=== PATIENT | female | born 1990 | race Caucasian/White ===

== ENCOUNTER → 2017-10-12 13:37 | Outpatient (CLI) | payer MEDICAID, SELFPAY ==
--- NOTE | 2017-10-12 13:37 | DT_ITS ---
This patient was seen during an EMR downtime October 11, 2017 - October 18, 2017. This patient may have a combination of paper and electronic documentation or all paper documentation. All documentation is viewable within the e-chart portion of [employer] for each patient visit.
== END ==
PROVIDERS: Family Provider Family Medicine; PCP Family Medicine; Visit Provider Obstetrics & Gynecology
DX: Z34.90 Encounter for supervision of normal pregnancy, unspecified, unspecified trimester (principal)
CPT/HCPCS: 81001; 87086; 87088

== ENCOUNTER → 2017-10-12 15:00 | Outpatient (CLI) | payer MEDICAID, SELFPAY ==
--- NOTE | 2017-10-12 15:00 | DT_ITS ---
This patient was seen during an EMR downtime October 11, 2017 - October 18, 2017. This patient may have a combination of paper and electronic documentation or all paper documentation. All documentation is viewable within the e-chart portion of [employer] for each patient visit.
[2017-10-17 10:06] LABS: Chlamydia Trachomatis by PCR Negative (Negative); Neisserai gonorrhoeae by PCR Negative (Negative); Probe Check PASS; Sample Adequacy Control PASS; Specimen Processing Control PASS
[2017-10-27 09:25] LABS: HPV APTIMA, High Risk Negative (Negative)
[2017-10-27 09:26] LABS: HPV Reflexed? YES, CHARGE PATIENT
== END ==
PROVIDERS: Visit Provider Obstetrics & Gynecology
DX: Z12.4 Encounter for screening for malignant neoplasm of cervix (principal)
CPT/HCPCS: 87491; 87591; 87624; 88175; G0145

== ENCOUNTER → 2017-10-25 14:33 | Outpatient (CLI) | payer MEDICAID, SELFPAY ==
[2017-10-25 16:21] LABS: Basophil# 0.01 X10^3/uL; Basophil% 0.1 % (0-1); Hematocrit 35.5 % (37-47); Hemoglobin 11.5 g/dl (12.0-15.0); Lymphocyte % 25.4 % (19-41); Mean Corp Hgb Conc 32.4 g/gl (32-36); Mean Corpuscular Hgb 27.6 pg (27.0-32.0); Mean Corpuscular Volume 85.3 fL (81-99); Mean Platelet Vol. 9.6 fl (6.2-12.0); Monocyte# 0.39 X10^3/uL; Monocyte% 3.8 % (0-10); Neutrophil # 7.02 X10^3/uL (2.7-7.7); Neutrophil % 68.5 % (47-70); Platelet Count 273 K/mm3 (150-450); RBC Distribution Width CV 14.3 % (11.6-14.6); RBC Distribution Width SD 43.7 fl (35.1-43.9); Red Blood Count 4.16 M/mm3 (4.2-5.4); White Blood Count 10.2 K/mm3 (4.4-11.0)
[2017-10-25 16:23] LABS: POSITIVE COUNT NO; POSITIVE DIFFERENTIAL NO; POSITIVE MORPHOLOGY NO
[2017-10-25 16:44] LABS: Glucose Challenge Gest 1H 50g 105 mg/dL (70-140)
[2017-10-25 17:09] LABS: Rubella IgG 15.9 IU/mL
[2017-10-27 09:47] LABS: HIV - WCH Non-Reactive (Nonreactive)
[2017-10-27 12:14] LABS: HEPATITIS B SURFACE AG Negative (Negative); Hep B Surface Antibodies Reactive (.)
[2017-10-29 03:47] LABS: Rapid Plasmin Reagin (RPR) NONREACTIVE (NONREACTIVE)
== END ==
PROVIDERS: Family Provider Family Medicine; PCP Family Medicine; Visit Provider Obstetrics & Gynecology
DX: Z34.90 Encounter for supervision of normal pregnancy, unspecified, unspecified trimester (principal)
CPT/HCPCS: 36415; 82950; 85025; 86592; 86703; 86706; 86762; 86850; 86900; 87340

== ENCOUNTER → 2017-10-29 10:36 | Outpatient (CLI) | payer MEDICAID, SELFPAY ==
--- NOTE | 2017-10-29 10:39 | US_ITS ---
STUDY: FIRST TRIMESTER OBSTETRICAL ULTRASOUND REASON FOR EXAM: Female, 27 years old. Threatened . LMP: August 12, 2017. TECHNIQUE: Transvaginal PRIOR ULTRASOUND: None. FINDINGS: There is visualization of a single gestational sac in a normal intrauterine position. The mean sac diameter (MSD) measures 2.51 cm, indicating an estimated gestational age (EGA) of 7 weeks, 5 days. The gestational sac shape is within normal limits. There is a 1.7 cm x 0.5 cm x 1.0 cm subchorionic fluid collection suggestive of a small subchorionic bleed. There is a visualized yolk sac. The yolk sac measures 6.1 mm. The placenta is non-visualized. There is visualization of a live embryo. The crown-rump length (CRL) measures 1.49 cm, indicating an estimated gestational age (EGA) of 7 weeks, 6 days. There is demonstrated cardiac activity with a heart rate of 149 bpm. The estimated gestation age (EGA) by LMP is 11 weeks, 1 days. The estimated date of delivery (GARY) by LMP is May 19, 2018. The estimated gestation age (EGA) by US is 7 weeks, 6 days. The estimated date of delivery (GARY) by US is June 11, 2018. The uterus measures 9.6 cm x 5.4 cm x 5.6 cm. There is no demonstrated uterine fibroid. The cervix is closed. The right ovary was not visualized. The left ovary was not visualized. There is no fluid in the cul de sac. US/Init OB < 14Wks US IMPRESSION: Single live uterine gestation with a mean gestational age of 7 weeks and 6 days. Findings suggestive of a small subchorionic bleed. Electronically Signed: Erick Rand MD at 14:10 EDT Tel [phone], Service support ,
== END ==
PROVIDERS: Family Provider Family Medicine; PCP Family Medicine; Visit Provider Obstetrics & Gynecology
DX: O20.0 Threatened abortion (principal); Z3A.00 Weeks of gestation of pregnancy not specified
CPT/HCPCS: 76801

== ENCOUNTER 2017-11-23 17:54 | Emergency (ER) | payer MEDICAID, SELFPAY ==
[2017-11-23 17:56] VITALS: BP 146/117; PULSE 95; RESP 18; TEMP 37.1; O2SAT 100; BMI 58.1
--- NOTE | 2017-11-23 18:22 | US_ITS ---
STUDY: FIRST TRIMESTER OBSTETRICAL ULTRASOUND REASON FOR EXAM: Female, 27 years old. Sharp lower pelvic pain and bleeding. LMP: September 04, 2017. TECHNIQUE: Transvaginal PRIOR ULTRASOUND: None. FINDINGS: There is visualization of a single gestational sac in a normal intrauterine position. The mean sac diameter (MSD) measures 4.94 cm, indicating an estimated gestational age (EGA) of 10 weeks, 6 days. There is no demonstrated yolk sac. There is visualization of the placenta. The placenta is anterior in location and grade 0 in appearance. There is visualization of a live embryo. The crown-rump length (CRL) measures 4.54 cm, indicating an estimated gestational age (EGA) of 11 weeks, 3 days. There is demonstrated cardiac activity with a heart rate of 164 bpm. The estimated gestation age (EGA) by LMP is 11 weeks, 3 days. The estimated date of delivery (GARY) by LMP is June 11, 2018. The estimated gestation age (EGA) by US is 11 weeks, 1 days. The estimated date of delivery (GARY) by US is June 13, 2018. The uterus measures 11 x 7.2 x 7 cm. There is no demonstrated uterine fibroid. The cervix is there is an area of increased echogenicity along the inferior aspect of the gestational sac. Etiology is uncertain. This may represent a subchorionic hematoma. The right ovary is not visualized. There is no visualized right adnexal mass or complex lesion. The left ovary measures 3.6 x 2.3 x 2.0. There is no left ovarian cyst. There is no visualized left adnexal mass or complex lesion. There is no fluid in the cul de sac. US/Transvaginal w/Preg US IMPRESSION: 1. Live single intrauterine 11 weeks, 1 day. GARY is June 13, 2018. 2. heart rate of 16 4 bpm. 3. Echogenic area between the gestational sac and cervix. Question subchorionic hemorrhage. 4. Normal left ovary. The right ovary is not seen. Electronically Signed: Julian Becerra DO at 19:30 EDT Tel [phone], Service support ,
--- NOTE | 2017-11-23 21:03 | ED.VISSUMM ---
- ER Visit Summary Date of Service: 11/23/17 Chief Complaint: Vaginal bleeding and History of Present Illness: The patient is a 27 F states that she had pelvic cramping today. Had several episodes of vaginal bleeding. Some minor clots other just spotting. Denies discharge or dysuria. She is currently at around 11 weeks. with 2 prior miscarriages. Last menstrual period was July 2017. She is currently under the care of Dr. Guardado of [facility]. Physical Examination: Well-appearing young female. Vital signs are stable afebrile. H EENT exam unremarkable. Neck nontender. Lungs clear to auscultation bilaterally. Heart regular rate and rhythm no murmur. Abdomen soft nontender normal bowel sounds no peritoneal signs. Moving all 4 extremities. Neurologically she is awake alert with no focal motor deficits. Test Results: Pelvic T ATV ultrasound was performed. Showed a 11 weeks 1 day. heart rate 164. Questionable subchorionic bleed. Quantitative hCG was 33,097. Blood type was O+. Emergency Department Course and Treatment: Repeat exam patient doing well at 2014 and 5. She will be discharged to home. She was offered but deferred a pelvic exam at this time. Treatment Plan: Follow-up with her [facility]. Disposition: Discharge Impression: Acute vaginal bleeding at 11 weeks Threatened miscarriage with 2 prior miscarriages This note was generated with [employer] dictation software. It may contain incorrect words, spelling, and punctuation that were not noted in review of the chart prior to signing ED Disposition - Plan for ED Patient: Chief Complaint: Vag Bld, Preg Referrals: Didier Albert DO [Primary Care Provider] -
--- NOTE | 2017-11-23 21:07 | DCINST.ED_ITS ---
ED Disposition - Plan for ED Patient: Disposition: Home or Assisted Living Chief Complaint: Vag Bld, Preg Instructions: ED Miscarriage Poss Referrals: Marion Naranjo MD [STAFF PHYSICIAN] - As soon as possible Additional Instructions: Call follow-up with your [facility] [employer]. Exam your bleeding or that is potentially a concern for a miscarriage. At this time you were still 11 weeks. Your blood type is O+.
[2017-11-23 21:21] VITALS: BP 134/94; PULSE 78; RESP 16; O2SAT 98
== END 2017-11-23 21:22 | disposition home or self-care (01) ==
PROVIDERS: Emergency Provider Emergency Medicine; Family Provider Family Medicine; PCP Family Medicine
DX: O20.0 Threatened abortion (principal); O99.89 Other specified diseases and conditions complicating pregnancy, childbirth and the puerperium; R11.2 Nausea with vomiting, unspecified; Z90.49 Acquired absence of other specified parts of digestive tract; Z3A.11 11 weeks gestation of pregnancy
CPT/HCPCS: 76817; 84702; 86900; 99282

== ENCOUNTER → 2018-01-17 16:40 | Outpatient (CLI) | payer MEDICAID, SELFPAY ==
--- NOTE | 2018-01-17 16:48 | US_ITS ---
STUDY: SECOND AND THIRD TRIMESTER OBSTETRICAL ULTRASOUND - LIMITED REASON FOR EXAM: Female, 27 years old. Routine survey. LMP: November 23, 2017 PRIOR ULTRASOUND: None. TECHNIQUE: Transabdominal ultrasound evaluation was performed. The study is limited due to the patient's body habitus. FINDINGS: There is a single intrauterine fetus. The fetus is in a cephalic presentation. There is demonstrated cardiac activity with a heart rate of 150 bpm. There are Grade 1 placental changes. BIOMETRY: Not visualized due to patient's body habitus. US/OB Limited (No Biometrics) IMPRESSION: Live intrauterine gestation. Marked degree of the limited view due to the patient's body habitus. Electronically Signed: Erick Rand MD at 13:38 EDT Tel [phone], Service support ,
== END ==
PROVIDERS: Family Provider Family Medicine; PCP Family Medicine; Visit Provider Obstetrics & Gynecology
DX: Z34.82 Encounter for supervision of other normal pregnancy, second trimester (principal)
CPT/HCPCS: 76805; 76815

== ENCOUNTER 2018-01-24 14:21 | Emergency (ER) | payer MEDICAID, SELFPAY ==
[2018-01-24 14:21] VITALS: BP 160/86; PULSE 96; RESP 18; TEMP 36.3; O2SAT 98; BMI 59.7
--- NOTE | 2018-01-24 14:32 | EKG12_ITS ---
Test Reason : SOB Blood Pressure : / mmHG Vent. Rate : 079 BPM Atrial Rate : 079 BPM P-R Int : 150 ms QRS Dur : 094 ms QT Int : 376 ms P-R-T Axes : 038 010 021 degrees QTc Int : 431 ms Normal sinus rhythm Normal ECG Confirmed by DANE RESENDIZ, AJIT ([id number]), editorial assistant MORENO OWUSU ([id number]) on 01/27/2018 1:08:54 PM Referred By: Marion Naranjo Confirmed By:AJIT VELA MD
[2018-01-24 14:39] VITALS: BP 134/114; PULSE 72; RESP 23; O2SAT 97; O2SAT 98
--- NOTE | 2018-01-24 15:15 | RAD_ITS ---
STUDY: X-RAY CHEST REASON FOR EXAM: Female, 27 years old. Dyspnea and shortness of breath. Syncopal episodes. The patient is 20 weeks . The patient was shielded appropriately. TECHNIQUE: PA and lateral views of the chest. COMPARISON: None. FINDINGS: EKG electrodes are seen. The lungs are clear and expanded. There is no demonstrated pleural abnormality. Normal size heart. Normal mediastinum and fallon. Normal visualized pulmonary arteries. Normal visualized aortic arch and descending thoracic aorta. Normal visualized thoracic spine. Normal visualized ribs, clavicles, and shoulders. There is no demonstrated abnormality of the visualized soft tissue structures of the upper abdomen. RAD/Chest PA and Lateral IMPRESSION: Normal x-ray examination of the chest. Electronically Signed: Erick Rand MD at 15:33 EDT Tel [phone], Service support ,
[2018-01-24 15:23] LABS: Absolute Lymphocyte Count 2.27 X10^3/ul (0.83-4.51); Absolute Neutrophil Count 7.8 X10^3/uL (2.0-7.7); Basophil# 0.02 X10^3/uL; Basophil% 0.2 % (0-1); Eosinophil# 0.15 X10^3/uL; Eosinophils% 1.4 % (0-5); Hematocrit 30.8 % (37-47); Hemoglobin 10.3 g/dl (12.0-15.0); Lymphocyte # 2.27 X10^3/ul (4.0); Lymphocyte % 20.9 % (19-41); Mean Corp Hgb Conc 33.4 g/gl (32-36); Mean Corpuscular Hgb 28.9 pg (27.0-32.0); Mean Corpuscular Volume 86.5 fL (81-99); Mean Platelet Vol. 9.5 fl (6.2-12.0); Monocyte# 0.62 X10^3/uL; Monocyte% 5.7 % (0-10); Neutrophil # 7.75 X10^3/uL (2.7-7.7); Neutrophil % 71.2 % (47-70); Platelet Count 247 K/mm3 (150-450); RBC Distribution Width CV 15.8 % (11.6-14.6); RBC Distribution Width SD 48.2 fl (35.1-43.9); Red Blood Count 3.56 M/mm3 (4.2-5.4); White Blood Count 10.9 K/mm3 (4.4-11.0)
[2018-01-24 15:26] LABS: POSITIVE COUNT NO; POSITIVE DIFFERENTIAL NO; POSITIVE MORPHOLOGY NO
[2018-01-24 15:28] LABS: Partial Thromboplast Time 28.8 Seconds (24.1-36.2)
[2018-01-24 15:36] LABS: ALB/GLOB Ratio 0.6 RATIO (0.9-2.4); AST(SGOT) 12 U/L (15-37); Alanine Aminotransfer ALT/SGPT 26 U/L (13-56); Albumin, Serum 2.7 g/dL (3.2-5.0); Alkaline Phosphatase 73 U/L (45-117); Anion Gap 9 (5-15); BUN 7 mg/dL (7-18); BUN/Creat Ratio 13.2 RATIO (10-20); Calcium,Total 8.6 mg/dL (8.5-10.1); Chloride 107 mmol/L (98-107); Creatinine, Serum 0.53 mg/dL (0.55-1.02); EST Glomerular Filtration Rate 147 mL/min (>60); Est Glom Filt Rate - Afr Amer 178 mL/min (>60); Estimated Creatinine Clearance 137.68 ml/min; Globulin 4.3 g/dL (2.2-4.2); Glucose 70 mg/dL (74-106); LDH 135 U/L (84-246); Potassium 3.7 mmol/L (3.5-5.1); Sodium Level 138 mmol/L (136-145); Uric Acid 4.2 mg/dL (2.6-6.0)
[2018-01-24 15:39] LABS: D-Dimer Quantitative (DVT/PE) < 0.27 FEU/ug/m (0.27-0.49)
[2018-01-24 15:40] VITALS: BP 111/61; PULSE 76; RESP 20; O2SAT 97
[2018-01-24] MEDS: Ondansetron 4 MG/2 ML Vial IV (15:48)
[2018-01-24 16:08] LABS: Mucous, Urine 0 SEEN /hpf (<or=2+); Red Blood Cells-Urine 0 SEEN /hpf (0-5); White Blood Cells 0 SEEN /hpf (0-5)
[2018-01-24 16:15] LABS: Color, Urine Yellow (Yellow); Glucose, Dipstick Normal (Normal); Ketone-Dipstick Negative (Negative); Leukocyte Esterase-Dipstick 25 /ul (Negative); Nitrite-Dipstick Negative (Negative); Occult Blood-Urine Negative /ul (Negative); Protein-Dipstick 15 mg/dl (Negative); Specific Gravity, Urine 1.015 (1.002-1.030); Urine Bilirubin Dipstick Negative (Negative); Urine Clarity Sl. Cloudy (Clear); Urine Urobilinogen 1 mg/dl (Normal); Urine pH 6.5 (5.0 - 8.0)
[2018-01-24 16:31] LABS: Bacteria 3+ /hpf (None Seen); Squamous Epithelial Cells - UA 5-10 SEEN /hpf (5-10)
--- NOTE | 2018-01-24 16:39 | ED.VISSUMM ---
- ER Visit Summary Date of Service: 01/24/18 Chief Complaint: Chest pressure and shortness of breath History of Present Illness: The patient is a 27 F who is a Ab2 female who presents with chest pressure and shortness of breath that started abruptly. She states she cannot walk more than 25 feet without becoming dyspneic. She denies back pain. She denies leg pain, swelling discoloration. She denies fever, chills night sweats. She denies URI symptoms. She does complain of nausea without vomiting or diarrhea. She does complain complain of frequency without urgency, hematuria or dysuria. She denies any skin lesions. Physical Examination: Initial blood pressure 160/86 with a heart rate of 96. Pulse ox was 98% on room air. She appears slightly anxious. Does not appear in discomfort. Head is atraumatic normocephalic. Pupils are equal round reactive. Extraocular muscles are intact. TMs are pearly white with landmarks noted. Nares patent with no drainage. Posterior pharynx without erythema or exudate. Uvula is midline. There is no dysphonia or dysphasia. Trachea is midline. There is no stridor with auscultation of the neck. Heart is regular without murmur, gallop or rub. S1 and S2 are normal. Lungs are clear to auscultation with good movement of air bilaterally. Abdomen is soft nontender. Patient is alert and oriented ?3. Motor is 5 over 5. Sensory is intact. DTRs are symmetric with no clonus or Babinski sign. Cranial 2 through 12 are intact. Cerebellar testing is normal. There is no pedal edema. There is no asymmetry, swelling, discoloration, leg vein distention, palpable cords or tenderness along the distribution of the deep venous system. Test Results: EKG was obtained and reveals a sinus rhythm rate of 79 with normal [place] interval, QRS duration and QT interval. [place] is normal. Chest x-ray was obtained and reveals normal cardiac silhouette, mediastinum, lung parenchyma and osseous structures. There is no effusion. CBC is remarkable for an H&H 10.3 and 38.8. CMP is remarkable for an albumin 2.7. Coags are normal. Uric acid is normal. UA is a contaminated specimen. D-dimer is less than 0.27. Emergency Department Course and Treatment: With history of abrupt onset of chest discomfort dyspnea and 20 weeks gestation differential includes pulmonary embolus, pneumothorax, preeclampsia. Doubt cardiac and doubt pneumonia. Case was discussed with her civil clerk Dr. Marion Naranjo. Most recent blood pressure was normal. Treatment Plan: After discussion with her civil clerk patient to be discharged to home with follow-up in the next week Disposition: Discharged to home Impression: 1. Chest pain with dyspnea of unknown etiology 2. Transient hypertension 3. Anemia secondary to , second trimester This note was generated with [employer] dictation software. It may contain incorrect words, spelling, and punctuation that were not noted in review of the chart prior to signing ED Disposition - Plan for ED Patient: Disposition: Home or Assisted Living Chief Complaint: Shortness of Breath Instructions: ED Chest Pain NonCardiac Referrals: Didier Albert DO [Primary Care Provider] - Marion Naranjo MD [STAFF PHYSICIAN] - Keep Amanda appointment
--- NOTE | 2018-01-24 16:44 | ED.DCSUM_ITS ---
- ER Visit Summary Date of Service: 01/24/18 Chief Complaint: Chest pressure and shortness of breath History of Present Illness: The patient is a 27 F who is a Ab2 female who presents with chest pressure and shortness of breath that started abruptly. She states she cannot walk more than 25 feet without becoming dyspneic. She denies back pain. She denies leg pain, swelling discoloration. She denies fever, chills night sweats. She denies URI symptoms. She does complain of nausea without vomiting or diarrhea. She does complain complain of frequency without urgency, hematuria or dysuria. She denies any skin lesions. Physical Examination: Initial blood pressure 160/86 with a heart rate of 96. Pulse ox was 98% on room air. She appears slightly anxious. Does not appear in discomfort. Head is atraumatic normocephalic. Pupils are equal round reactive. Extraocular muscles are intact. TMs are pearly white with landmarks noted. Nares patent with no drainage. Posterior pharynx without erythema or exudate. Uvula is midline. There is no dysphonia or dysphasia. Trachea is midline. There is no stridor with auscultation of the neck. Heart is regular without murmur, gallop or rub. S1 and S2 are normal. Lungs are clear to auscultation with good movement of air bilaterally. Abdomen is soft nontender. Patient is alert and oriented ?3. Motor is 5 over 5. Sensory is intact. DTRs are symmetric with no clonus or Babinski sign. Cranial 2 through 12 are intact. Cerebellar testing is normal. There is no pedal edema. There is no asymmetry, swelling, discoloration, leg vein distention, palpable cords or tenderness along the distribution of the deep venous system. Test Results: EKG was obtained and reveals a sinus rhythm rate of 79 with normal MI interval, QRS duration and QT interval. [place] is normal. Chest x-ray was obtained and reveals normal cardiac silhouette, mediastinum, lung parenchyma and osseous structures. There is no effusion. CBC is remarkable for an H&H 10.3 and 38.8. CMP is remarkable for an albumin 2.7. Coags are normal. Uric acid is normal. UA is a contaminated specimen. D-dimer is less than 0.27. Emergency Department Course and Treatment: With history of abrupt onset of chest discomfort dyspnea and 20 weeks gestation differential includes pulmonary embolus, pneumothorax, preeclampsia. Doubt cardiac and doubt pneumonia. Case was discussed with her orthotic and prosthetic technician Dr. Marion Naranjo. Most recent blood pressure was normal. Treatment Plan: After discussion with her orthotic and prosthetic technician patient to be discharged to home with follow-up in the next week Disposition: Discharged to home Impression: 1. Chest pain with dyspnea of unknown etiology 2. Transient hypertension 3. Anemia secondary to , second trimester This note was generated with [employer] dictation software. It may contain incorrect words, spelling, and punctuation that were not noted in review of the chart prior to signing ED Disposition - Plan for ED Patient: Disposition: Home or Assisted Living Chief Complaint: Shortness of Breath Instructions: ED Chest Pain NonCardiac Referrals: Didier Albert DO [Primary Care Provider] - Marion Naranjo MD [STAFF PHYSICIAN] - Keep Amanda appointment
[2018-01-24 17:02] VITALS: BP 146/73; PULSE 72; RESP 18; O2SAT 95
== END 2018-01-24 17:04 | disposition home or self-care (01) ==
PROVIDERS: Emergency Provider Emergency Medicine; Family Provider Family Medicine; PCP Family Medicine
DX: O99.89 Other specified diseases and conditions complicating pregnancy, childbirth and the puerperium (principal); R07.89 Other chest pain; R06.00 Dyspnea, unspecified; O13.2 Gestational [pregnancy-induced] hypertension without significant proteinuria, second trimester; O99.012 Anemia complicating pregnancy, second trimester; D64.9 Anemia, unspecified; Z3A.20 20 weeks gestation of pregnancy
CPT/HCPCS: 71046; 80053; 81001; 83615; 84484; 84550; 85025; 85379; 85610; 85730; 93005; 96374; 99284; A4216; J2405

== ENCOUNTER 2018-03-21 09:31 | Outpatient (RCR) | payer MEDICAID, SELFPAY | END 2018-03-21 23:59 | LOC: NS 09:31 | PROVIDERS: Family Provider Family Medicine; PCP Family Medicine; Visit Provider Obstetrics & Gynecology | DX: O26.02 Excessive weight gain in pregnancy, second trimester (principal); Z71.3 Dietary counseling and surveillance | CPT/HCPCS: 36415; 82950; 85025; 97802 ==

== ENCOUNTER → 2018-03-21 16:04 | Outpatient (CLI) | payer MEDICAID, SELFPAY ==
[2018-03-21 17:13] LABS: Absolute Lymphocyte Count 2.09 X10^3/ul (0.83-4.51); Absolute Neutrophil Count 7.9 X10^3/uL (2.0-7.7); Basophil# 0.02 X10^3/uL; Basophil% 0.2 % (0-1); Eosinophil# 0.17 X10^3/uL; Eosinophils% 1.5 % (0-5); Hematocrit 30.6 % (37-47); Lymphocyte # 2.09 X10^3/ul (4.0); Lymphocyte % 19.1 % (19-41); Mean Corp Hgb Conc 32.7 g/gl (32-36); Mean Corpuscular Hgb 29.1 pg (27.0-32.0); Mean Platelet Vol. 9.6 fl (6.2-12.0); Monocyte# 0.67 X10^3/uL; Monocyte% 6.1 % (0-10); Neutrophil # 7.94 X10^3/uL (2.7-7.7); Neutrophil % 72.4 % (47-70); Platelet Count 239 K/mm3 (150-450); RBC Distribution Width CV 15.8 % (11.6-14.6); RBC Distribution Width SD 49.3 fl (35.1-43.9); Red Blood Count 3.44 M/mm3 (4.2-5.4)
[2018-03-21 17:27] LABS: Glucose Challenge Gest 1H 50g 93 mg/dL (70-140)
[2018-03-21 17:29] LABS: POSITIVE COUNT NO; POSITIVE DIFFERENTIAL NO; POSITIVE MORPHOLOGY NO
== END ==
PROVIDERS: Nurse Practitioner Women's Health; Family Provider Family Medicine; PCP Family Medicine; Referring Provider Obstetrics & Gynecology; Visit Provider Obstetrics & Gynecology
DX: Z34.90 Encounter for supervision of normal pregnancy, unspecified, unspecified trimester (principal); Z71.3 Dietary counseling and surveillance
CPT/HCPCS: 36415; 82950; 85025; 97802

== ENCOUNTER 2018-03-27 19:05 | Outpatient (CLI) | payer MEDICAID, SELFPAY ==
[2018-03-27 19:32] VITALS: BMI 62.4
--- NOTE | 2018-03-28 21:01 | OB.TRI.NOTE ---
- Problem List (1) Decreased movement Status: Acute History of Present Illness Date of Service: 03/27/18 Was patient seen by the physician?: No Reason For Visit: DFM History of Present Illness: decreased movement Allergies codeine Allergy (Unknown, Verified 03/27/18 19:34) Unknown acetaminophen [From Vicodin] Allergy (Verified 03/27/18 19:34) Unknown hydrocodone [From Vicodin] Allergy (Verified 03/27/18 19:34) Unknown latex Allergy (Verified 03/27/18 19:34) Rash Penicillins Allergy (Verified 03/27/18 19:34) Unknown - Pertinent Past Medical History Medical History: Past Medical History (Last Reviewed 03/21/18 @ 15:22 by Tayler Piña) cholecystctomy tubes in ears Surgical History: Past Surgical History (Last Reviewed 03/21/18 @ 15:15 by Tayler Piña) toncillectomy NST - FHR Rate Baby A Baseline: 120 Variability:: Moderate Accelerations:: 10 x 10 Decelerations:: None NST Reactive:: Yes FHR Category:: Category I Uterine Activity:: no regular Impression/Plan decreased movement- reactive and getstational age appropriate dc home
== END 2018-03-27 20:50 | disposition home or self-care (01) ==
LOC: WPOUT 19:09 → WP 19:10
PROVIDERS: Family Provider Family Medicine; PCP Family Medicine; Visit Provider Obstetrics & Gynecology
DX: O36.8190 Decreased fetal movements, unspecified trimester, not applicable or unspecified (principal); Z3A.00 Weeks of gestation of pregnancy not specified
CPT/HCPCS: 59025; 59050; 99218; G0378

== ENCOUNTER 2018-04-04 13:40 | Outpatient (CLI) | payer MEDICAID, SELFPAY ==
[2018-04-04 14:03] VITALS: BMI 62.7
--- NOTE | 2018-04-06 08:27 | OB.TRI.NOTE ---
History of Present Illness Date of Service: 04/04/18 Was patient seen by the physician?: No Reason For Visit: DECREASED MOVEMENT Date of Service: 04/04/18 Final GARY: 06/11/18 Final GARY Source: US <20 weeks Gestational age: 30 Weeks and 2 Days History of Present Illness: 27 yo female presents for eval 2/2 dec movement. (High BMI). Allergies codeine Allergy (Unknown, Verified 03/27/18 19:34) Unknown acetaminophen [From Vicodin] Allergy (Verified 03/27/18 19:34) Unknown hydrocodone [From Vicodin] Allergy (Verified 03/27/18 19:34) Unknown latex Allergy (Verified 03/27/18 19:34) Rash Penicillins Allergy (Verified 03/27/18 19:34) Unknown - Pertinent Past Medical History Medical History: Past Medical History (Last Reviewed 03/21/18 @ 15:22 by Tayler Piña) cholecystctomy tubes in ears Surgical History: Past Surgical History (Last Reviewed 03/21/18 @ 15:15 by Tayler Piña) toncillectomy NST - FHR Rate Baby A Baseline: 130-140s avg with accels 150s variables 120 Variability:: Moderate Accelerations:: 15 x 15, 10 x 10 Decelerations:: Variable NST Reactive:: Appropriate for gestational age FHR Category:: Category I Uterine Activity:: Intermittent tracing, high BMI. No UCs noted. Impression/Plan 30 2/7 wk EGA Maternal c/o Dec movement NST reassuring for 30 wks Home. Keep next appt. kick count instructions to be given.
== END 2018-04-04 16:01 | disposition home or self-care (01) ==
LOC: LAB 13:43 → WP 13:44
PROVIDERS: Family Provider Family Medicine; PCP Family Medicine; Referring Provider Obstetrics & Gynecology; Visit Provider Obstetrics & Gynecology
DX: O36.8130 Decreased fetal movements, third trimester, not applicable or unspecified (principal); O76 Abnormality in fetal heart rate and rhythm complicating labor and delivery; Z3A.30 30 weeks gestation of pregnancy
CPT/HCPCS: 59025; 59050; 99218; G0378

== ENCOUNTER → 2018-05-16 12:49 | Outpatient (CLI) | payer MEDICAID, SELFPAY ==
[2018-05-16 10:19] VITALS: BMI 62.7
== END ==
PROVIDERS: Family Provider Family Medicine; PCP Family Medicine; Referring Provider Obstetrics & Gynecology; Visit Provider Obstetrics & Gynecology
DX: Z34.90 Encounter for supervision of normal pregnancy, unspecified, unspecified trimester (principal)
CPT/HCPCS: 87081

== ENCOUNTER 2018-05-27 20:35 | Outpatient (CLI) | payer MEDICAID, SELFPAY ==
[2018-05-23 11:13] VITALS: BMI 62.7
[2018-05-27 22:14] VITALS: BMI 65.0
--- NOTE | 2018-05-31 19:31 | OB.TRI.NOTE ---
- Problem List (1) Decreased movement Status: Acute (2) Anemia during Status: Acute Comment: To start iron (3) Status: Acute Qualifiers: Comment: genetic, ntd and carrier screening declined. Growth US-normal. Growth US every 4 weeks with weekly BPP. Weekly NST; normal BPP 04/28/18 (4) Supervision of normal Status: Acute Qualifiers: Comment: PRR GARY 06/11/18 boy- Junaid Kristopher (5) Obesity affecting Status: Acute Qualifiers: Comment: 1st trimester glucola normal and plan weekly bpps with MFM, growth q4 weeks after 32 weeks, MFM recommends delivery at 39-40 weeks (6) ASCUS favor benign Status: Acute Comment: 2018 ascus hpv neg History of Present Illness Date of Service: 05/31/18 Was patient seen by the physician?: No Reason For Visit: DECREASED MOVEMENT Final GARY Source: US <20 weeks History of Present Illness: decreased movement Allergies codeine Allergy (Unknown, Verified 05/30/18 11:29) Unknown acetaminophen [From Vicodin] Allergy (Verified 05/30/18 11:29) Unknown hydrocodone [From Vicodin] Allergy (Verified 05/30/18 11:29) Unknown latex Allergy (Verified 05/30/18 11:29) Rash Penicillins Allergy (Verified 05/30/18 11:29) Unknown - Pertinent Past Medical History Surgical History: Past Surgical History (Last Reviewed 05/30/18 @ 11:29 by Tayler Piña) History of placement of ear tubes History of tonsillectomy Hx of cholecystectomy Review of Systems Constitutional: Denies: Fever, Malaise Eyes: Denies: Blurred vision, Vision Change HEENT: Denies: Head Aches, Visual Changes Cardiovascular: Denies: Chest Pain, Palpitations Respiratory: Denies: Cough, Shortness of Breath, Wheezing Gastrointestinal: Denies: Abdominal Pain, Diarrhea, Nausea, Vomiting Genitourinary: Denies: Dysuria, Hematuria Musculoskeletal: Denies: Joint Pain, Muscle pain Skin: Denies: Lesions, Rash Neurological: Denies: Blurred vision, Focal weakness, Headaches Psychiatric: Denies: Anxiety, Depression Endocrine: Denies: Heat/ Cold Intolerance Hematologic/ Lymphatic: Denies: Easy Bruising, Easy Bleeding NST - FHR Rate Baby A Baseline: 130 Variability:: Moderate Accelerations:: 15 x 15 Decelerations:: None NST Reactive:: Yes FHR Category:: Category I Uterine Activity:: no regular Impression/Plan decreased movement - reactive no decels
--- OUTSIDE RECORDS SUMMARY | 2018-08-01 08:36 | XMS RPT_ITS ---
:1990 Author Organization OHIP Support Name Relationship Address Phone KRISTOPHER REYES Unavailable [id number] + [place] [address] HOME INSTEAD Unavailable [address] + [address] [place] [address] KRISTOPHER REYES Unavailable [address] + [place] [address] HOME INSTEAD Unavailable [address] + [address] [place] [address] KRISTOPHER REYES Unavailable [address] + [place] [address] HOME INSTEAD Unavailable [address] + [address] [place] [address] KRISTOPHER REYES Unavailable [address] + [place] [address] HOME INSTEAD Unavailable [address] + [address] [place] [address] KRISTOPHER REYES Unavailable [address] + [place] [address] KRISTOPHER REYES Unavailable [address] + [place] [address] HOME INSTEAD Unavailable [address] + [address] [place] [address] KRISTOPHER REYES Unavailable [address] + [place] [address] KRISTOPHER REYES Unavailable [address] + [place] [address] HOME INSTEAD Unavailable [address] + [address] [place] [address] KRISTOPHER REYES Unavailable [address] + [place] [address] HOME INSTEAD Unavailable [address] + [address] [place] [address] REYES, KRISTOPHER Unavailable [address] + [place] [address] REYES, KRISTOPHER Unavailable [address] + [place] [address] HOME INSTE[employer] Unavailable [address] + [address] [place] [address] REYES, KRISTOPHER Unavailable [address] + [place] [address] ERIC KRISTOPHER Unavailable [address] + [place] [address] ERIC KRISTOPHER Unavailable [address] + [place] [address] ERIC KRISTOPHER Unavailable [address] + [place] [address] HOME INSTEAD Unavailable [address] + [address] [place] [address] ERIC KRISTOPHER Unavailable [address] + [place] [address] HOME INSTE[employer] Unavailable [address] + [address] [place] [address] ERIC, KRISTOPHER Unavailable [address] + [place] [address] HOME INSTEAD Unavailable [address] + [address] [place] [address] ERIC KRISTOPHER Unavailable [address] + [place] [address] HOME INSTE[employer] Unavailable [address] + [address] [place] [address] ERIC KRISTOPHER Unavailable [address] + [place] [address] HOME INSTEAD Unavailable [address] + [address] [place] [address] ERIC KRISTOPHER Unavailable [address] + [place] [address] HOME INSTEAD Unavailable [address] + [address] [place] [address] KRISTOPHER REYES Unavailable [address] + [place] [address] HOME INSTEAD Unavailable [address] + [address] [place] [address] KRISTOPHER REYES Unavailable [address] + [place] [address] HOME INSTEAD Unavailable [address] + [address] [place] [address] KRISTOPHER REYES Unavailable [address] + [place] [address] HOME INSTEAD Unavailable [address] + [address] [place] [address] KRISTOPHER REYES Unavailable [address] + [place] [address] KRISTOPHER REYES Unavailable [address] + [place] [address] HOME INSTEAD Unavailable [address] + [address] [place] [address] KRISTOPHER REYES Unavailable [address] + [place] [address] HOME INSTEAD Unavailable [address] + [address] [place] [address] KRISTOPHER REYES Unavailable [address] + [place] [address] KRISTOPHER REYES Unavailable [address] + [place] [address] KRISTOPHER REYES Unavailable [address] + [place] [address] HOME INSTEAD Unavailable [address] + [address] [place] [address] KRISTOPHER REYES Unavailable [address] + [place] [address] UE Unavailable Unavailable Unavailable KRISTOPHER REYES Unavailable [address] + [place] [address] DANII, ANGELA Unavailable [address] + [place] [address] KRISTOPHER REYES Unavailable [address] + [place] [address] UE Unavailable Unavailable Unavailable DANIIROMEROCY Unavailable [address] + [place] [address] KRISTOPHER REYES Unavailable [address] + [place] [address] UE Unavailable Unavailable Unavailable DANIIROMEROCY Unavailable [address] + [place] [address] KRISTOPHER REYES Unavailable [address] + [place] [address] UE Unavailable Unavailable Unavailable DANIIROMEROCY Unavailable [address] + [place] [address] KRISTOPHER REYES Unavailable [address] + [place] [address] UE Unavailable Unavailable Unavailable DANIIROMEROCY Unavailable [address] + [place] [address] KRISTOPHER REYES Unavailable [address] + [place] [address] UE Unavailable Unavailable Unavailable DANIIROMEROCY Unavailable [address] + [place] [address] KRISTOPHER REYES Unavailable [address] + [place] [address] UE Unavailable Unavailable Unavailable DANIIROMEROCY Unavailable [address] + [place] [address] KRISTOPHER REYES Unavailable [address] + [place] [address] UE Unavailable Unavailable Unavailable UNKNOWN Unavailable Unavailable + [place] [address] DANIIROMEROCY Unavailable [address] + [place] [address] KRISTOPHER REYES Unavailable [address] + [place] [address] UE Unavailable Unavailable Unavailable Care Team Providers Name Role Phone Renee Mahoney Attending Unavailable Didier Albert Referring Unavailable Marion Guardado Attending Unavailable Bety, Didier Referring Unavailable [place], Renee Attending Unavailable [place], Didier Referring Unavailable Marcanthony, Marion Attending Unavailable Bety, Didier Referring Unavailable Marcanthony, Marion Attending Unavailable Marcanthony, Marion Referring Unavailable Bety, Didier Primary Care Unavailable Marcanthony, Marion Attending Unavailable [place], Didier Referring Unavailable Marcanthony, Marion Attending Unavailable Marcanthony, Marion Referring Unavailable Bety, Didier Primary Care Unavailable Marcanthony, Marion Attending Unavailable Bety, Didier Referring Unavailable Marcanthony, Marion Attending Unavailable [place], Didier Primary Care Unavailable Marcanthony, Marion Referring Unavailable Marcanthony, Marion Attending Unavailable Marcanthony, Marion Referring Unavailable Bety, Didier Primary Care Unavailable Marcanthony, Marion Consulting Unavailable Marcanthony, Marion Attending Unavailable Marcanthony, Marion Referring Unavailable [place], Didier Primary Care Unavailable Marcanthony, Marion Attending Unavailable Marcanthony, Marion Attending Unavailable Marcanthony, Marion Attending Unavailable Marcanthony, Marion Referring Unavailable [place], Didier Primary Care Unavailable Marcanthony, Marion Attending Unavailable Bety, Didier Primary Care Unavailable Ricky Pedro Attending Unavailable [place], Didier Primary Care Unavailable Marcanthony, Marion Attending Unavailable [place], Didier Referring Unavailable [place], Didier Primary Care Unavailable Marcanthony, Marion Attending Unavailable Bety, Didier Referring Unavailable Bety, Didier Primary Care Unavailable Marcanthony, Marion Attending Unavailable Marcanthony, Marion Referring Unavailable [place], Didier Primary Care Unavailable Bety, Didier Primary Care Unavailable De La Cruz, Syed Attending Unavailable Marcanthony, Marion Attending Unavailable Bety, Didier Referring Unavailable Marcanthony, Marion Attending Unavailable [place], Didier Primary Care Unavailable DenzelRenee Attending Unavailable Bety, Didier Referring Unavailable Marcanthony, Marion Attending Unavailable Marcanthony, Marion Referring Unavailable [place], Didier Primary Care Unavailable Marcanthony, Marion Attending Unavailable [place], Didier Primary Care Unavailable Marcanthony, Marion Attending Unavailable Bety, Didier Primary Care Unavailable Marcanthony, Marion Consulting Unavailable Itzel Bateman Attending Unavailable Itzel Bateman Referring Unavailable [place], Didier Primary Care Unavailable Marcanthony, Marion Attending Unavailable [place], Didier Referring Unavailable Marcanthony, Marion Attending Unavailable Bety, Didier Primary Care Unavailable FELISHA KOLB Attending Unavailable MARCANTHONY, MARION E Referring Unavailable NO PRIMARY CARE, Primary Care Unavailable FELISHA KOLB Attending Unavailable MARCANTHONY, MARION E Referring Unavailable NO PRIMARY CARE, Primary Care Unavailable VIKTORIA OLSON Attending Unavailable MARCANTHONY, MARION E Referring Unavailable NO PRIMARY CARE, Primary Care Unavailable NIDHI COTTRELL Attending Unavailable MARCANTHONY, MARION E Referring Unavailable NO PRIMARY CARE, Primary Care Unavailable VIKTORIA OLSON Attending Unavailable MARCANTHONY, MARION E Referring Unavailable NO PRIMARY CARE, Primary Care Unavailable NIDHI COTTRELL Attending Unavailable MARCANTHONY, MARION E Referring Unavailable NO PRIMARY CARE, Primary Care Unavailable MARLY JACOBS Attending Unavailable MARCANTHONY, MARION E Referring Unavailable NO PRIMARY CARE, Primary Care Unavailable DARCI ESPINOZA Attending Unavailable MARCANTHONY, MARION E Referring Unavailable NO PRIMARY CARE, Primary Care Unavailable NIDHI COTTRELL Attending Unavailable MARCANTHONY, MARION E Referring Unavailable NO PRIMARY CARE, Primary Care Unavailable MARLY JACOBS Attending Unavailable MARCANTHONY, MARION E Referring Unavailable NO PRIMARY CARE, Primary Care Unavailable DARCI ESPINOZA Attending Unavailable MARCANTHONY, MARION E Referring Unavailable NO PRIMARY CARE, Primary Care Unavailable PROBLEMS PROBLEMS DATE TYPE CONDITION / CODE ATTENDING STATUS SOURCE 05/31/2018 Unknown R80.9 - Marcanthony, Active [place] Proteinuria, [facility] unspecified / Hospital R80.9(ICD-10) Repository 05/23/2018 Unknown Z34.83 - Encounter Marcanthony, Active [place] for supervision of [facility] other normal Hospital , third Repository trimester / Z34.83(ICD-10) 05/23/2018 Unknown O99.213 - Obesity Marcanthony, Active [place] complicating [facility] , third Hospital trimester / Repository O99.213(ICD-10) 05/23/2018 Unknown O99.019 - Anemia Marcanthony, Active [place] complicating [facility] , Hospital unspecified Repository trimester / O99.019(ICD-10) 05/23/2018 Unknown Z3A.37 - 37 weeks Marcanthony, Active [place] gestation of [facility] / Hospital Z3A.37(ICD-10) Repository 05/16/2018 Unknown Z34.90 - Encounter Marcanthony, Active [place] for supervision of [facility] normal , Hospital unspecified, Repository unspecified trimester / Z34.90(ICD-10) 05/16/2018 Unknown Z3A.36 - 36 weeks Jose A, Active [place] gestation of [facility] / Hospital Z3A.36(ICD-10) Repository 05/05/2018 Unknown Z3A.34 - 34 weeks Renee Mahoney Active [place] gestation of [facility] / Hospital Z3A.34(ICD-10) Repository 04/07/2018 Unknown Z3A.30 - 30 weeks Jose A, Active [place] gestation of [facility] / Hospital Z3A.30(ICD-10) Repository 04/09/2018 Unknown O26.02 - Excessive Jose A, Active [place] weight gain in [facility] , second Hospital trimester / Repository O26.02(ICD-10) 02/21/2018 Unknown O99.210 - Obesity Jose A, Active [place] complicating [facility] , Hospital unspecified Repository trimester / O99.210(ICD-10) 12/06/2017 Unknown N93.9 - Abnormal Willis Ricky Active [place] uterine and [facility] vaginal bleeding, Hospital unspecified / Repository N93.9(ICD-10) 11/09/2017 Unknown Z12.4 - Encounter David Guardado for screening for [facility] malignant neoplasm Hospital of cervix / Repository Z12.4(ICD-10) 06/27/2017 Admitting Unknown / NA Active [facility] Medical diagnosis UNK(Unknown) [facility] Repository PROCEDURES PROCEDURES No Procedure Records FoundRESULTS RESULTS PROTEIN+CREATININE Collected: Status: F Source: [place] RATIO,URINE 05/30/2018 5:51 PM [facility] REPOSITORY TYPE CODE TESTS RESULT OUT OF RANGE REFERENCE UNITS LAB L501.1200 NO RANGE EST. mg/dL Normal UR CREAT 277.00 LAB L501.1930 <11.9 mg/dL High 67.7 PROTEIN,UR.R AN. LAB L501.1940 0-200 mg/g CRE High PROT:CRE 244 RATIO Performed By: #### L501.0900 #### [facility] [address] [place], [address] GATE GUARD OFFICE VISIT Observed: 05/30/2018 Status: F Source: [place] REPORT 1:19 PM [facility] REPOSITORY [facility] [address] [place], [place] [address] OFFICE VISIT Date of Service: 05/30/18 MR#: [id number] Acct: [id number] Name: VIKTORIA REYES Rep #: [id number] : 1990 Provider: Marion Guardado MD Age/Sex: 27/F Location: [facility] [place] Status: Signed Intake Vital Signs05/30/18 Body Mass Index (BMI) 65.0 05/30/18 Height 5 ft 4 in 05/30/18 Weight: 375 lb 05/30/18 Body Mass Index (BMI) 64.3 05/30/18 Blood Pressure 134/74 H Intake Visit Reasons: 38 WEEK OB Chief Complaint: est ob Drug Counselor Required: No Is patient in pain?: No Allergies codeine Allergy (Unknown, Verified 05/30/18 11:29) Unknown acetaminophen [From Vicodin] Allergy (Verified 05/30/18 11:29) Unknown hydrocodone [From Vicodin] Allergy (Verified 05/30/18 11:29) Unknown latex Allergy (Verified 05/30/18 11:29) Rash Penicillins Allergy (Verified 05/30/18 11:29) Unknown Medications Vits [Prenatabs FA] 1 tab PO DAILY 11/23/17 [History Confirmed 05/30/18] Ferrous Sulfate 325 mg PO DAILY 04/04/18 [History Confirmed 05/30/18] Last Menstral Period: 09/28/17 Zika: Zika virus screening: Negative : No PFSH PFSH Surgical History History of placement of ear tubes (Acute) History of tonsillectomy (Acute) Hx of cholecystectomy (Acute) Social History Smoking Status: Never smoker alcohol intake: never substance use type: does not use caffeine: Yes seatbelt use: always do you feel safe at home: Yes additional social history: Kristopher Pregancy History 1 Elective abortions Hx Para Spontaneous abortions HPI 38 WEEK OB: Details: VIKTORIA REYES is a 27 year old who presents for routine OB visit. OB Visit GARY Calculator Estimated Delivery Date 06/11/18 Based on Ultrasound Date 10/29/17 Current WG 38w 2d Number 1 Expected Delivery Route/Plan Specific Issue/Plans flu vaccine: declines tdap vaccine: considering rhogam: NA LARC form signed: declines labor support person: Kristopher pain management: epidural cut cord/dad catch: cord only : yes PP control planned: [] special requests: [] Initial Weight: 345 lb Date Weight BP Urine PrFHR FuHt Pres MoCTX DilationFetal StVisit NoProviderComments E ot v te [place] G Effac lucose ed Visit Notes Visit Date: 05/30/18 discussed with patient MFM recommendation for delivery at 39-40 weeks. weekly bpp. Marion Guardado MD on 05/30/18 Visit Date: 05/23/18 no vb lof good fm no regular ctx. measuring 84%ile. Marion Guardado MD on 05/23/18 Visit Date: 05/16/18 has bpp on . no vb lof good fm no regular ctx. growth us on Marion Guardado MD on 05/16/18 Visit Date: 05/05/18 no VB, LOF. Good FM. Had MFM BPP today. DO Sevilla on 05/05/18 Visit Date: 04/21/18 no VB, lof. Doing well DO Sevilla on 04/21/18 Visit Date: 04/07/18 no vb lof good fm nro eguarl ctx Marion Guardado MD on 04/07/18 Visit Date: 03/21/18 no VB, LOF. Has had issues with light headedness. Had discussed with EDIL last time. DO Sevilla on 03/21/18 Visit Date: 02/21/18 no vb cramping good fm Marion Guardado MD on 02/21/18 Visit Date: 01/17/18 no vb crmaping Marion Guardado MD on 01/19/18 no vb no regular cramping- has ultrasound next. Marion Guardado MD on 01/17/18 ACOG First Trimester First Trimester: Discussed Diagnostics Diagnostics Labs Hct 30.6 % (37-47) L 03/21/18 Hgb 10.0 g/dl (12.0-15.0) L 03/21/18 Glucose 1 Hr 50 gm 93 mg/dL (70-140) 03/21/18 Group B Strep DNA Cancelled 05/16/18 Details: HIV: Urine Culture: Sequential Screen: NIPT Screen: Assessment AND Plan Problems 1. Anemia during O99.019 To start iron 2. 38 weeks gestation of Z3A.38 genetic, ntd and carrier screening declined. Growth US-normal. Growth US every 4 weeks with weekly BPP. Weekly NST; normal BPP 04/28/18 3. Encounter for supervision of other normal in third trimester Z34.83 PRR GARY 06/11/18 boy- Junaid Kristopher 4. Obesity affecting in third trimester O99.213 1st trimester glucola normal and plan weekly bpps with MFM, growth q4 weeks after 32 weeks, MFM recommends delivery at 39-40 weeks 5. ASCUS favor benign 2018 ascus hpv neg Plan movement and labor precautions reviewed. ACOG trimester education reviewed and updated. see problem list details for updated plan management information and see below for orders placed at this visit. [place] appropriate handout given. Orders Orders: Coding Level of Care Code OB Routine Diagnoses Anemia during O99.019 38 weeks gestation of Z3A.38 Weeks of gestation: 38 weeks Encounter for supervision of other normal in third trimester Z34.83 Normal : other normal Trimester: third trimester Obesity affecting in third trimester O99.213 Trimester: third trimester ASCUS favor benign 05/30/18 1319 <Electronically signed by Marion Guardado MD> Date Marion Guardado MD Cosigner Signature: Date (if applicable) CC: GATE GUARD OFFICE VISIT Observed: 05/23/2018 Status: F Source: [place] REPORT 11:13 AM [facility] REPOSITORY [facility] [address] [place] [address] OFFICE VISIT Date of Service: 05/23/18 MR#: [id number] Acct: [id number] Name: VIKTORIA REYES Rep #: [id number] : 1990 Provider: Marion Guardado MD Age/Sex: 27/F Location: [facility] [place] Status: Signed Intake Vital Signs05/23/18 Height 5 ft 4 in 05/23/18 Weight: 373 lb 05/23/18 Body Mass Index (BMI) 64.0 05/23/18 Blood Pressure 124/82 H 04/21/18 Body Mass Index (BMI) 62.7 Intake Visit Reasons: 37 WEEK OB Chief Complaint: est ob Drug Counselor Required: No Is patient in pain?: No Allergies codeine Allergy (Unknown, Verified 05/16/18 10:19) Unknown acetaminophen [From Vicodin] Allergy (Verified 05/16/18 10:19) Unknown hydrocodone [From Vicodin] Allergy (Verified 05/16/18 10:19) Unknown latex Allergy (Verified 05/16/18 10:19) Rash Penicillins Allergy (Verified 05/16/18 10:19) Unknown Medications Vits [Prenatabs FA] 1 tab PO DAILY 11/23/17 [History Confirmed 05/23/18] Ferrous Sulfate 325 mg PO DAILY 04/04/18 [History Confirmed 05/23/18] Last Menstral Period: 09/28/17 Zika: Zika virus screening: Negative : No PFSH PFSH Surgical History History of placement of ear tubes (Acute) History of tonsillectomy (Acute) Hx of cholecystectomy (Acute) Social History Smoking Status: Never smoker alcohol intake: never substance use type: does not use caffeine: Yes seatbelt use: always do you feel safe at home: Yes additional social history: Kristopher Pregancy History 1 Elective abortions Hx Para Spontaneous abortions HPI 37 WEEK OB: Details: VIKTORIA REYES is a 27 year old who presents for routine OB visit. OB Visit GARY Calculator Estimated Delivery Date 06/11/18 Based on Ultrasound Date 10/29/17 Current WG 37w 2d Number 1 Expected Delivery Route/Plan Specific Issue/Plans flu vaccine: declines tdap vaccine: considering rhogam: NA LARC form signed: declines labor support person: Kristopher pain management: epidural cut cord/dad catch: cord only : yes PP control planned: [] special requests: [] Initial Weight: 345 lb Date Weight BP Urine PrFHR FuHt Pres MoCTX DilationFetal StVisit NoProviderComments E ot v te [place] G Effac lucose ed Visit Notes Visit Date: 05/23/18 no vb lof good fm no regular ctx. measuring 84%ile. Marion Guardado MD on 05/23/18 Visit Date: 05/16/18 has bpp on . no vb lof good fm no regular ctx. growth us on Marion Guardado MD on 05/16/18 Visit Date: 05/05/18 no VB, LOF. Good FM. Had MFM BPP today. DO Sevilla on 05/05/18 Visit Date: 04/21/18 no VB, lof. Doing well DO Sevilla on 04/21/18 Visit Date: 04/07/18 no vb lof good fm nro eguarl ctx Marion Guardado MD on 04/07/18 Visit Date: 03/21/18 no VB, LOF. Has had issues with light headedness. Had discussed with EDIL last time. DO Sevilla on 03/21/18 Visit Date: 02/21/18 no vb cramping good fm Marion Guardado MD on 02/21/18 Visit Date: 01/17/18 no vb crmaping Marion Guardado MD on 01/19/18 no vb no regular cramping- has ultrasound next. Marion Guardado MD on 01/17/18 ACOG First Trimester First Trimester: Discussed Diagnostics Diagnostics Labs Hct 30.6 % (37-47) L 03/21/18 Hgb 10.0 g/dl (12.0-15.0) L 03/21/18 Glucose 1 Hr 50 gm 93 mg/dL (70-140) 03/21/18 Group B Strep DNA Cancelled 05/16/18 Details: HIV: Urine Culture: Sequential Screen: NIPT Screen: Results [id number] Office Urine Glucose Negative Last Edit by Tayler Piña on 05/23/18 10:47 Office Urine Protein Trace Last Edit by Tayler Piña on 05/23/18 10:47 Assessment AND Plan Problems 1. Anemia during O99.019 To start iron 2. 37 weeks gestation of Z3A.37 genetic, ntd and carrier screening declined. Growth US-normal. Growth US every 4 weeks with weekly BPP. Weekly NST; normal BPP 04/28/18 3. Encounter for supervision of other normal in third trimester Z34.83 PRR GARY 06/11/18 boy- Junaid Kristopher 4. Obesity affecting in third trimester O99.213 1st trimester glucola normal and plan weekly bpps with MFM, growth q4 weeks after 32 weeks 5. ASCUS favor benign 2018 ascus hpv neg Plan movement and labor precautions reviewed. ACOG trimester education reviewed and updated. see problem list details for updated plan management information and see below for orders placed at this visit. [place] appropriate handout given. Orders Orders: Coding Level of Care Code OB Routine Diagnoses Anemia during O99.019 37 weeks gestation of Z3A.37 Weeks of gestation: 37 weeks Encounter for supervision of other normal in third trimester Z34.83 Normal : other normal Trimester: third trimester Obesity affecting in third trimester O99.213 Trimester: third trimester ASCUS favor benign 05/23/18 1113 <Electronically signed by Marion Guardado MD> Date Marion Guardado MD Cosigner Signature: Date (if applicable) CC: Observed: 05/16/2018 Status: F Source: [place] LOMBARDI, GROUP B 1:08 PM [facility]REPT[facility]CCUS REPOSITORY LIZBETH Culture Group B Beta Streptococcus is not isolated. Performed By: #### M100.1800 #### [facility] [address] [place], [address] GATE GUARD OFFICE VISIT Observed: 05/16/2018 Status: F Source: [place] REPORT 10:45 AM [facility] REPOSITORY [facility] [address] [place] [address] OFFICE VISIT Date of Service: 05/16/18 MR#: [id number] Acct: [id number] Name: VIKTORIA REYES Rep #: [id number] : 1990 Provider: Marion Guardado MD Age/Sex: 27/F Location: [facility] [place] Status: Signed Intake Vital Signs05/16/18 Body Mass Index (BMI) 62.7 05/16/18 Height 5 ft 4 in 05/16/18 Weight: 370 lb 05/16/18 Body Mass Index (BMI) 63.5 05/16/18 Blood Pressure 118/80 Intake Visit Reasons: 36 WEEKS Chief Complaint: est ob Drug Counselor Required: No Is patient in pain?: No Allergies codeine Allergy (Unknown, Verified 05/16/18 10:19) Unknown acetaminophen [From Vicodin] Allergy (Verified 05/16/18 10:19) Unknown hydrocodone [From Vicodin] Allergy (Verified 05/16/18 10:19) Unknown latex Allergy (Verified 05/16/18 10:19) Rash Penicillins Allergy (Verified 05/16/18 10:19) Unknown Medications Vits [Prenatabs FA] 1 tab PO DAILY 11/23/17 [History Confirmed 05/05/18] Ferrous Sulfate 325 mg PO DAILY 04/04/18 [History Confirmed 05/05/18] Last Menstral Period: 09/28/17 Zika: Zika virus screening: Negative : No PFSH PFSH Surgical History History of placement of ear tubes (Acute) History of tonsillectomy (Acute) Hx of cholecystectomy (Acute) Social History Smoking Status: Never smoker alcohol intake: never substance use type: does not use caffeine: Yes seatbelt use: always do you feel safe at home: Yes additional social history: Kristopher Pregancy History 1 Elective abortions Hx Para Spontaneous abortions HPI 36 WEEKS: Details: VIKTORIA REYES is a 27 year old who presents for routine OB visit. unable to give urine specimen for 2 dip OB Visit GARY Calculator Estimated Delivery Date 06/11/18 Based on Ultrasound Date 10/29/17 Current WG 36w 2d Number 1 Expected Delivery Route/Plan Specific Issue/Plans flu vaccine: declines tdap vaccine: considering rhogam: NA LARC form signed: declines labor support person: Kristopher pain management: epidural cut cord/dad catch: cord only : yes PP control planned: [] special requests: [] Initial Weight: 345 lb Date Weight BP Urine PrFHR FuHt Pres MoCTX DilationFetal StVisit NoProviderComments E ot v te GA G Effac lucose ed Visit Notes Visit Date: 05/16/18 has bpp on . no vb lof good fm no regular ctx. growth us on Marion Guardado MD on 05/16/18 Visit Date: 05/05/18 no VB, LOF. Good FM. Had MFM BPP today. GABE SevillaC on 05/05/18 Visit Date: 04/21/18 no VB, lof. Doing well DO Sevilla on 04/21/18 Visit Date: 04/07/18 no vb lof good fm nro eguarl ctx Marion Guardado MD on 04/07/18 Visit Date: 03/21/18 no VB, LOF. Has had issues with light headedness. Had discussed with EDIL last time. DO Sevilla on 03/21/18 Visit Date: 02/21/18 no vb cramping good fm Marion Guardado MD on 02/21/18 Visit Date: 01/17/18 no vb crmaping Marion Guardado MD on 01/19/18 no vb no regular cramping- has ultrasound next. Marion Guardado MD on 01/17/18 ACOG First Trimester First Trimester: Discussed Diagnostics Diagnostics Labs Hct 30.6 % (37-47) L 03/21/18 Hgb 10.0 g/dl (12.0-15.0) L 03/21/18 Obstetrics Ultrasound 01/17/18 Glucose 1 Hr 50 gm 93 mg/dL (70-140) 03/21/18 Details: HIV: Urine Culture: Sequential Screen: NIPT Screen: Assessment AND Plan Problems 1. Anemia during O99.019 To start iron 2. Obesity affecting in third trimester O99.213 1st trimester glucola normal and plan weekly bpps with MFM, growth q4 weeks after 32 weeks 3. 36 weeks gestation of Z3A.36 genetic, ntd and carrier screening declined. Growth US-normal. Growth US every 4 weeks with weekly BPP. 4. ASCUS favor benign 2018 ascus hpv neg 5. Encounter for supervision of other normal in third trimester Z34.83 PRR GARY 06/11/18 boy- Junaid Kristopher Plan movement and labor precautions reviewed. ACOG trimester education reviewed and updated. see problem list details for updated plan management information and see below for orders placed at this visit. GA appropriate handout given. Orders Orders: Coding Level of Care Code OB Routine Diagnoses Anemia during O99.019 Obesity affecting in third trimester O99.213 Trimester: third trimester 36 weeks gestation of Z3A.36 Weeks of gestation: 36 weeks ASCUS favor benign Encounter for supervision of other normal in third trimester Z34.83 Normal : other normal Trimester: third trimester 05/16/18 1045 <Electronically signed by Marion Guardado MD> Date Marion Guardado MD [facility] Signature: Date (if applicable) CC: GATE GUARD OFFICE VISIT Observed: 05/05/2018 Status: F Source: KAY REPORT 11:45 AM [facility] REPOSITORY [facility] [address] [place] [address] OFFICE VISIT Date of Service: 05/05/18 MR#: [id number] Acct: [id number] Name: VIKTORIA REYES Rep #: [id number] : 1990 Provider: JAVAN Mahoney Age/Sex: 27/F Location: [facility] [place] Status: Signed Intake Vital Signs05/05/18 Body Mass Index (BMI) 62.7 05/05/18 Weight: 371 lb 05/05/18 Blood Pressure 126/84 H Intake Visit Reasons: 34 WEEKS Chief Complaint: Est OB Accompanied by: Self Is patient in pain?: No Allergies codeine Allergy (Unknown, Verified 05/05/18 11:30) Unknown acetaminophen [From Vicodin] Allergy (Verified 05/05/18 11:30) Unknown hydrocodone [From Vicodin] Allergy (Verified 05/05/18 11:30) Unknown latex Allergy (Verified 05/05/18 11:30) Rash Penicillins Allergy (Verified 05/05/18 11:30) Unknown Medications Vits [Prenatabs FA] 1 tab PO DAILY 11/23/17 [History Confirmed 05/05/18] Ferrous Sulfate 325 mg PO DAILY 04/04/18 [History Confirmed 05/05/18] Ranitidine [Zantac] 150 mg PO DAILY 04/04/18 [History Confirmed 05/05/18] Last Menstral Period: 09/28/17 Zika: Zika virus screening: Negative : No PFSH PFSH Surgical History History of placement of ear tubes (Acute) History of tonsillectomy (Acute) Hx of cholecystectomy (Acute) Social History Smoking Status: Never smoker alcohol intake: never substance use type: does not use caffeine: Yes seatbelt use: always do you feel safe at home: Yes additional social history: Kristopher Pregancy History 1 Elective abortions Hx Para Spontaneous abortions HPI 34 WEEKS: Details: VIKTORIA REYES is a 27 year old who presents for routine OB visit. OB Visit GARY Calculator Estimated Delivery Date 06/11/18 Based on Ultrasound Date 10/29/17 Current WG 34w 5d Number 1 Expected Delivery Route/Plan Specific Issue/Plans flu vaccine: declines tdap vaccine: considering rhogam: NA LARC form signed: declines labor support person: Kristopher pain management: epidural cut cord/dad catch: cord only : yes PP control planned: [] special requests: [] Initial Weight: 345 lb Date Weight BP Urine PrFHR FuHt Pres MoCTX DilationFetal StVisit NoProviderComments E ot v te GA G Effac lucose ed Visit Notes Visit Date: 05/05/18 no VB, LOF. Good FM. Had MFM BPP today. GABE SevillaC on 05/05/18 Visit Date: 04/21/18 no VB, lof. Doing well DO Sevilla on 04/21/18 Visit Date: 04/07/18 no vb lof good fm nro eguarl ctx Marion Guardado MD on 04/07/18 Visit Date: 03/21/18 no VB, LOF. Has had issues with light headedness. Had discussed with EDIL last time. DO Sevilla on 03/21/18 Visit Date: 02/21/18 no vb cramping good fm Marion Guardado MD on 02/21/18 Visit Date: 01/17/18 no vb crmaping Marion Guardado MD on 01/19/18 no vb no regular cramping- has ultrasound next. Marion Guardado MD on 01/17/18 ACOG First Trimester First Trimester: Discussed Diagnostics Diagnostics Labs Hct 30.6 % (37-47) L 03/21/18 Hgb 10.0 g/dl (12.0-15.0) L 03/21/18 Obstetrics Ultrasound 01/17/18 Glucose 1 Hr 50 gm 93 mg/dL (70-140) 03/21/18 Details: HIV: Urine Culture: Sequential Screen: NIPT Screen: ROS Const Reports system reviewed and no additional complaints, except as docu GI Denies nausea, Denies vomiting, Denies abdominal pain Exam Const General: cooperative Nutritional Appearance: well nourished GI Palpation: soft, nontender, other (gravid) Assessment AND Plan Problems 1. Encounter for supervision of other normal in third trimester Z34.83 PRR GARY 06/11/18 boy- Junaid Kristopher 2. 34 weeks gestation of Z3A.34 genetic, ntd and carrier screening declined. Growth US-normal. Growth US every 4 weeks with weekly BPP. 3. Obesity affecting in third trimester O99.213 1st trimester glucola normal and plan weekly bpps with MFM, growth q4 weeks after 32 weeks 4. Anemia during O99.019 To start iron 5. ASCUS favor benign 2017 ascus hpv neg Plan Orders placed: none Weekly BPP with MFM and has 4 week growth US scheduled Reviewed of labor precautions, movement/kick counts ACOG trimester education reviewed and updated See problem list details for updated plan of care Gestational age appropriate handout given RTO: 2 weeks Orders Orders: Coding Level of Care Code Off vis,est,level 3 Diagnoses Encounter for supervision of other normal in third trimester Z34.83 Normal : other normal Trimester: third trimester 34 weeks gestation of Z3A.34 Weeks of gestation: 34 weeks Obesity affecting in third trimester O99.213 Trimester: third trimester Anemia during O99.019 ASCUS favor benign 05/05/18 1145 <Electronically signed by Renee LEI> Date Renee LEI Cosigner Signature: Date (if applicable) CC: GATE GUARD OFFICE VISIT Observed: 04/21/2018 Status: F Source: [place] REPORT 9:20 AM [facility] REPOSITORY [facility] [address] [place] [address] OFFICE VISIT Date of Service: 04/21/18 MR#: [id number] Acct: [id number] Name: VIKTORIA REYES Rep #: [id number] : 1990 Provider: JAVAN Mahoney Age/Sex: 27/F Location: [facility] [place] Status: Signed Intake Vital Signs04/21/18 Height 5 ft 4 in 04/21/18 Weight: 369 lb 04/21/18 Body Mass Index (BMI) 63.3 04/21/18 Blood Pressure 120/78 Intake Visit Reasons: 32 WEEKS Chief Complaint: est ob Drug Counselor Required: No Is patient in pain?: No Allergies codeine Allergy (Unknown, Verified 04/21/18 08:43) Unknown acetaminophen [From Vicodin] Allergy (Verified 04/21/18 08:43) Unknown hydrocodone [From Vicodin] Allergy (Verified 04/21/18 08:43) Unknown latex Allergy (Verified 04/21/18 08:43) Rash Penicillins Allergy (Verified 04/21/18 08:43) Unknown Medications Vits [Prenatabs FA] 1 tab PO DAILY 11/23/17 [History Confirmed 04/21/18] Ferrous Sulfate 325 mg PO DAILY 04/04/18 [History Confirmed 04/21/18] Ranitidine [Zantac] 150 mg PO DAILY 04/04/18 [History Confirmed 04/21/18] Last Menstral Period: 01/03/18 Zika: Zika virus screening: Negative : No PFSH PFSH Surgical History History of placement of ear tubes (Acute) History of tonsillectomy (Acute) Hx of cholecystectomy (Acute) Social History Smoking Status: Never smoker alcohol intake: never substance use type: does not use caffeine: Yes seatbelt use: always do you feel safe at home: Yes additional social history: Kristopher Pregancy History 1 Elective abortions Hx Para Spontaneous abortions HPI 32 WEEKS: Details: VIKTORIA REYES is a 27 year old who presents for routine OB visit. unable to give 2 dip urine specimen OB Visit GARY Calculator Estimated Delivery Date 06/11/18 Based on Ultrasound Date 10/29/17 Current WG 32w 5d Number 1 Expected Delivery Route/Plan Specific Issue/Plans flu vaccine: declines tdap vaccine: considering rhogam: NA LARC form signed: declines labor support person: Kristopher pain management: epidural cut cord/dad catch: cord only : yes PP control planned: [] special requests: [] Initial Weight: 345 lb Date Weight BP Urine PFHR FuHt Pres MCTX DilatioFetal SVisit NProvideComment rot ov n t ote r s EGA Ef Gluco faced se 01/17/1350 lb 134/72 150 no vb n 8 4 oz (+ o regul 195 lb 4 ar cram w 2d oz) ping- h as ultr asound next. no vb crmapin g Visit Notes Visit Date: 04/21/18 no VB, lof. Doing well GABE SevillaC on 04/21/18 Visit Date: 04/07/18 no vb lof good fm nro eguarl ctx Marion Guardado MD on 04/07/18 Visit Date: 03/21/18 no VB, LOF. Has had issues with light headedness. Had discussed with EDIL last time. DO Sevilla on 03/21/18 Visit Date: 02/21/18 no vb cramping good fm Marion Guardado MD on 02/21/18 Visit Date: 01/17/18 no vb crmaping Marion Guardado MD on 01/19/18 no vb no regular cramping- has ultrasound next. Marion Guardado MD on 01/17/18 Diagnostics Diagnostics Labs Hct 30.6 % (37-47) L 03/21/18 Hgb 10.0 g/dl (12.0-15.0) L 03/21/18 Obstetrics Ultrasound 01/17/18 Glucose 1 Hr 50 gm 93 mg/dL (70-140) 03/21/18 Details: HIV: Urine Culture: Sequential Screen: NIPT Screen: ROS Const Reports system reviewed and no additional complaints, except as docu GI Denies nausea, Denies vomiting, Denies abdominal pain Exam Const General: cooperative Nutritional Appearance: well nourished GI Palpation: soft, nontender, other (gravid) Assessment AND Plan Problems 1. Encounter for supervision of other normal in third trimester Z34.83 PRR GARY 2 boy- Junaid Kristopher 2. 32 weeks gestation of Z3A.32 genetic, ntd and carrier screening declined. Growth US-normal. Growth US every 4 weeks with weekly BPP. 3. Obesity affecting in third trimester O99.213 1st trimester glucola normal and plan weekly bpps with MFM, growth q4 weeks after 32 weeks 4. Anemia during O99.019 To start iron 5. ASCUS favor benign 2018 ascus hpv neg Plan Orders placed: none. 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 Reviewed of labor precautions, movement/kick counts ACOG trimester education reviewed and updated See problem list details for updated plan of care Gestational age appropriate handout given RTO: 2 weeks Orders Orders: Coding Level of Care Code Off vis,est,level 3 Diagnoses Encounter for supervision of other normal in third trimester Z34.83 Normal : other normal Trimester: third trimester 32 weeks gestation of Z3A.32 Weeks of gestation: 32 weeks Obesity affecting in third trimester O99.213 Trimester: third trimester Anemia during O99.019 ASCUS favor benign 04/21/18 0920 <Electronically signed by Renee LEI> Date Renee BERNALC Cosigner Signature: Date (if applicable) CC: GATE GUARD OFFICE VISIT Observed: 04/07/2018 Status: F Source: KAY REPORT 5:05 PM [facility] [address] [place] [address] OFFICE VISIT Date of Service: 04/07/18 MR#: [id number] Acct: [id number] Name: VIKTORIA REYES Rep #: [id number] : 1990 Provider: Marion Guardado MD Age/Sex: 27/F Location: [facility] [place] Status: Signed Intake Vital Signs04/07/18 Body Mass Index (BMI) 62.7 04/07/18 Height 5 ft 4 in Intake Visit Reasons: 30 WEEKS Chief Complaint: est ob Drug Counselor Required: No Is patient in pain?: No Allergies codeine Allergy (Unknown, Verified 04/07/18 16:31) Unknown acetaminophen [From Vicodin] Allergy (Verified 04/07/18 16:31) Unknown hydrocodone [From Vicodin] Allergy (Verified 04/07/18 16:31) Unknown latex Allergy (Verified 04/07/18 16:31) Rash Penicillins Allergy (Verified 04/07/18 16:31) Unknown Medications Vits [Prenatabs FA] 1 tab PO DAILY 11/23/17 [History Confirmed 04/04/18] Ferrous Sulfate 325 mg PO DAILY 04/04/18 [History Confirmed 04/04/18] Ranitidine [Zantac] 150 mg PO DAILY 04/04/18 [History Confirmed 04/04/18] Last Menstral Period: 09/28/17 Zika: Zika virus screening: Negative : No PFSH PFSH Surgical History History of placement of ear tubes (Acute) History of tonsillectomy (Acute) Hx of cholecystectomy (Acute) Social History Smoking Status: Never smoker alcohol intake: never substance use type: does not use caffeine: Yes seatbelt use: always do you feel safe at home: Yes additional social history: Kristopher Pregancy History 1 Elective abortions Hx Para Spontaneous abortions HPI 30 WEEKS: Details: VIKTORIA RYEES is a 27 year old who presents for routine OB visit. OB Visit GARY Calculator Estimated Delivery Date 06/11/18 Based on Ultrasound Date 10/29/17 Current WG 30w 5d Number 1 Expected Delivery Route/Plan Specific Issue/Plans flu vaccine: declines tdap vaccine: considering rhogam: NA LARC form signed: declines labor support person: Kristopher pain management: epidural cut cord/dad catch: cord only : yes PP control planned: [] special requests: [] Initial Weight: 345 lb Date Weight BP Urine PrFHR FuHt Pres MoCTX DilationFetal StVisit NoProviderComments E ot v te GA G Effac lucose ed Visit Notes Visit Date: 04/07/18 no vb lof good fm nro eguarl ctx Marion Guardado MD on 04/07/18 Visit Date: 03/21/18 no VB, LOF. Has had issues with light headedness. Had discussed with EDIL last time. Renee Mahoney NP-Yuval on 03/21/18 Visit Date: 02/21/18 no vb cramping good fm Marion Guardado MD on 02/21/18 Visit Date: 01/17/18 no vb crmaping Marion Guardado MD on 01/19/18 no vb no regular cramping- has ultrasound next. Marion Guardado MD on 01/17/18 ACOG First Trimester First Trimester: Discussed Diagnostics Diagnostics Labs Blood Type O POSITIVE 11/23/17 Hct 30.6 % (37-47) L 03/21/18 Hgb 10.0 g/dl (12.0-15.0) L 03/21/18 Obstetrics Ultrasound 01/17/18 Glucose 1 Hr 50 gm 93 mg/dL (70-140) 03/21/18 Details: HIV: Urine Culture: Sequential Screen: NIPT Screen: Results [id number] Office Urine Glucose Negative Last Edit by Tayler Piña on 04/07/18 16:41 Office Urine Protein Negative Last Edit by Tayler Piña on 04/07/18 16:41 Assessment AND Plan Problems 1. Anemia during O99.019 To start iron 2. 30 weeks gestation of Z3A.30 genetic, ntd and carrier screening declined. Growth US-normal. Growth US every 4 weeks with weekly BPP. 3. Encounter for supervision of other normal in third trimester Z34.83 PRR GARY 06/11/18 yennifer- Junaid Kristopher 4. Obesity affecting in third trimester O99.213 1st trimester glucola normal and plan weekly bpps with MFM, growth q4 weeks after 32 weeks 5. ASCUS favor benign 2018 ascus hpv neg Plan movement and labor precautions reviewed. ACOG trimester education reviewed and updated. see problem list details for updated plan management information and see below for orders placed at this visit. GA appropriate handout given. Orders Orders: Coding Level of Care Code OB Routine Diagnoses Anemia during O99.019 30 weeks gestation of Z3A.30 Weeks of gestation: 30 weeks Encounter for supervision of other normal in third trimester Z34.83 Normal : other normal Trimester: third trimester Obesity affecting in third trimester O99.213 Trimester: third trimester ASCUS favor benign 04/07/18 1705 <Electronically signed by Marion Guardado MD> Date Marion Plasenciaignmeghan Signature: Date (if applicable) CC: GATE GUARD OFFICE VISIT Observed: 03/21/2018 Status: F Source: KAY REPORT 4:33 PM [facility] REPOSITORY [facility] [address] [place] [address] OFFICE VISIT Date of Service: 03/21/18 MR#: [id number] Acct: [id number] Name: VIKTORIA REYES Rep #: [id number] : 1990 Provider: JAVAN Mahoney Age/Sex: 27/F Location: [facility] [place] Status: Signed Intake Vital Signs03/21/18 Height 5 ft 4 in 03/21/18 Weight: 361 lb 8 oz 03/21/18 Body Mass Index (BMI) 62.0 03/21/18 Blood Pressure 130/64 H Intake Visit Reasons: est ob 28 weeks GLUCOLA Chief Complaint: est ob Drug Counselor Required: No Is patient in pain?: No Allergies codeine Allergy (Unknown, Verified 03/21/18 15:15) Unknown acetaminophen [From Vicodin] Allergy (Verified 03/21/18 15:15) Unknown hydrocodone [From Vicodin] Allergy (Verified 03/21/18 15:15) Unknown latex Allergy (Verified 03/21/18 15:15) Rash Penicillins Allergy (Verified 03/21/18 15:15) Unknown Medications Vits [Prenatabs FA] 1 tab PO DAILY 11/23/17 [History Confirmed 03/21/18] ranitidine 150 mg tablet 150 mg PO QHS #60 tab 02/21/18 [Rx Confirmed 03/21/18] Last Menstral Period: 09/28/17 Zika: Zika virus screening: Negative : No PFSH PFSH Medical History cholecystctomy (Acute) tubes in ears (Acute) Surgical History toncillectomy (Acute) Social History Smoking Status: Never smoker alcohol intake: never substance use type: does not use caffeine: Yes seatbelt use: always do you feel safe at home: Yes additional social history: Kristopher Pregancy History 1 Elective abortions Hx Para Spontaneous abortions HPI est ob 28 weeks GLUCOLA: Details: VIKTORIA REYES is a 27 year old who presents for routine OB visit. OB Visit GARY Calculator Estimated Delivery Date 06/11/18 Based on Ultrasound Date 10/29/17 Current WG 28w 2d Number 1 Expected Delivery Route/Plan Specific Issue/Plans flu vaccine: declines tdap vaccine: considering rhogam: NA LARC form signed: declines labor support person: Kristopher pain management: epidural cut cord/dad catch: cord only : yes PP control planned: [] special requests: [] Initial Weight: 345 lb Date Weight BP Urine PrFHR FuHt Pres MoCTX DilationFetal StVisit NoProviderComments E ot v te GA G Effac lucose ed Visit Notes Visit Date: 03/21/18 no VB, LOF. Has had issues with light headedness. Had discussed with EDIL last time. Renee Mahoney NP-Yuval on 03/21/18 Visit Date: 02/21/18 no vb cramping good fm Marion Guardado MD on 02/21/18 Visit Date: 01/17/18 no vb crmaping Marion Guardado MD on 01/19/18 no vb no regular cramping- has ultrasound next. Marion Guardado MD on 01/17/18 ACOG First Trimester First Trimester: Discussed Diagnostics Diagnostics Labs Blood Type O POSITIVE 11/23/17 Antibody Screen NEGATIVE 10/25/17 Hct Pending 03/21/18 Hgb Pending 03/21/18 Obstetrics Ultrasound 01/17/18 Rubella IgG Antibody 15.9 IU/mL 10/25/17 RPR NONREACTIVE (NONREACTIVE) 10/25/17 Hep Bs Antigen Negative (Negative) 10/25/17 Chlam trachomat DNA PCR Negative (Negative) 10/12/17 N.gonorrhoeae DNA (PCR) Negative (Negative) 10/12/17 Glucose 1 Hr 50 gm Pending 03/21/18 Details: HIV: Urine Culture: Sequential Screen: NIPT Screen: OnTheList Reports system reviewed and no additional complaints, except as docu GI Denies nausea, Denies vomiting, Denies abdominal pain Exam Const General: cooperative Nutritional Appearance: well nourished GI Palpation: soft, nontender, other (gravid) Results [id number] Office Urine Glucose Negative Last Edit by Tayler Piña on 03/21/18 15:30 Office Urine Protein Negative Last Edit by Tayler Piña on 03/21/18 15:30 Assessment AND Plan Problems 1. Encounter for supervision of other normal in second trimester Z34.82 PRR GARY 06/11/18? Kristopher 2. 28 weeks gestation of Z3A.28 considering quad screen- checking insurance. carrier screening declined. Growth US-normal but sub-optimal visualization. Repeat 4 weeks. 3. Obesity affecting in second trimester O99.212 1st trimester glucola and plan weekly nsts growth q4 weeks after 32 weeks 4. ASCUS favor benign 2018 ascus hpv neg 5. Dizziness of unknown cause R42 Plan Orders placed: 28 wk labs Declines flu. Considering tdap next visit Is schedule with nutritional services, drop in glucose may be cause of dizziness. Reviewed diet intake, small frequent meals, low sugar, high protein. Avoid carb loading Avoid standing/sitting long periods of time. Reviewed of labor precautions, movement/kick counts ACOG trimester education reviewed and updated See problem list details for updated plan of care Gestational age appropriate handout given RTO: 2 weeks Orders Orders: Coding Level of Care Code Off vis,est,level 3 Diagnoses Encounter for supervision of other normal in second trimester Z34.82 Normal : other normal Trimester: second trimester 28 weeks gestation of Z3A.28 Weeks of gestation: 28 weeks Obesity affecting in second trimester O99.212 Trimester: second trimester ASCUS favor benign Dizziness of unknown cause R42 03/21/18 1633 <Electronically signed by Renee LEI> Date Renee BERNALC Cosigner Signature: Date (if applicable) CC: GLUCOSE CHALLENGE GEST Collected: 03/21/2018 Status: F Source: KAY 1H 50G 4:20 PM [facility] REPOSITORY TYPE CODE TESTS RESULT OUT OF RANGE REFERENCE UNITS LAB L501.0250 70-140 mg/dL Normal GLU GEST 93 50g 1H Performed By: #### L501.0250 #### [facility] [address] [place], [place], [address] CBC W/DIFF, AUTOMATED Collected: 03/21/2018 Status: F Source: KAY 4:20 PM [facility] REPOSITORY TYPE CODE TESTS RESULT OUT OF RANGE REFERENCE UNITS LAB L100.1000 4.4-11.0 K/mm3 Normal WBC 11.0 LAB L100.1200 4.2-5.4 M/mm3 Low RBC 3.44 LAB L100.1300 12.0-15.0 g/dl Low HGB 10.0 LAB L100.1400 37-47 % Low HCT 30.6 LAB L100.1500 81-99 fL Normal MCV 89.0 LAB L100.1600 27.0-32.0 pg Normal MCH 29.1 LAB L100.1700 32-36 g/gl Normal MCHC 32.7 LAB L100.1810 11.6-14.6 % High RDW CV 15.8 LAB L100.1820 35.1-43.9 fl High RDW SD 49.3 LAB L100.1900 150-450 K/mm3 Normal PLT 239 LAB L100.2000 6.2-12.0 fl Normal MPV 9.6 LAB L100.2100 47-70 % High NEUT% 72.4 LAB L100.2200 19-41 % Normal LY% 19.1 LAB L100.2300 0-10 % Normal MONO% 6.1 LAB L100.2400 0-5 % Normal EO% 1.5 LAB L100.2500 0-1 % Normal BASO% 0.2 LAB L100.2550 0.0-0.9 % Normal IM GRAN % 0.700 Result Comment: IG% - Immature Granulocytes (promyelocytes, myelocytes and metamyelocytes) > 1% indicates that a LEFT SHIFT is Present. LAB L100.2620 2.0-7.7 X10 3/uL High Absolute Neut 7.9 LAB L100.2720 0.83-4.51 X10 3/ul Normal Absolute Lymph 2.09 Performed By: #### L100.0100 #### [facility] [address] [place], [address] GATE GUARD OFFICE VISIT Observed: 02/21/2018 Status: F Source: KAY REPORT 5:04 PM [facility] REPOSITORY [facility] [address] [place] [address] OFFICE VISIT Date of Service: 02/21/18 MR#: [id number] Acct: [id number] Name: VIKTORIA REYES Rep #: [id number] : 1990 Provider: Marion Guardado MD Age/Sex: 27/F Location: [facility] [place] Status: Signed Intake Vital Signs02/21/18 Height 5 ft 4 in 02/21/18 Weight: 359 lb 8 oz 02/21/18 Body Mass Index (BMI) 61.7 02/21/18 Blood Pressure 124/74 H H Intake Visit Reasons: est ob 24 weeks Drug Counselor Required: No Is patient in pain?: No Allergies codeine Allergy (Unknown, Verified 02/21/18 16:53) Unknown acetaminophen [From Vicodin] Allergy (Verified 02/21/18 16:53) Unknown hydrocodone [From Vicodin] Allergy (Verified 02/21/18 16:53) Unknown latex Allergy (Verified 02/21/18 16:53) Rash Penicillins Allergy (Verified 02/21/18 16:53) Unknown Medications Vits [Prenatabs FA] 1 tab PO DAILY 11/23/17 [History Confirmed 02/21/18] ranitidine 150 mg tablet 150 mg PO QHS #60 tab 02/21/18 [Rx Confirmed 02/21/18] Last Menstral Period: 09/28/17 Zika: Zika virus screening: Positive : No PFSH PFSH Medical History cholecystctomy (Acute) tubes in ears (Acute) Surgical History toncillectomy (Acute) Social History Smoking Status: Never smoker alcohol intake: never substance use type: does not use HPI est ob 24 weeks: Details: VIKTORIA REYES is a 27 year old who presents for routine OB visit. OB Visit GARY Calculator Estimated Delivery Date 06/11/18 Based on Ultrasound Date 10/29/17 Current WG 24w 2d Number 1 Expected Delivery Route/Plan Initial Weight: 345 lb Date Weight BP Urine PrFHR FuHt Pres MoCTX DilationFetal StVisit NoProviderComments E ot v te GA G Effac lucose ed Visit Notes Visit Date: 02/21/18 no vb cramping good fm Marion Guardado MD on 02/21/18 Visit Date: 01/17/18 no vb crmaping Marion Guardado MD on 01/19/18 no vb no regular cramping- has ultrasound next. Marion Guardado MD on 01/17/18 ACOG First Trimester First Trimester: Discussed Diagnostics Diagnostics Labs Blood Type O POSITIVE 11/23/17 Antibody Screen NEGATIVE 10/25/17 Hct 30.8 % (37-47) L 01/24/18 Hgb 10.3 g/dl (12.0-15.0) L 01/24/18 Obstetrics Ultrasound 01/17/18 Rubella IgG Antibody 15.9 IU/mL 10/25/17 RPR NONREACTIVE (NONREACTIVE) 10/25/17 Hep Bs Antigen Negative (Negative) 10/25/17 Chlam trachomat DNA PCR Negative (Negative) 10/12/17 N.gonorrhoeae DNA (PCR) Negative (Negative) 10/12/17 Glucose 1 Hr 50 gm 105 mg/dL (70-140) 10/25/17 Details: HIV: Urine Culture: Sequential Screen: NIPT Screen: Results [id number] Office Urine Glucose Negative Last Edit by Sandra Guillen on 02/21/18 16:56 Office Urine Protein Negative Last Edit by Sandra Guillen on 02/21/18 16:56 Assessment AND Plan Orders Orders: Medications New: Coding Level of Care Code OB Routine 02/21/18 5750 <Electronically signed by Marion Guardado MD> Date Marion Guardado MD [facility] Signature: Date (if applicable) CC: 12 LEAD ELECTROCARDIOGRAM Observed: 01/27/2018 Status: F Source: [place] 1:09 PM [facility] Cardiovascular Services [address] [place] [address] 12 Lead EKG 01/24/18 1440 MR#: [id number] Acct: [id number] Name: VIKTORIA REYES Rep #: [id number] : 1990 From: Ubaldo Ly MD Attending Dr: Status: DEP ER Ordering Dr: Syed De La Cruz MD Date: 01/24/18 Location: ED Sex: F C Admitted: Test Reason : SOB Blood Pressure : / mmHG Vent. Rate : 079 BPM Atrial Rate : 079 BPM P-R Int : 150 ms QRS Dur : 094 ms QT Int : 376 ms P-R-T Axes : 038 010 021 degrees QTc Int : 431 ms Normal sinus rhythm Normal ECG Confirmed by DANE RESENDIZ, UBALDO ([id number]), subeditor MORENO OWUSU ([id number]) on 01/27/2018 1:08:54 PM Referred By: Marion Guardado Confirmed By:UBALDO LY MD 01/27/18 1308 Date Ubaldo Ly MD CC: Didier Albert DO; Syed De La Cruz MD Signed EMERGENCY DEPARTMENT Observed: 01/24/2018 Status: F Source: [place] SUMMARY 4:45 PM [facility] Medical Records Department [address] [place] [address] Emergency Department Summary 01/24/18 1639 MR#: [id number] Acct: [id number] Name: VIKTORIA REYES Rep #: [id number] : 1990 From: Syed De La Cruz MD PCP: Didier Albert DO Status: REG ER - ER Visit Summary Date of Service: 01/24/18 Chief Complaint: Chest pressure and shortness of breath History of Present Illness: The patient is a 27 F who is a Ab2 female who presents with chest pressure and shortness of breath that started abruptly. She states she cannot walk more than 25 feet without becoming dyspneic. She denies back pain. She denies leg pain, swelling discoloration. She denies fever, chills night sweats. She denies URI symptoms. She does complain of nausea without vomiting or diarrhea. She does complain complain of frequency without urgency, hematuria or dysuria. She denies any skin lesions. Physical Examination: Initial blood pressure 160/86 with a heart rate of 96. Pulse ox was 98% on room air. She appears slightly anxious. Does not appear in discomfort. Head is atraumatic normocephalic. Pupils are equal round reactive. Extraocular muscles are intact. TMs are pearly white with landmarks noted. Nares patent with no drainage. Posterior pharynx without erythema or exudate. Uvula is midline. There is no dysphonia or dysphasia. Trachea is midline. There is no stridor with auscultation of the neck. Heart is regular without murmur, gallop or rub. S1 and S2 are normal. Lungs are clear to auscultation with good movement of air bilaterally. Abdomen is soft nontender. Patient is alert and oriented 3. Motor is 5 over 5. Sensory is intact. DTRs are symmetric with no clonus or Babinski sign. Cranial 2 through 12 are intact. Cerebellar testing is normal. There is no pedal edema. There is no asymmetry, swelling, discoloration, leg vein distention, palpable cords or tenderness along the distribution of the deep venous system. Test Results: EKG was obtained and reveals a sinus rhythm rate of 79 with normal FL interval, QRS duration and QT interval. [place] is normal. Chest x-ray was obtained and reveals normal cardiac silhouette, mediastinum, lung parenchyma and osseous structures. There is no effusion. CBC is remarkable for an H AND H 10.3 and 38.8. CMP is remarkable for an albumin 2.7. Coags are normal. Uric acid is normal. UA is a contaminated specimen. D-dimer is less than 0.27. Emergency Department Course and Treatment: With history of abrupt onset of chest discomfort dyspnea and 20 weeks gestation differential includes pulmonary embolus, pneumothorax, preeclampsia. Doubt cardiac and doubt pneumonia. Case was discussed with her configurator Dr. Marion Guardado. Most recent blood pressure was normal. Treatment Plan: After discussion with her configurator patient to be discharged to home with follow-up in the next week Disposition: Discharged to home Impression: 1. Chest pain with dyspnea of unknown etiology 2. Transient hypertension 3. Anemia secondary to , second trimester This note was generated with Tesoraation software. It may contain incorrect words, spelling, and punctuation that were not noted in review of the chart prior to signing ED Disposition - Plan for ED Patient: Disposition: Home or Assisted Living Chief Complaint: Shortness of Breath Instructions: ED Chest Pain NonCardiac Referrals: Didier Albert DO [Primary Care Provider] - Marion Guardado MD [STAFF PHYSICIAN] - Keep Amanda appointment What to do if you have Problems For any increased pain, shortness of breath, bleeding, nausea or vomiting, chest pain, or any unexpected problems, contact your Primary Care Provider. Call [facility] ([phone]) or report to the closest Emergency Room. Call 911 if necessary. 01/24/18 5275 <Electronically signed by Syed De La Cruz MD> Date Syed De La Cruz MD Cosigner Signature (If Indicated): Date CC: Didier Albert DO URINALYSIS, COMPLETE Collected: 01/24/2018 Status: F Source: [place] 4:00 PM [facility] REPOSITORY Order Comment: Order Date: 01/24/18 How was Urine Obtained? CLEAN CATCH TYPE CODE TESTS RESULT OUT OF RANGE REFERENCE UNITS LAB L400.3000 Yellow COLOR Normal Yellow LAB L400.3050 Clear Normal CLARITY Sl. Cloudy LAB L400.3200 Normal mg/dl Normal GLUCOSE, UR Normal LAB L400.3300 Negative mg/dL Normal BILIRUBIN URINE Negative LAB L400.3400 Negative mg/dl Normal KETONE UR Negative LAB L400.3465 1.002-1.030 Normal SP.GR. DIPSTX 1.015 LAB L400.3550 5.0 - 8.0 pH UR Normal 6.5 LAB L400.3600 Negative mg/dl High PROT 15 DIPSTX LAB L400.3700 Normal mg/dl High 1 UROBILI LAB L400.3750 Negative Normal NITRITE UR Negative LAB L400.3780 Negative /ul Normal OCCULT BLOOD-UR Negative LAB L400.3800 Negative /ul High LEUK 25 ESTERASE LAB L400.4050 0-5 /hpf WBC 0 Normal SEEN LAB L400.4100 0-5 /hpf 0 Normal RBC-UA SEEN LAB L400.4150 5-10 /hpf SQUAM Normal EPI 5-10 SEEN LAB L400.4300 None Seen /hpf 3+ Normal BACTERIA LAB L400.4350 <or=2+ /hpf 0 Normal MUCUS, URINE SEEN Performed By: #### L400.0001 #### [facility] [address] [place], [address] CBC W/DIFF, AUTOMATED Collected: 01/24/2018 Status: F Source: [place] 3:10 PM [facility] REPOSITORY TYPE CODE TESTS RESULT OUT OF RANGE REFERENCE UNITS LAB L100.1000 4.4-11.0 K/mm3 Normal WBC 10.9 LAB L100.1200 4.2-5.4 M/mm3 Low RBC 3.56 LAB L100.1300 12.0-15.0 g/dl Low HGB 10.3 LAB L100.1400 37-47 % Low HCT 30.8 LAB L100.1500 81-99 fL Normal MCV 86.5 LAB L100.1600 27.0-32.0 pg Normal MCH 28.9 LAB L100.1700 32-36 g/gl Normal MCHC 33.4 LAB L100.1810 11.6-14.6 % High RDW CV 15.8 LAB L100.1820 35.1-43.9 fl High RDW SD 48.2 LAB L100.1900 150-450 K/mm3 Normal PLT 247 LAB L100.2000 6.2-12.0 fl Normal MPV 9.5 LAB L100.2100 47-70 % High NEUT% 71.2 LAB L100.2200 19-41 % Normal LY% 20.9 LAB L100.2300 0-10 % Normal MONO% 5.7 LAB L100.2400 0-5 % Normal EO% 1.4 LAB L100.2500 0-1 % Normal BASO% 0.2 LAB L100.2550 0.0-0.9 % Normal IM GRAN % 0.600 Result Comment: IG% - Immature Granulocytes (promyelocytes, myelocytes and metamyelocytes) > 1% indicates that a LEFT SHIFT is Present. LAB L100.2620 2.0-7.7 X10 3/uL High Absolute Neut 7.8 LAB L100.2720 0.83-4.51 X10 3/ul Normal Absolute Lymph 2.27 Performed By: #### L100.0100 #### [facility] [address] [place], [address] COMPREHENSIVE METABOLIC Collected: 01/24/2018 Status: F Source: [facility] 3:10 PM [facility] REPOSITORY TYPE CODE TESTS RESULT OUT OF RANGE REFERENCE UNITS LAB L501.0100 74-106 mg/dL Low GLU 70 Result Comment: Please note revised GLUCOSE reference range effective 2017. LAB L501.1000 7-18 mg/dL Normal BUN 7 LAB L501.1100 0.55-1.02 mg/dL Low CREAT,SERUM 0.53 Result Comment: The validity of the calculated GFR AND GFRAA in patients over 70 years has not been determined. Clinical correlation is essential. LAB L501.1110 >60 mL/min Normal EST GFR 147 Result Comment: Non- GFR Calc LAB L501.1115 >60 mL/min Normal EST GFR - AA 178 Result Comment: GFR Calc LAB L501.1255 ml/min Normal Estimated CRCL 137.68 LAB L501.1300 10-20 RATIO BUN/CRE Normal 13.2 LAB L501.1500 6.4-8. g/dL 2 T PROT Normal 7.0 LAB L501.1800 3.2-5. g/dL Low 0 ALB 2.7 LAB L501.1950 2.2-4. g/dL High 2 GLOB 4.3 LAB L501.2000 0.9-2. RATIO Low 4 A/G 0.6 LAB L501.2200 8.5-10 mg/dL .1 CA Normal 8.6 LAB L501.4100 15-37 U/L Low AST 12 LAB L501.4305 45-117 U/L ALK P Normal 73 LAB L501.4405 13-56 U/L ALT Normal 26 LAB L501.4600 0.20-1 mg/dL .00 T BILI Normal 0.20 LAB L501.5300 136-14 mmol/L 5 NA Normal 138 LAB L501.5600 3.5-5. mmol/L 1 K Normal 3.7 LAB L501.5900 98-107 mmol/L CL Normal 107 LAB L501.6100 21.0-3 mmol/L 2.0 CO2 Normal 22.0 LAB L501.6200 5-15 GAP Normal 9 Performed By: #### L500.4050, L501.1400, L501.4010, L504.2610 #### [facility] [address] [place], [place], [address] URIC ACID Collected: 01/24/2018 Status: F Source: [place] 3:10 PM [facility] REPOSITORY TYPE CODE TESTS RESULT OUT OF RANGE REFERENCE UNITS LAB L501.1400 2.6-6.0 mg/dL Normal URIC 4.2 Result Comment: The drugs N-Acetylcysteine and Metamizole may falsely depress this assay. Performed By: #### L500.4050, L501.1400, L501.4010, L504.2610 #### [facility] [address] [place], [address] TROPONIN-I Collected: 01/24/2018 Status: F Source: [place] 3:10 PM [facility] REPOSITORY TYPE CODE TESTS RESULT OUT OF RANGE REFERENCE UNITS LAB L501.4010 <0.045 ng/mL Normal < 0.015 TROPONIN-I Result Comment: TROPONIN-I EXPECTED VALUES <0.045 Negative 0.045 - 0.590 Consistent with Cardiac Damage > OR = 0.600 Critical Value Not every elevated troponin is indicative of SC. These values should be used with clinical judgement in examining the patient's clinical picture for diagnosis. To establish a diagnosis of SC versus myocardial injury, there must be a demonstrated rise and/or fall in the troponin values, in addition to ischemic symptoms, EKG changes, new regional wall motion abnormality, and/or angiographical evidence. PLEASE NOTE: REFERENCE RANGES EDITED 17 Performed By: #### L500.4050, L501.1400, L501.4010, L504.2610 #### [facility] [address] [place], [address] LDH Collected: 01/24/2018 Status: F Source: [place] 3:10 PM [facility] REPOSITORY TYPE CODE TESTS RESULT OUT OF RANGE REFERENCE UNITS LAB L504.2610 84-246 U/L Normal LDH 135 Performed By: #### L500.4050, L501.1400, L501.4010, L504.2610 #### [facility] [address] [place], [address] PROTHROMBIN TIME W/INR Collected: 01/24/2018 Status: F Source: [place] 3:10 PM [facility] REPOSITORY TYPE CODE TESTS RESULT OUT OF RANGE REFERENCE UNITS LAB L300.4150 11.7-14.9 SECONDS Normal PROTIME 13.0 LAB L300.4200 Normal INR 1.0 Performed By: #### L300.3900, L300.4310, L300.8000 #### [facility] [address] [place], [address] PARTIAL THROMBOPLAST Collected: 01/24/2018 Status: F Source: [place] TIME 3:10 PM [facility] REPOSITORY TYPE CODE TESTS RESULT OUT OF RANGE REFERENCE UNITS LAB L300.4310 24.1-36.2 Seconds Normal PTT 28.8 Performed By: #### L300.3900, L300.4310, L300.8000 #### [facility] [address] [place], [address] D-DIMER QUANTITATIVE Collected: 01/24/2018 Status: F Source: [place] (DVT/PE) 3:10 PM [facility] REPOSITORY TYPE CODE TESTS RESULT OUT OF RANGE REFERENCE UNITS LAB L300.8000 0.27-0.49 FEU/ug/m Low D-DIMER < 0.27 QUANT Result Comment: NORMAL D-Dimer level (<0.50) indicates no DVT or PE. Performed By: #### L300.3900, L300.4310, L300.8000 #### [facility] [address] [place], [address] CHEST PA AND LATERAL Observed: 01/24/2018 Status: F Source: [place] 2:34 PM [facility] REPOSITORY [facility] Imaging Services [address] [place] [address] Chest PA and Lateral MR#: [id number] Acct: [id number] Name: VIKTORIA REYES Rep #: [id number] : 1990 F 27 From: Erick Rand MD PCP: Didier Albert DO Status: REG ER Study: Chest PA and Lateral Date of Exam: 01/24/18 Exam# [id number] Ordering Dr: Syed De La Cruz MD STUDY: X-RAY CHEST REASON FOR EXAM: Female, 27 years old. Dyspnea and shortness of breath. Syncopal episodes. The patient is 20 weeks . The patient was shielded appropriately. TECHNIQUE: PA and lateral views of the chest. COMPARISON: None. FINDINGS: EKG electrodes are seen. The lungs are clear and expanded. There is no demonstrated pleural abnormality. Normal size heart. Normal mediastinum and fallon. Normal visualized pulmonary arteries. Normal visualized aortic arch and descending thoracic aorta. Normal visualized thoracic spine. Normal visualized ribs, clavicles, and shoulders. There is no demonstrated abnormality of the visualized soft tissue structures of the upper abdomen. RAD/Chest PA and Lateral IMPRESSION: Normal x-ray examination of the chest. Electronically Signed: Erick Rand MD at 15:33 EDT Tel [phone], Service support , CC: Didier Albert DO; Syed De La Cruz MD Police Captain Senior: Signed [facility] OFFICE VISIT Observed: 01/19/2018 Status: F Source: [place] REPORT 10:04 PM [facility] REPOSITORY [facility] [address] [place] [address] OFFICE VISIT Date of Service: 01/17/18 MR#: [id number] Acct: [id number] Name: VIKTORIA REYES Rep #: [id number] : 1990 Provider: Marion Guardado MD Age/Sex: 27/F Location: [facility] Status: Signed Intake Vital Signs01/17/18 Height 5 ft 4 in 01/17/18 Weight: 350 lb 4 oz 01/17/18 Body Mass Index (BMI) 60.1 01/17/18 Blood Pressure 134/72 Intake Visit Reasons: est ob 19 weeks be here at 4p Scan at 4:30 Drug Counselor Required: No Is patient in pain?: No Allergies codeine Allergy (Unknown, Verified 01/17/18 16:15) Unknown acetaminophen [From Vicodin] Allergy (Verified 01/17/18 16:15) Unknown hydrocodone [From Vicodin] Allergy (Verified 01/17/18 16:15) Unknown Penicillins Allergy (Verified 01/17/18 16:15) Unknown Medications Vits [Prenatabs FA] 1 tab PO DAILY 11/23/17 [History Confirmed 01/17/18] Last Menstral Period: 05/10/17 Zika: Zika virus screening: Negative : No PFSH PFSH Medical History cholecystctomy (Acute) tubes in ears (Acute) Surgical History toncillectomy (Acute) Social History Smoking Status: Former smoker alcohol intake: never substance use type: does not use HPI est ob 19 weeks be here at 4p Scan at 4:30: Details: VIKTORIA REYES is a 27 year old who presents for routine OB visit. OB Visit GARY Calculator Estimated Delivery Date 06/11/18 Based on Ultrasound Date 10/29/17 Current WG 19w 4d Number 1 Expected Delivery Route/Plan Initial Weight: 345 lb Date Weight BP Urine PrFHR FuHt Pres MoCTX DilationFetal StVisit NoProviderComments E ot v te [place] G Effac lucose ed Visit Notes Visit Date: 01/17/18 no vb crmaping Marion Guardado MD on 01/19/18 no vb no regular cramping- has ultrasound next. Marion Guardado MD on 01/17/18 ACOG First Trimester First Trimester: Discussed Diagnostics Diagnostics Labs Blood Type O POSITIVE 11/23/17 Antibody Screen NEGATIVE 10/25/17 Hct 35.5 % (37-47) L 10/25/17 Hgb 11.5 g/dl (12.0-15.0) L 10/25/17 Obstetrics Ultrasound 01/17/18 Rubella IgG Antibody 15.9 IU/mL 10/25/17 RPR NONREACTIVE (NONREACTIVE) 10/25/17 Hep Bs Antigen Negative (Negative) 10/25/17 Chlam trachomat DNA PCR Negative (Negative) 10/12/17 N.gonorrhoeae DNA (PCR) Negative (Negative) 10/12/17 Glucose 1 Hr 50 gm 105 mg/dL (70-140) 10/25/17 Details: HIV: Urine Culture: Sequential Screen: NIPT Screen: Assessment AND Plan Problems 1. Encounter for supervision of other normal in second trimester Z34.82 PRR GARY 06/11/18? Kristopher 2. Obesity affecting in second trimester O99.212 1st trimester glucola and plan weekly nsts growth q4 weeks after 32 weeks 3. ASCUS favor benign 2018 ascus hpv neg 4. 19 weeks gestation of Z3A.19 considering quad screen- checking insurance. carrier screening declined. Plan ACOG trimester education reviewed and updated. see problem list details for updated plan management information and see below for orders placed at this visit. GA appropriate handout given. Coding Level of Care Code OB Routine Diagnoses Encounter for supervision of other normal in second trimester Z34.82 Normal : other normal Trimester: second trimester Obesity affecting in second trimester O99.212 Trimester: second trimester ASCUS favor benign 19 weeks gestation of Z3A.19 Weeks of gestation: 19 weeks 01/19/18 2204 <Electronically signed by Marion Guardado MD> Date [facility] Signature: Date (if applicable) CC: OB LIMITED (NO Observed: 01/17/2018 Status: F Source: [place] BIOMETRICS) 4:48 PM [facility] REPOSITORY [facility] Imaging Services [address] [place] [address] OB Limited (No Biometrics) MR#: [id number] Acct: [id number] Name: VIKTORIA REYES Rep #: [id number] : 1990 F 27 From: Erick Rand MD PCP: Didier Albert DO Status: REG CLI Study: OB Limited (No Biometrics) Date of Exam: 01/17/18 Exam# [id number] Ordering Dr: Marion Guardado MD STUDY: SECOND AND THIRD TRIMESTER OBSTETRICAL ULTRASOUND - LIMITED REASON FOR EXAM: Female, 27 years old. Routine survey. LMP: November 23, 2017 PRIOR ULTRASOUND: None. TECHNIQUE: Transabdominal ultrasound evaluation was performed. The study is limited due to the patient's body habitus. FINDINGS: There is a single intrauterine fetus. The fetus is in a cephalic presentation. There is demonstrated cardiac activity with a heart rate of 150 bpm. There are Grade 1 placental changes. BIOMETRY: Not visualized due to patient's body habitus. US/OB Limited (No Biometrics) IMPRESSION: Live intrauterine gestation. Marked degree of the limited view due to the patient's body habitus. Electronically Signed: Erick Rand MD at 13:38 EDT Tel [phone], Service support , CC: Didier Albert DO; Marion Guardado MD Police Captain Senior: Signed [facility] OFFICE VISIT Observed: 12/15/2017 Status: F Source: [place] REPORT 2:20 AM [facility] [address] [place] [address] OFFICE VISIT Date of Service: 12/13/17 MR#: [id number] Acct: [id number] Name: VIKTORIA REYES Rep #: [id number] : 1990 Provider: Marion Guardado MD Age/Sex: 27/F Location: [facility] Status: Signed Intake Vital Signs12/13/17 Height 5 ft 4 in 12/13/17 Weight: 346 lb 2 oz 12/13/17 Body Mass Index (BMI) 59.4 12/13/17 Blood Pressure 124/74 Intake Visit Reasons: ER follow up Drug Counselor Required: No Is patient in pain?: Yes (cramping, but is no longer bleeding) Pain scale (1-10): 4 Allergies codeine Allergy (Unknown, Verified 12/13/17 12:28) Unknown acetaminophen [From Vicodin] Allergy (Verified 12/13/17 12:28) Unknown hydrocodone [From Vicodin] Allergy (Verified 12/13/17 12:28) Unknown Penicillins Allergy (Verified 12/13/17 12:28) Unknown Medications Vits [Prenatabs FA] 1 tab PO DAILY 11/23/17 [History Confirmed 12/13/17] Post menopausal: No Patient : Yes : No [facility] Medical History cholecystctomy (Acute) tubes in ears (Acute) Surgical History toncillectomy (Acute) Social History Smoking Status: Former smoker alcohol intake: never substance use type: does not use HPI ER follow up: Details: VIKTORIA REYES is a 27 year old who presents for cramping. fhts 140s no vb Assessment AND Plan Problems 1. Encounter for supervision of other normal in second trimester Z34.82 GARY 06/11/17 2. Obesity affecting in second trimester O99.212 1st trimester glucola and plan weekly nsts growth q4 weeks after 32 weeks Plan ACOG trimester education reviewed and updated. see problem list details for updated plan management information and see below for orders placed at this visit. GA appropriate handout given. Coding Level of Care Code No Charge Diagnoses Encounter for supervision of other normal in second trimester Z34.82 Normal : other normal Trimester: second trimester Obesity affecting in second trimester O99.212 Trimester: second trimester 12/15/17 0220 <Electronically signed by Marion Guardado MD> Date Marion Guardado MD Cosigner Signature: Date (if applicable) CC: EMERGENCY DEPARTMENT Observed: 11/23/2017 Status: F Source: [place] SUMMARY 11:57 PM [facility] REPOSITORY [facility] Medical Records Department [address] [facility] [place] [address] Emergency Department Summary 11/23/17 2103 MR#: [id number] Acct: [id number] Name: VIKTORIA REYES Rep #: [id number] : 1990 27 From: Ricky Pedro MD PCP: Didier Albert DO Status: DEP ER - ER Visit Summary Date of Service: 11/23/17 Chief Complaint: Vaginal bleeding and History of Present Illness: The patient is a 27 F states that she had pelvic cramping today. Had several episodes of vaginal bleeding. Some minor clots other just spotting. Denies discharge or dysuria. She is currently at around 11 weeks. with 2 prior miscarriages. Last menstrual period was July 2017. She is currently under the care of Dr. Guardado of [facility]. Physical Examination: Well-appearing young female. Vital signs are stable afebrile. H EENT exam unremarkable. Neck nontender. Lungs clear to auscultation bilaterally. Heart regular rate and rhythm no murmur. Abdomen soft nontender normal bowel sounds no peritoneal signs. Moving all 4 extremities. Neurologically she is awake alert with no focal motor deficits. Test Results: Pelvic T ATV ultrasound was performed. Showed a 11 weeks 1 day. heart rate 164. Questionable subchorionic bleed. Quantitative hCG was 33,097. Blood type was O+. Emergency Department Course and Treatment: Repeat exam patient doing well at 2014 and 2104. She will be discharged to home. She was offered but deferred a pelvic exam at this time. Treatment Plan: Follow-up with her [facility]. Disposition: Discharge Impression: Acute vaginal bleeding at 11 weeks Threatened miscarriage with 2 prior miscarriages This note was generated with Tesoraation software. It may contain incorrect words, spelling, and punctuation that were not noted in review of the chart prior to signing ED Disposition - Plan for ED Patient: Chief Complaint: Vag Bld, Preg Referrals: Didier Albert, [Primary Care Provider] - What to do if you have Problems For any increased pain, shortness of breath, bleeding, nausea or vomiting, chest pain, or any unexpected problems, contact your Primary Care Provider. Call [facility] ([phone]) or report to the closest Emergency Room. Call 911 if necessary. 11/23/17 3467 <Electronically signed by Ricky Pedro MD> Date Ricky Pedro MD Cosigner Signature (If Indicated): Date CC: Didier Albert DO DISCHARGE INSTRUCTION Observed: 11/23/2017 Status: F Source: [place] 11:57 PM [facility] Medical Records Department [address] [place] [address] Discharge Instruction 11/23/172104 MR#: [id number] Acct: [id number] Name: VIKTORIA REYES Rep #: [id number] : 1990 27 From: Ricky Pedro MD PCP: Didier Albert DO Status: DEP ER ED Disposition - Plan for ED Patient: Disposition: Home or Assisted Living Chief Complaint: Vag Bld, Preg Instructions: ED Miscarriage Poss Referrals: Marion Guardado MD [STAFF PHYSICIAN] - As soon as possible Additional Instructions: Call follow-up with your GATE GUARD. Exam your bleeding or that is potentially a concern for a miscarriage. At this time you were still 11 weeks. Your blood type is O+. What to do if you have Problems For any increased pain, shortness of breath, bleeding, nausea or vomiting, chest pain, or any unexpected problems, contact your Primary Care Provider. Call [facility] ([phone]) or report to the closest Emergency Room. Call 911 if necessary. 11/23/17 4052 <Electronically signed by Ricky Pedro MD> Date Ricky Pedro MD Cosigner Signature (If Indicated): Date CC: Didier Albert DO HCG TITER QUANT., Collected: 11/23/2017 Status: F Source: [place] SERUM 6:25 PM [facility] REPOSITORY TYPE CODE TESTS RESULT OUT OF RANGE REFERENCE UNITS LAB L700.8000 <9 non-preg mIU/mL High HCG 54967 QUANT. Performed By: #### L700.8000 #### [facility] [address] [place], [place], [address] ABO RH BLOOD TYPE, Collected: 11/23/2017 Status: F Source: KAY PATIENT 6:25 PM [facility] REPOSITORY TYPE CODE TESTS RESULT OUT OF RANGE REFERENCE UNITS LAB B10.0800 O Normal BLOOD POSITIVE TYPE GEL Performed By: #### B10.0010 #### [facility] [address] [place], [place], [id number] TRANSVAGINAL W/PREG US Observed: 11/23/2017 Status: F Source: [place] 6:23 PM [facility] [place] [address] Transvaginal w/Preg US MR#: [id number] Acct: [id number] Name: VIKTORIA REYES Rep #: [id number] : 1990 F 27 From: Julian Becerra DO PCP: Didier Albert DO Status: REG ER Study: Transvaginal w/Preg US Date of Exam: 11/23/17 Exam# [id number] Ordering Dr: Ricky Pedro MD STUDY: FIRST TRIMESTER OBSTETRICAL ULTRASOUND REASON FOR EXAM: Female, 27 years old. Sharp lower pelvic pain and bleeding. LMP: September 04, 2017. TECHNIQUE: Transvaginal PRIOR ULTRASOUND: None. FINDINGS: There is visualization of a single gestational sac in a normal intrauterine position. The mean sac diameter (MSD) measures 4.94 cm, indicating an estimated gestational age (EGA) of 10 weeks, 6 days. There is no demonstrated yolk sac. There is visualization of the placenta. The placenta is anterior in location and grade 0 in appearance. There is visualization of a live embryo. The crown-rump length (CRL) measures 4.54 cm, indicating an estimated gestational age (EGA) of 11 weeks, 3 days. There is demonstrated cardiac activity with a heart rate of 164 bpm. The estimated gestation age (EGA) by LMP is 11 weeks, 3 days. The estimated date of delivery (GARY) by LMP is June 11, 2018. The estimated gestation age (EGA) by US is 11 weeks, 1 days. The estimated date of delivery (GARY) by US is June 13, 2018. The uterus measures 11 x 7.2 x 7 cm. There is no demonstrated uterine fibroid. The cervix is there is an area of increased echogenicity along the inferior aspect of the gestational sac. Etiology is uncertain. This may represent a subchorionic hematoma. The right ovary is not visualized. There is no visualized right adnexal mass or complex lesion. The left ovary measures 3.6 x 2.3 x 2.0. There is no left ovarian cyst. There is no visualized left adnexal mass or complex lesion. There is no fluid in the cul de sac. US/Transvaginal w/Preg US IMPRESSION: 1. Live single intrauterine 11 weeks, 1 day. GARY is June 13, 2018. 2. heart rate of 16 4 bpm. 3. Echogenic area between the gestational sac and cervix. Question subchorionic hemorrhage. 4. Normal left ovary. The right ovary is not seen. Electronically Signed: Julian Becerra DO at 19:30 EDT Tel [phone], Service support , CC: Didier Albert DO; Ricky Pedro MD Police Captain Senior: Signed INIT OB < 14WKS US Observed: 10/29/2017 Status: F Source: [place] 10:40 AM [facility] Imaging Services [address] [place] [address] Init OB < 14Wks US MR#: [id number] Acct: [id number] Name: VIKTORIA REYES Rep #: [id number] : 1990 F 27 From: Erick Rand MD PCP: Didier Albert DO Status: REG CLI Study: Init OB < 14Wks US Date of Exam: 10/29/17 Exam# [id number] Ordering Dr: Marion Guardado MD STUDY: FIRST TRIMESTER OBSTETRICAL ULTRASOUND REASON FOR EXAM: Female, 27 years old. Threatened . LMP: August 12, 2017. TECHNIQUE: Transvaginal PRIOR ULTRASOUND: None. FINDINGS: There is visualization of a single gestational sac in a normal intrauterine position. The mean sac diameter (MSD) measures 2.51 cm, indicating an estimated gestational age (EGA) of 7 weeks, 5 days. The gestational sac shape is within normal limits. There is a 1.7 cm x 0.5 cm x 1.0 cm subchorionic fluid collection suggestive of a small subchorionic bleed. There is a visualized yolk sac. The yolk sac measures 6.1 mm. The placenta is non-visualized. There is visualization of a live embryo. The crown-rump length (CRL) measures 1.49 cm, indicating an estimated gestational age (EGA) of 7 weeks, 6 days. There is demonstrated cardiac activity with a heart rate of 149 bpm. The estimated gestation age (EGA) by LMP is 11 weeks, 1 days. The estimated date of delivery (GARY) by LMP is May 19, 2018. The estimated gestation age (EGA) by US is 7 weeks, 6 days. The estimated date of delivery (GARY) by US is June 11, 2018. The uterus measures 9.6 cm x 5.4 cm x 5.6 cm. There is no demonstrated uterine fibroid. The cervix is closed. The right ovary was not visualized. The left ovary was not visualized. There is no fluid in the cul de sac. US/Init OB < 14Wks US IMPRESSION: Single live uterine gestation with a mean gestational age of 7 weeks and 6 days. Findings suggestive of a small subchorionic bleed. Electronically Signed: Erick Rand MD at 14:10 EDT Tel [phone], Service support , CC: Didier Albert DO; Marion Guardado MD Police Captain Senior: Signed DOWNTIME REPORT Observed: 10/28/2017 Status: F Source: [place] 2:13 PM [facility] Medical Records Department [address] [place] [address] Downtime Report MR#: [id number] Acct: [id number] Name: VIKTORIA REYES Rep #: [id number] : 1990 27 From: Wilberto Owusu PCP: Didier Albert DO Status: REG CLI This patient was seen during an EMR downtime October 11, 2017 - October 18, 2017. This patient may have a combination of paper and electronic documentation or all paper documentation. All documentation is viewable within the e-chart portion of [employer] for each patient visit. DOWNTIME REPORT Observed: 10/28/2017 Status: F Source: [place] 2:11 PM [facility] Medical Records Department [address] [place] [address] Downtime Report MR#: [id number] Acct: [id number] Name: VIKTORIA REYES Rep #: [id number] : 1990 27 From: Wilberto Owusu PCP: Status: REG CLI This patient was seen during an EMR downtime October 11, 2017 - October 18, 2017. This patient may have a combination of paper and electronic documentation or all paper documentation. All documentation is viewable within the e-chart portion of [employer] for each patient visit. GLUCOSE CHALLENGE GEST Collected: 10/25/2017 Status: F Source: [place] 1H 50G 3:55 PM [facility] REPOSITORY TYPE CODE TESTS RESULT OUT OF RANGE REFERENCE UNITS LAB L501.0250 70-140 mg/dL Normal GLU GEST 105 50g 1H Performed By: #### L501.0250 #### [facility] [address] [facility] [place], [address] CBC W/DIFF, AUTOMATED Collected: 10/25/2017 Status: F Source: [place] 2:42 PM [facility] REPOSITORY TYPE CODE TESTS RESULT OUT OF RANGE REFERENCE UNITS LAB L100.1000 4.4-11.0 K/mm3 Normal WBC 10.2 LAB L100.1200 4.2-5.4 M/mm3 Low RBC 4.16 LAB L100.1300 12.0-15.0 g/dl Low HGB 11.5 LAB L100.1400 37-47 % Low HCT 35.5 LAB L100.1500 81-99 fL Normal MCV 85.3 LAB L100.1600 27.0-32.0 pg Normal MCH 27.6 LAB L100.1700 32-36 g/gl Normal MCHC 32.4 LAB L100.1810 11.6-14.6 % Normal RDW CV 14.3 LAB L100.1820 35.1-43.9 fl Normal RDW SD 43.7 LAB L100.1900 150-450 K/mm3 Normal PLT 273 LAB L100.2000 6.2-12.0 fl Normal MPV 9.6 LAB L100.2100 47-70 % Normal NEUT% 68.5 LAB L100.2200 19-41 % Normal LY% 25.4 LAB L100.2300 0-10 % Normal MONO% 3.8 LAB L100.2400 0-5 % Normal EO% 2.0 LAB L100.2500 0-1 % Normal BASO% 0.1 LAB L100.2550 0.0-0.9 % Normal IM GRAN % 0.200 Result Comment: IG% - Immature Granulocytes (promyelocytes, myelocytes and metamyelocytes) > 1% indicates that a LEFT SHIFT is Present. LAB L100.2620 2.0-7.7 X10 3/uL Normal Absolute Neut 7.0 LAB L100.2720 0.83-4.51 X10 3/ul Normal Absolute Lymph 2.60 Performed By: #### L100.0100 #### [facility] [address] [facility] [facility] [id number] RUBELLA IGG Collected: 10/25/2017 Status: F Source: [place] 2:42 PM [facility] REPOSIT[facility] TYPE CODE TESTS RESULT OUT OF RANGE REFERENCE UNITS LAB L509.4000 IU/mL Normal Rubella IgG 15.9 Result Comment: Antibody results Interpretation of Immune Status < 5 IU/ml Presumed Non-immune 5 - < 10 IU/ml Equivocal > or = 10 IU/ml Presumed Immune Performed By: #### L509.4000, L3890.6005 #### [facility] [address] [place], [place], [address] HIV - W[facility] Collected: 10/25/2017 Status: F Source: [place] 2:42 PM [facility] REPOSIT[facility] TYPE CODE TESTS RESULT OUT OF RANGE REFERENCE UNITS LAB L3890.6005 Nonreactive Normal HIV - [facility] Non-Reactive Performed By: #### L509.4000, L3890.6005 #### [facility] [address] [place], [address] TYPE AND SCREEN Collected: 10/25/2017 Status: F Source: [place] 2:42 PM [facility] REPOSITORY Order Comment: Reason for Type AND Screen/Red Cells: TYPE CODE TESTS RESULT OUT OF RANGE REFERENCE UNITS LAB B10.0800 O Normal BLOOD TYPE GEL POSITIVE LAB B100.4000 Normal Antibody NEGATIVE Screen Performed By: #### B101.7450 #### [facility] [address] [facility] [place], [place], [address] HEPATITIS B SURFACE Collected: 10/25/2017 Status: F Source: [place] AG 2:42 PM [facility] REPOSITORY TYPE CODE TESTS RESULT OUT OF RANGE REFERENCE UNITS LAB L3100.0400 Negative Normal HB Negative SURF AG Result Comment: Performed at: [facility] [id number] Sand Digger: Edenilson Vivas PhD, Phone: [phone] Performed By: #### L3100.0390, L3100.0528 #### [facility] (refer to report for specific site) refer to report for address and phone number HEP B SURFACE Collected: 10/25/2017 Status: F Source: [place] ANTIBODIES 2:42 PM [facility] REPOSITORY TYPE CODE TESTS RESULT OUT OF RANGE REFERENCE UNITS LAB L3100.0528 . Normal Hep B Reactive David AB Result Comment: Non Reactive: Inconsistent with immunity, less than 10 mIU/mL Reactive: Consistent with immunity, greater than 9.9 mIU/mL Performed By: #### L3100.0390, L3100.0528 #### [facility] (refer to report for specific site) refer to report for address and phone number RAPID PLASMIN REAGIN Collected: 10/25/2017 Status: F Source: [place] (RPR) 2:42 PM [facility] REPOSITORY TYPE CODE TESTS RESULT OUT OF REFERENCE UNITS RANGE LAB L700.5000 NONREACTIVE NONREACTIVE Normal RPR Performed By: #### L700.5000 #### [facility] [address] [facility] [place], [place], [address] Observed: 10/12/2017 Status: F Source: [place] CULTURE, URINE 4:00 PM [facility] REPOSITORY Urine Culture Below infection level. ORGANISM 1: Mixed Gram Positive Organisms [place] Count 1000-10,000 Performed By: #### M100.0650 #### [facility] [address] [facility] [place], [address] CT/NG WCH BY PCR Collected: 10/12/2017 Status: F Source: [place] 4:00 PM [facility] REPOSITORY Order Comment: RESULT(S) PREVIOUSLY REPORTED ON MANUAL REQUISITION DURING DOWNTIME. TYPE CODE TESTS RESULT OUT OF RANGE REFERENCE UNITS LAB L8200.2100 Negative Normal Chlam Negative Trac PCR LAB L8200.2200 Negative Normal NG by Negative PCR Performed By: #### L8200.2000 #### [facility] [address] [place], [address] PAP I-G W/RFX Collected: 10/12/2017 Status: F Source: [place] HRHPV-APTIMA 3:00 PM [facility] REPOSITORY Order Comment: CYTOLOGY INFORMATION: - CLINICAL INFORMATION: - DATE LMP/MENOPAUSE: 07/21/17 LMP - COLLECTION VIAL: Thin Prep Vial - ADMINISTRATIVE ASSISTANT FRONT DESK SOURCE: CERVICAL - COLLECTION TECHNIQUE: CX BROOM ONLY Specimen Comment: Source.............Cervix Specimen Comment: LMP / Prev Treat...RAS=[id number] Specimen Comment: No. of containers..01 ThinPrep Vial TYPE CODE TESTS RESULT OUT OF REFERENCE UNITS RANGE LAB L7400.0800 . High DIAGN Comment Result Comment: EPITHELIAL CELL ABNORMALITY. ATYPICAL SQUAMOUS CELLS OF UNDETERMINED SIGNIFICANCE. LAB L7400.0900 . Normal ADEQ Comment Result Comment: Satisfactory for evaluation. No endocervical component is identified. LAB L7400.1300 . High RECOMM Comment Result Comment: Suggest follow up as clinically appropriate. LAB L7400.1400 . Normal PERFORM Comment Result Comment: Adwoa Busby Lead Infrastructure Architect (ASCP) LAB L7400.1700 . Normal SIGN Comment Result Comment: Bere Swanson MD, Pathologist LAB L7400.1720 . Normal Path prov. Comment ICD9 Result Comment: R87.610 LAB L7400.2575 . Normal TEST METHOD Comment Result Comment: This liquid based ThinPrep(R) pap test was screened with the use of an image guided system. LAB L7400.2600 . Normal . COMM LAB L7400.2700 . Normal PAPSMR Comment Result Comment: The Pap smear is a screening test designed to aid in the detection of premalignant and malignant conditions of the uterine cervix. It is not a diagnostic procedure and should not be used as the sole means of detecting cervical cancer. Both false-positive and false-negative reports do occur. LAB L6753.1719 Negative Normal HPV APTIMA, Negative HR Result Comment: This test detects fourteen high-risk HPV types (16/18/31/33/35/39/45/ 51/52/56/58/59/66/68) without differentiation. Performed at: [facility] - [facility] [id number] Sand Digger: Sparkle Mendoza MD, Phone: [phone] Performed at: =G - [facility] [address] [id number] Sand Digger: Sparkle Mendoza MD, Phone: [phone] LAB L2204.8163 . Normal HPV RFLX Comment Result Comment: See below for HPV testing results. Performed By: #### L7400.0353 #### [facility] (refer to report for specific site) refer to report for address and phone number Observed: 10/07/2017 Status: F Source: [place] ABO/RH 10:21 AM CLINIC REFERENCE REPOSITORY ABO/RH(D): %O %POS Order Type: BBK HCG, QUANTITATIVE BL Collected: 10/07/2017 Status: F Source: [place] 10:21 AM CLINIC REFERENCE REPOSITORY TYPE CODE TESTS RESULT OUT OF REFERENCE UNITS RANGE LAB HCGQT(LOIN <5.0 mU/mL C) HCG, High Quantitative Bl 1543.0 ED DOC Observed: 06/28/2017 Status: UNK Source: [facility] 1:26 AM [place] [facility] REPOSITORY This is a preliminary report only, as the practitioner review and authentication has not occurred. ED DOC Observed: 06/28/2017 Status: UNK Source: [facility] 1:26 AM [facility] REPOSITORY PHYSICIAN ASSESSMENT RECORDS : [employer] Event Time: 06/28/2017 00:20 CJ Status: Signed [facility] Viktoria Eric [[id number]] Mid-Level Chart (V2b) 26 / F / 1990 Chart created at 06/28/2017 00:12 by Cipriano Mtz Chart closed at 06/28/2017 01:06 Entry in Emergency Department at 06/27/2017 23:32, departure at 06/28/2017 01:26 Patient Name: Viktoria Reyes Record Number: [id number] Date: 06/28/2017 00:12 Entered Department at: 06/27/2017 23:32 Patient Seen at: 06/27/2017 23:53 Historian: Patient Chief Complaint:pt having lower back pain pt fell 2 weeks ago and injured back Nursing triage/initial assessment reviewed and confirmed and Initial Vital Signs reviewed. Temperature: 99 F (37.2 C). Pulse: 110. Respiratory Rate: 20. Blood-pressure: 161/78. Oxygen Saturation: 97%. History of Present Illness: This is a 26-year-old female presenting with chief complaint of lower back pain. She been having issues for last 2 weeks after slipping and falling on ice 2 weeks ago. Complains of intermittent radiculopathy down her legs. Denies any bowel or bladder dysfunction, history of malignancy, fevers, IV drug use, weakness in her extremities, difficulty ambulate. Has been taking extra strength Tylenol with no relief. [facility] PATIENT NAME: VIKTORIA REYES [address] [facility] [address] [place] MEDICAL REC #: [id number] [place] [id number] EMERGENCY DEPARTMENT CHART EMERGENCY DEPARTMENT PHYSICIAN Has also tried icy hot. No history of back problems or surgeries. Review of Systems. Musculo-Skeletal: positive for Back Pain All other systems reviewed and negative.. Past History, Medications, Allergies, Social History and Family History reviewed in nurses note. Medications: Reviewed RN Note. Allergies: Reviewed RN Note Codeine(abd cramping), Penicillins(Unknown) Social History: Reviewed RN Note. Family History: Reviewed RN Note Physical Examination: Respiratory: No Resp Distress, Chest non-tender and Normal Breath Sounds Cardio-Vascular: No murmur, No rub and RRR Abdomen: Normal Bowel Sounds, Non-tender and Soft Back: No CVA tenderness; tender to palpation over L4/L5 spinous process Extremity: No edema Neurological: sensation intact throughout sacral and lumbar dermatomes 5 out of 5 strength testing in the following: Hip abduction, hip abduction, hip flexion, knee flexion, knee extension, plantar flexion, dorsiflexion, great toe extension/flexion Ambulates well without difficulty Skin: No rash, No Petechiae, Warm and Dry Psychological: Mood/Affect Normal and Normal Memory/Judgment Medical Decision Making Patient presents with back pain after slipping and falling 2 weeks ago. She does have point tenderness over L4/L5 so lumbar series will be obtained. patient has a normal neurologic exam with normal strength testing, reflexes, sensation. lumbar films interpreted by myself and attending physician show no signs of any fracture. I will recommend conservative therapy including anti-inflammatories, heat and follow up with PCP referral. [facility] PATIENT NAME: VIKTORIA REYES [address] [facility] [address] [place] MEDICAL REC #: [id number] [place] [address] EMERGENCY DEPARTMENT CHART EMERGENCY DEPARTMENT PHYSICIAN Clinical Impression: 1. acute lumbar pain status post fall Disposition: Discharged *Home. Condition: Good Direct patient care supervision and electronic documentation review by Keenan Horner on 06/28/2017 01:18. : [employer]Chart[employer] Event Time: 06/28/2017 00:35 Status: Signed [facility] Viktoria Reyes [[id number]] Attending Physician / / 1990 Addendum (V2b) Chart created at 06/28/2017 00:28 by Keenan Horner Chart closed at 06/28/2017 01:04 Entry in Emergency Department at 06/27/2017 23:32, departure at 06/28/2017 01:26 Patient Name: Viktoria Reyes Record Number: [id number] Date: 06/28/2017 00:28 Entered Department at: 06/27/2017 23:32 Patient Seen at: 06/27/2017 23:53 Chief Complaint:pt having lower back pain pt fell 2 weeks ago and injured back URINE , information as of 06/28/2017, 0:30 am UR HCG QUAL: Neg; UR SPEC GRAV: 1.022 Imaging Study Obtained: LUMBAR SPINE (3 VIEWS) Imaging Study Obtained: [facility] PATIENT NAME: VIKTORIA REYES [address] [facility] [address] [place] MEDICAL REC #: [id number] [place] [address] EMERGENCY DEPARTMENT CHART EMERGENCY DEPARTMENT PHYSICIAN LUMBAR SPINE (3 VIEWS) Radiology: Interpreted by me. 3 views of the lumbar spine demonstrate no acute process, specifically no acute fracture dislocation is visualized. Medical Decision Making This is a 26-year-old female who presents to the emergency room today for traumatic low back pain, she felt possibly one week ago and since then has been having low back pain, she denies any urinary symptoms, she does have tenderness to palpation in the midline of the low lumbar spine, differential diagnosis includes musculoskeletal back pain, lumbar compression fracture. Given the diagnostic possibilities, x-rays are obtained, the patient is treated with [place]. is negative. X-rays as above are negative. Clinical Impression: 1. low back pain after fall Disposition: Discharged *Home. Condition: Good MSE completed. I was the primary ED attending.. I confirm that I have evaluated the patient, reviewed the mid-level providers documentation, and discussed the evaluation, plan of care and disposition of the patient with the mid-level provider.. : Discharge Report Event Time: 06/28/2017 01:04 ===DISCHARGE REPORT=== : Bob Event Time: 06/28/2017 00:20 [facility] PATIENT NAME: VIKTORIA REYES [address] [facility] [address] [place] MEDICAL REC #: [id number] [place] [address] EMERGENCY DEPARTMENT CHART EMERGENCY DEPARTMENT PHYSICIAN : Bob Event Time: 06/28/2017 00:35 : Discharge Report Event Time: 06/28/2017 01:04 Status: Draft Reasons to Return to the ER: You must return to the ER for any new, worsening or changing symptoms, or if you feel more ill or sick in any way. This is the most important thing to remember. Follow-up: The care you received in the ER was given on an emergency basis only, and it is often not possible to completely treat or diagnose a problem in a single ER visit. You must see your follow-up doctor for a recheck within a week unless you receive instructions with a different timeframe for follow-up. Please follow all your discharge instructions. Medications: Unless the ER doctor tells you differently, you should take all your regular medications and any new medications prescribed today. Because it is not possible for the ER doctor to review all of your medication side effects or interactions, you must review possible side effects and interactions with your pharmacist when you get your prescriptions filled. EKG and Radiology Results: A fundraising specialist or radiologist will review any EKG or radiology results provided by the ER doctor. We will contact you if the results in the final EKG or radiology reports require a change in treatment. Culture Results: Cultures may have been ordered during your ER visit. We will contact you if the culture results require a change in treatment. [facility] PATIENT NAME: VIKTORIA REYES [address] [address] [place] MEDICAL REC #: [id number] [place] [address] EMERGENCY DEPARTMENT CHART EMERGENCY DEPARTMENT PHYSICIAN Referrals: Most referrals to specialists come from the on-call list You should make your regular doctor aware of any referrals before you schedule the appointment so that they are aware and can make suggestions DIAGNOSIS: acute lumbar pain status post fall INSTRUCTIONS: I recommend heat and anti-inflammatories for the next couple weeks and follow-up with your provided primary care referrals. Return to ER for any new or concerning symptoms. Your neck or back pain may have several possible causes. A contusion is the medical name for a bruise, which occurs when tissues under the skin are injured and begin to bleed. A fracture occurs when a bone breaks. A sprain happens when ligaments, the tissues that hold bones together, are stretched or torn. Spasm is the tightness and stiffness that occurs from muscle injury. A strain occurs when your neck or back is injured from excessive or improper use. Arthritis refers to pain that affects the joints as they wear down. The tissue that sits between and cushions the bones in your neck and back, called discs, can also break down or even get pushed out of position. This is called a herniated disc. When this occurs the herniated disc can also pinch the nerves in your neck or back. These pinched nerves can cause pain that runs down the legs (called sciatica) or the arms. It is not unusual to have more than one of these problems at the same time. The immediate treatment for most of these problems is the same:1) Rest your neck or back as much as possible for 24-48 hours but complete bed rest is not recommended; you should also avoid prolonged sitting or standing2) Apply ice packs or cool compresses for 15-20 minutes, 4-6 times per day, for 24-48 hours; a muscle spasm is different and should be treated with heat; heat may also be used on a strain, [facility] PATIENT NAME: VIKTORIA REYES [address] MEDICAL REC #: [id number] [place] [address] EMERGENCY DEPARTMENT CHART EMERGENCY DEPARTMENT PHYSICIAN especially after 24-48 hours of treatment with ice packs or cool compresses3) Use any crutches, walkers, splints, wraps or slings that were given to you; while using this medical equipment you cannot drive, operate machinery or do any activity in which you might hurt yourself4) To prevent stiffness, your neck or back should be slowly stretched and moved through its full range of motion at least 2-3 times per day5) Normal activity should be gradually increased as tolerated, taking care not to injure the area6) Minor pain may also be treated with gqmj-oef-nnrithz ibuprofen (if you are not ) or acetaminophen; you should avoid aspirin unless you are taking this medication for another reason7) You must use all of your regular medications plus all the medications that were given to you today If you had an x-ray, please remember that they are not 100% accurate in finding broken bones and many broken bones are not seen on the first set of x-rays. UNLESS THE ER DOCTOR GIVES YOU OTHER INSTRUCTIONS, YOU MUST SEE YOUR FOLLOW-UP DOCTOR FOR RECHECK WITHIN 2 TO 3 DAYS YOU MUST RETURN TO THE ER RIGHT AWAY FOR ANY OF THE FOLLOWING:Numbness in the genital or rectal areaNew or increasing pain or swellingFevers or chillsSigns of infection (increased redness, warmth, pain, swelling or drainage)New or increasing numbness or weakness in arms or legsLoss of bowel or bladder controlSigns of poor blood flow (cool temperature or pale color in an arm or leg) REFERRAL Vilma ([facility]) , Address: [address] [place] [address] [place] [address], , fax: Please call the above number to schedule a follow-up appointment. Vil[facility], Address: [address] [place] [address], [place] [address], , fax: [facility] PATIENT NAME: VIKTORIA REYES [address] [facility] [address] MEDICAL REC #: [id number] [place] [address] EMERGENCY DEPARTMENT CHART EMERGENCY DEPARTMENT PHYSICIAN Please call the above number to schedule a follow-up appointment. 2-3 days MEDICATIONS We have given you these prescriptions that you must fill and start taking: [place] 5 mg-325 mg tablet, count:10, Dose =1 tablet, count:10,3 days, count:10, q4-6h, count:10, Number of Refills = 0, count:10, Dx: Acute back pain ICD 10 M54.5, count:10 Motrin IB 200 mg tablet, count:30, Dose =2-3 tablets, count:30,Q6-8 hours with food, count:30, Number of Refills = 0, count:30 My signature below indicates that I have received and understand the oral instructions regarding my medical problem. I also acknowledge receipt of this written instruction sheet including a list of major tests and procedures ordered during my visit. I will arrange for follow-up care as indicated by these instructions and referrals. This signed original will be kept in my medical record. Your signature below indicates consent for Case Management to contact [facility] in an effort to meet your ongoing healthcare needs. This will allow forcontinuity of care once you leave the Emergency Department. This exchange of informationwill include, but not be limited to, disclosure of your patient information and possible release of records. 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ell MEDICAL REC #: [id number] [place] [address] EMERGENCY DEPARTMENT CHART EMERGENCY DEPARTMENT PHYSICIAN Registration Date: 23:32 06/27/2017 Address: [address] [facility] Address: [place] [address] REGISTRATION ED Number: [id number] Marital Status: M Financial Class: [facility] TRIAGE Priority: 4 - Semi Urgent Complaint: Lower Back Pain Stated Complaint: pt having lower back pain pt fell 2 weeks ago and injured back Arrival Date: 06/27/2017 23:32 Triage Date: 06/27/2017 23:36 Mode of Arrival: *Privately Owned Vehicle Transfer From: * Home WC: N Language: [place] Islander Transport: Ambulatory/Walk In BED D49 In: 06/27/2017 23:40:51 06/27/2017 23:40:51 KASD D49 (Removed From) Out: 06/28/2017 01:26:03 06/28/2017 01:26:03 DMPA PROVIDERS SAHRA MTZ Provider Contact: 06/27/2017 23:53:32 CJHA End: MD Keenan Horner Provider Contact: 06/27/2017 23:53:35 ADB End: [facility] PATIENT NAME: VITKORIA REYES [address] [facility] [address]ell MEDICAL REC #: [id number] [place] [address] EMERGENCY DEPARTMENT CHART EMERGENCY DEPARTMENT PHYSICIAN ENRIQUE GEORGES Provider Contact: 06/27/2017 23:54:49 [facility] End: TRIAGE HISTORY ALLERGIES Allergic To: Codeine - abd cramping 06/27/2017 23:40 KASD Allergic To: Penicillins - Unknown 06/27/2017 23:40 KASD ILLNESS Illness: *None 06/27/2017 23:40 KASD PAST SURGERY HIST Surgery: Tandamp;A -age- 0206/27/2017 23:40 KASD Surgery: Tubes in ears 06/27/2017 23:40 KASD Surgery: Cholecystectomy 06/27/2017 23:40 KASD PAST SOCIAL HIST Social History: Communicates without difficulty 06/27/2017 23:40 KASD Social History: Lives with family or significant other 06/27/2017 23:40 KASD Social History: Smoker-None 06/27/2017 23:40 KASD Social History: Recreational Drugs - None 06/27/2017 23:40 KASD Social History: Alcohol - Occasional- 06/27/2017 23:40 KASD Social History: Denies Domestic Violence 06/27/2017 23:40 KASD [facility] PATIENT NAME: VIKTORIA REYES [address] [facility] [address]ell MEDICAL REC #: [id number] [place] [address] EMERGENCY DEPARTMENT CHART EMERGENCY DEPARTMENT PHYSICIAN Social History: Denies thoughts of self harm. 06/27/2017 23:40 KASD Social History: Have you traveled in the past month? Where no 06/27/2017 23:40 KASD PAST GATE GUARD HIST Social History: Last Menstrual Period 05/03/17 06/27/2017 23:40 KASD IMMUNIZATIONS Immunization: Flu Vaccine-no 06/27/2017 23:40 KASD NURSING ASSESSMENT ASSESSMENT NOTES 06/28/2017 00:13 Pt states that she fell on ice about a week ago, and states that she has had low back pain ever since. Pt states that pain has been increasing over the weekend as she is getting sick and has been coughing a lot which exacerbates the pain. Pt complains of pain radiating down the left leg. Pt is aandamp;o x4. Pts skin w/d. Breathing even and unlabored. MSPs intact. 06/28/2017 00:14 [facility] TREATMENT 06/28/2017 00:12 Hourly Rounding - Rounding 06/28/2017 00:13 CNH Elimination/Toileting N Position Comfortable Y Safe Environment Y 06/28/2017 00:12 Staff/ Patient Interaction - Call light placed within reach. 06/28/2017 00:13 CNH 06/28/2017 00:12 Staff/ Patient Interaction - Introduced self and assessed patients needs. 06/28/2017 00:13 CN [facility] PATIENT NAME: VIKTORIA REYES [address] [facility] [address] MEDICAL REC #: [id number] [place] [address] EMERGENCY DEPARTMENT CHART EMERGENCY DEPARTMENT PHYSICIAN 06/28/2017 00:12 Primary DOC Guide - A. 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 Fall Risk Assessment (Age andlt;65) 06/28/2017 00:13 CN History of Falling in last 3 months? Yes (1) Confusion or Disorientation? No (0) Intoxicated or Sedated? No (0) Impaired Gait? No (0) Mobility Assist Device Used? No (0) Altered Elimination? No (0) Fall Risk Score 1-2 Points = Low Risk. 3-4 Points = Moderate Risk. 5 or more points = High Risk. 0 Fall Score Greater andgt;= 3? No 06/28/2017 00:12 Primary DOC Guide - D. Psychosocial Assessment 06/28/2017 00:13 CN Over the Last 2 weeks, how often have you had little interest or pleasure in doing things (0) Not at All Is Psychosocial Assessment Score 3 or more? If score is 3 or more please consult ED Navigator! No Total Psychosocial Assessment Score 0 Over the last 2 weeks, how often have you been feeling down, depressed or hopeless (0) Not at All 06/28/2017 00:12 Primary DOC Guide - E. Family Violence Assessment 06/28/2017 00:13 CNH Within the past year, has anyone ever pushed, shoved, slapped, choked, hit, punched or kicked you: No Within the past year, has anyone ever pressured or forced you to have sexual activities when you did not want to: No Do you feel safe and well cared for: Yes Is there a partner from a previous or current relationship that is making you feel unsafe now: No [facility] PATIENT NAME: VIKTORIA REYES Isai [address] [facility] [address] MEDICAL REC #: [id number] [place] [address] EMERGENCY DEPARTMENT CHART EMERGENCY DEPARTMENT PHYSICIAN 06/28/2017 00:43 Hourly Rounding - Rounding 06/28/2017 00:44 CNH Elimination/Toileting N Position Comfortable Y Safe Environment Y Assessment Note pt in room with family at bedside, denies needs 06/28/2017 01:25 Admit/Discharge - *Discharge instructions/tests andamp; procedures/med list reviewed and provided; prescriptions given to patient 06/28/2017 01:25 DMPA Notes: no further questions from the pt 06/28/2017 01:25 Admit/Discharge - Ambulated with steady gait home 06/28/2017 01:25 DMPA Notes: pt refused wheel chair MEDICATIONS IV I AND O VITALS VS-ROUTINE Time: 06/27/2017 23:36 B/P: 161/78 - Right Upper Arm - Sitting - Machine Pulse: 110 - Monitor Resp: 20 Sa02: 97 Room Air Temp: 99.00 F - Oral 06/27/2017 23:40 KASD VS-Pain Time: 06/27/2017 23:36 Pain Level: 9 06/27/2017 23:40 KASD VS-GCS Time: 06/27/2017 23:36 Visual: 4 Verbal: 5 Motor: 6 GCS Total: 15 06/27/2017 23:40 KASD VS-HT/WT Time: 06/27/2017 23:36 Ht: 64 in. Stated Weight: 398 lbs Stated 06/27/2017 23:40 KASD VS-Visual Time: 06/27/2017 23:36 06/27/2017 23:40 KASD VS-FHT Time: 06/27/2017 23:36 06/27/2017 23:40 KASD [facility] PATIENT NAME: VIKTORIA REYES [address] [facility] [address] MEDICAL REC #: [id number] [place] [address] EMERGENCY DEPARTMENT CHART EMERGENCY DEPARTMENT PHYSICIAN VS-Notes Time: 06/27/2017 23:36 map 108 06/27/2017 23:40 KASD VS-ROUTINE Time: 06/28/2017 01:25 B/P: 154/74 - Right Upper Arm - Sitting - Machine Pulse: 90 - Monitor Resp: 18 Sa02: 97 Room Air 06/28/2017 01:25 DMPA VS-Pain Time: 06/28/2017 01:25 06/28/2017 01:25 DMPA VS-GCS Time: 06/28/2017 01:25 06/28/2017 01:25 DMPA VS-HT/WT Time: 06/28/2017 01:25 06/28/2017 01:25 DMPA VS-Visual Time: 06/28/2017 01:25 06/28/2017 01:25 DMPA VS-FHT Time: 06/28/2017 01:25 06/28/2017 01:25 DMPA VS-Notes Time: 06/28/2017 01:25 map 100 06/28/2017 01:25 DMPA ORDERS Discharge patient 06/28/2017 01:16 N/A Ordered: 06/28/2017 01:04 By . Other Reviewed: 06/28/2017 01:16 By . Other LS-spine series 06/28/2017 01:03 N/A Ordered: 06/28/2017 00:16 By CIPRIANO MTZ Completed Time: 06/28/2017 01:03 By CIPRIANO MTZ Indication: Lower Back Pain Question: Are you or think you might be ? Answer: PENDING Question: How is patient transported? (A = Ambulatory, B = Bed, C = Carry, CR = Crib, P = Portable, S = Stretcher, W = Wheelchair, X = Wide Wheelchair, XT = Trauma X RM17 (ED Only)) Answer: STRETCHER (urine) 06/28/2017 00:38 N/A Ordered: 06/28/2017 00:14 By CIPRIANO MTZ Completed Time: 06/28/2017 00:38 By CIPRIANO MTZ Noted Time: 06/28/2017 00:29 CNH Results Time: 06/28/2017 00:38 [place] (PO)*(5/325) DOSE:1 tabs [facility] PATIENT NAME: VIKTORIA REYES [address] [facility] [address] MEDICAL REC #: [id number] [place] [address] EMERGENCY DEPARTMENT CHART EMERGENCY DEPARTMENT PHYSICIAN PO 06/28/2017 00:19 N/A Ordered: 06/28/2017 00:11 By CIPRIANO MTZ Completed Time: 06/28/2017 00:19 By CIPRIANO MTZ Noted Time: 06/28/2017 00:13 [facility] LS-spine series 06/28/2017 00:14 N/A Ordered: 06/28/2017 00:12 By CIPRIANO MTZ Indication: Lower Back Pain Question: Are you or think you might be ? Answer: NO Question: How is patient transported? (A = Ambulatory, B = Bed, C = Carry, CR = Crib, P = Portable, S = Stretcher, W = Wheelchair, X = Wide Wheelchair, XT = Trauma X RM17 (ED Only)) Answer: STRETCHER Cancelled: 06/28/2017 00:14 CJHA Cancelled Reason: want to wait for urine preg DISCHARGE Diagnosis: acute lumbar pain status post fall 06/28/2017 01:04 Disposition: Time: 06/28/2017 01:04 Discharge Time: 06/28/2017 01:26 Type: Discharge Condition: Stable for admission/discharge/transfer after emergency evaluation/treatment Category: *NOT APPLICABLE Referral: 06/28/2017 01:04 Admit Physician: . Other PRESCRIPTIONS Motrin IB 200 mg tablet 06/28/2017 00:16 CJHA SI-3 Q6-8 hours with food Dispense: 30 / Refills: [place] 5 mg-325 mg tablet 06/28/2017 00:16 CJHA SI ta q4-6h for 3 days Additional Instructions: Dx: Acute back pain ICD 10 M54.5 Dispense: 10 / Refills: [facility] PATIENT NAME: VIKTORIA REYES [address] [facility] [address] MEDICAL REC #: [id number] [place] [address] EMERGENCY DEPARTMENT CHART EMERGENCY DEPARTMENT PHYSICIAN CHARGES SIGNATURE [facility] GABRIELA GEORGES RN [facility] Keenan Horner MD Lucrecia MTZ PA-C CJHA [facility] PATIENT NAME: VIKTORIA REYES [facility] [address] MEDICAL REC #: [id number] [place] [address] EMERGENCY DEPARTMENT CHART EMERGENCY DEPARTMENT PHYSICIAN URINE Collected: 06/28/2017 Status: F Source: [facility] 12:30 AM [facility] REPOSITORY Order Comment: [place]: M TYPE CODE TESTS RESULT OUT OF RANGE REFERENCE UNITS LAB L600.31360 NEGATIVE Normal UR NEGATIVE HCG QUAL LAB [id number] 1.005-1.030 Normal UR 1.022 SPEC GRAV Performed By: #### L600.36452 #### [facility] [address] [phone] LUMBAR SPINE 2 OR 3 Observed: 06/28/2017 Status: F Source: [facility] VWS 12:16 AM [facility] REPOSITORY LUMBAR SPINE 2 OR 3 VWS Ordering Physician: Cipriano Mtz 06/28/2017 12:16 AM LUMBAR SPINE AP AND LATERAL VIEWS Clinical Statement: Lower back pain Comparison: None FINDINGS: There are five lumbar-type vertebra. No fracture or subluxation is seen. Pedicles are maintained. There is no spondylolisthesis. There is mild disk space narrowing at L5-S1. IMPRESSION: No acute osseous abnormality. ---- Electronic Signature on File ---- Signed By: Moriah Nair MD [email or web address] Dictated: 06/28/2017 7:38 AM Signed: 06/28/2017 7:38 AM Reported By: MORIAH NAIR M.D. Signed By: MORIAH NAIR M.D. ALLERGIES ALLERGIES DATE TYPE / CODE NAME / CODE REACTION SEVERITY SOURCE 05/30/2018 Drug Penicillins/F001 Unknown Unknown [place] Allergy/[id number]( 482647(RXNORM) [facility] Repository 05/30/2018 Drug codeine/[id number] Unknown Unknown [place] Allergy/743438703( 50(RXNORM) [facility] Repository 05/30/2018 Drug hydrocodone/F006 Unknown Unknown Kay Allergy/210210397( 202594(RXNORM) [facility] Repository 05/30/2018 Drug acetaminophen/F0 Unknown Unknown Kay Allergy/115982623( 48946978(RXNORM) [facility] Repository 05/30/2018 Drug latex/[id number] Rash Unknown Kay Allergy/303904533( (RXNORM) [facility] Repository 10/25/2017 Miscellaneous pennicillin Unknown Unknown [place] Allergy/490175808( [facility] Repository 10/25/2017 Miscellaneous vicoden Unknown Unknown Kay Allergy/629277683( [facility] Hospital Repository ENCOUNTERS ENCOUNTERS ADMIT/DISCHARGE ACCOUNT ADMITTING ENCOUNTER LOCATION SOURCE NUMBER CLASS 06/02/2018 [id number] Ambulatory Building:[facility] Repository 05/31/2018 [id number] Ambulatory BMSBuilding:B [place] MS.[facility] Repository 05/30/2018 [id number] Ambulatory [facility] Hospital ing:LABSPEC Repository 05/30/2018/05/30/19 [id number] Ambulatory BMSBuilding:B [place] 19 MS.[facility] Repository 05/27/2018/05/27/19 [id number] [place] Hospital ing:WP[facility]TRoom Repository : WP013 05/26/2018 [id number] Ambulatory Building:[facility] Repository 05/23/2018/05/23/19 [id number] Ambulatory BMSBuilding:B [place] 19 MS.[facility] Repository 05/19/2018/05/19/19 [id number] Ambulatory Building:[address] Repository 05/16/2018 [id number] Ambulatory [facility] Hospital ing:LABSPEC Repository 05/16/2018/05/16/19 [id number] Ambulatory BMSBuilding:B [place] 19 MS.[facility] Repository 05/12/2018 [id number] Ambulatory Building:[facility] Repository 05/05/2018/05/05/20 [id number] Ambulatory BMSBuilding:B [place] 18 MS.[facility] Repository 05/05/2018 [id number] Ambulatory Building:[facility] Repository 04/28/2018 [id number] Ambulatory Building:[facility] Repository 04/21/2018 [id number] Ambulatory Building:[facility] Repository 04/21/2018/04/21/20 [id number] Ambulatory BMSBuilding:B [place] 18 [facility] Repository 04/21/2018/04/21/20 [id number] Ambulatory BMSBuilding:B [place] 18 [facility] Repository 04/19/2018 [id number] Ambulatory [facility] Hospital ing:NS Repository 04/07/2018/04/07/20 [id number] Ambulatory BMSBuilding:B [place] 18 [facility] Repository 04/04/2018/04/04/20 [id number] Ambulatory [address] Hospital ing:WPOUTRoom Repository : WP012 03/28/2018 [id number] Ambulatory BMSBuilding:B [place] MS.CF.[facility] Repository 03/27/2018/03/27/20 [id number] Ambulatory [address] Hospital ing:WPOUTRoom Repository : WP013 03/21/2018 [id number] Ambulatory [facility] Hospital ing:LAB Repository 03/21/2018/03/21/20 [id number] Ambulatory BMSBuilding:B [place] 18 [facility] Repository 03/21/2018/03/21/20 [id number] Ambulatory Building:[address] Repository 03/21/2018/04/08/20 [id number] Ambulatory [address] Hospital ing:NS Repository 02/21/2018/02/22/20 [id number] Ambulatory BMSBuilding:B [place] 18 [facility] Repository 02/21/2018 [id number] Ambulatory Building:[facility] Repository 01/31/2018 [id number] Ambulatory Building:[facility] Repository 01/24/2018/01/25/20 [id number] Emergency [address] Hospital ing:ED Repository 01/19/2018/01/20/20 [id number] Ambulatory Building:[address] Repository 01/17/2018 [id number] Ambulatory [facility] Hospital ing:US Repository 01/17/2018/01/18/20 [id number] Ambulatory BMSBuilding:B [place] 18 [facility] Repository 12/13/2017/12/14/19 [id number] Ambulatory BMSBuilding:B [place] 18 [facility] Repository 11/23/2017/11/24/19 [id number] Emergency [place] 18 [facility] ing:ED Repository 10/29/2017 [id number] Ambulatory [facility] ing:OPUS Repository 10/25/2017 [id number] Ambulatory [facility] ing:LAB Repository 10/12/2017 [id number] Ambulatory [facility] ing:LABSPEC Repository 10/12/2017/10/13/19 [id number] Ambulatory BMSBuilding:B [place] 18 [facility] Repository 10/12/2017 [id number] Ambulatory [facility] ing:US Repository 06/27/2017 [id number] Emergency [facility] [place] g:TapanED Repository PAYERS PAYERS ENCOUNTER GUARANTOR PAYER SUBSCRIBER SOURCE 06/02/2018 VIKTORIA Primary VIKTORIA [facility] SMITHDOB: Insurance:Jerrell KAUFFMAN: [facility] [id number] y Number: [id number] [place] [address] [id number] [address] [place] [address] Date: [place], [place] [address]Xcr: [phone]) [phone] (HP) 05/31/2018 VIKTORIA D Primary VIKTORIA D Kay [id number] Insurance:RONAK BENITO: [facility] Number: [id number] [place], [place] [id number] Repository [address]Jep: ([phone]) Date:6326-26-22FJ [phone] (HP) [address] [place] [address]GA: 05/31/2018 Secondary NOT GIVENUNK Kay Insurance:SELF PAY [facility] Number: Effective Repository Date:2018-05-31 05/30/2018 VIKTORIA D Primary VIKTORIA D Kay [id number] Insurance:RONAK REYESB: [facility] Number: [id number] [place], [place] [id number] Repository 20[address]Uog: ([phone]) Date:9205-89-11MW [phone] (HP) [address] [place] [address] 87[address]BU: 05/30/2018 Secondary NOT GIVENUNK [place] Insurance:SELF PAY [facility] Number: Effective Repository Date:2018-05-30 05/30/2018 VIKTORIA D Primary VIKTORIA D [place] [id number] Insurance:RONAK REYESB: [facility] Number: [id number] [place], [place] [id number] Repository [address]Ppu: [phone]) Date:9789-49-53NO [phone] () [address] [place] [address] 915[address]BE: 05/30/2018 Secondary NOT GIVENUNK [place] Insurance:SELF PAY [facility] Number: Effective Repository Date:2018-05-30 05/27/2018 VIKTORIA D Primary VIKTORIA D [place] [id number] Insurance:RONAK BENITOB: [facility] Number: [id number] [place], [place] [id number] Repository [address]Jvm: ([phone]) Date:3657-44-79NK [phone] () [address] [place] [address] 438[address]FL: 05/27/2018 Secondary NOT GIVENUNK [place] Insurance:SELF PAY [facility] Number: Effective Repository Date:2018-05-27 05/26/2018 VIKTORIA Primary VIKTORIA [facility] SMITHDOB: Insurance:Jerrell KAUFFMAN: [facility] [id number] y Number: [id number] [place] [address] [id number] [address] [place] [address] Date: [place], [place] [address]Wgi: ([phone]) [phone] (HP) 05/23/2018 VIKTORIA D Primary VIKTORIA D Kay [id number] Insurance:RONAK BENITOB: [facility] Number: [id number] [place], [place] [id number] Repository [address]Hio: ([phone]) Date:7277-31-51NL [phone] () [address] [place] [address] 52645AS: 05/23/2018 Secondary NOT GIVENUNK [place] Insurance:SELF PAY [facility] Number: Effective Repository Date:2018-05-23 05/19/2018 VIKTORIA Primary VIKTORIA [facility] SMITHDOB: Insurance[facility] HospitalD[facility]: Hospital y Number: [id number] Repository [place] [id number] [address], [place] Date: [place], [place] [address]Xcy: [phone]) [phone] (HP) 05/16/2018 VIKTORIA D Primary VIKTORIA D [place] [id number] Insurance[facility]: [facility] Number: [id number] [place], [place] [id number] Repository [address]Ayq: (054) Date:6440-48-54IF [phone] () [address] [place] [address] 04438BV: 05/16/2018 Secondary NOT GIVENUNK [place] Insurance:SELF PAY [facility] Number: Effective Repository Date:2018-05-16 05/16/2018 VIKTORIA D Primary VIKTORIA D [place] [id number] Insurance:[facility]: [facility] Number: [id number] [place], [place] [id number] Repository 628[address]Bop: (031) Date:2865-06-62SQ [phone] () [address] [place] [address] 49812JG: 05/16/2018 Secondary NOT GIVENUNK [place] Insurance:SELF PAY [facility] Number: Effective Repository Date:2018-05-16 05/12/2018 VIKTORIA Primary VIKTORIA Her Children's SMITHDOB: Insurance[facility]olEl[facility] HospitalDOB: Hospital y Number: [id number] Repository [place] [id number] [address], [place] Date: [place], [place] [address]Msk: ([phone] (HP) 05/05/2018 VIKTORIA D Primary VIKTORIA D Kay [id number] Insurance:[facility]: [facility] Number: [id number] [place], [place] [id number] Repository 523[address]Kpi: (330) Date:4982-41-25VT [phone] (HP) [address] [place] [address] 49384TQ: 05/05/2018 Secondary NOT GIVENUNK Kay Insurance:SELF PAY [facility] Number: Effective Repository Date:2018-05-05 05/05/2018 VIKTORIA Primary VIKTORIA Taina Children's SMITHDOB: Insurance:[facility] HealthB: [facility] y Number: [id number] Repository [place] [id number] [address], [place] Date: [place], [place] [address]Wdi: [phone] (HP) 04/28/2018 VIKTORIA Primary VIKTORIA Browning Children[facility] SMITHDOB: Insurance:Welia HealthB: [facility] y Number: [id number] Repository [place] [id number] [address], [place] Date: [place], [place] [address]Tas: [phone] (HP) 04/21/2018 VIKTORIA Primary VIKTORIA Taina Children's SMITHDOB: Insurance:Welia HealthB: [facility] y Number: [id number] Repository [place] [id number] [address], [place] Date: [place], [place] [address]Fzt: [phone] (HP) 04/21/2018 VIKTORIA D Primary VIKTORIA D Kay [id number] Insurance:[facility] Number: [id number] [place], [place] [id number] Repository [address]Qqw: (330) Date:5026-60-57ZK [phone] (HP) [address] [place] [address] 48921TX: 04/21/2018 Secondary NOT GIVENUNK [place] Insurance:SELF PAY [facility] Number: Effective Repository Date:2018-04-21 04/21/2018 VIKTORIA D Primary VIKTORIA D [place] [id number] Insurance:RONAK BENITOB: [facility] Number: [id number] [place], [place] [id number] Repository [address]Awj: (333) Date:1103-14-67YJ [phone] () [address] [place] [address] 86666SA: 04/21/2018 Secondary NOT GIVENUNK [place] Insurance:SELF PAY [facility] Number: Effective Repository Date:2018-04-21 04/19/2018 VIKTORIA D Primary VIKTORIA D [place] [id number] Insurance:RONAK BENITOB: [facility] Number: [id number] [place], [place] [id number] Repository [address]Syd: (330) Date:5122-01-40BC [phone] () [address] [place] [address] 40811MP: 04/19/2018 Secondary NOT GIVENUNK Kay Insurance:SELF PAY [facility] Number: Effective Repository Date:2018-04-09 04/07/2018 VIKTORIA D Primary VIKTORIA D Kay [id number] Insurance:RONAK BENITOB: [facility] Number: [id number] [place], [place] [id number] Repository [address]66[address]Ott: (998) Date:6853-45-67DT [phone] () [address] [place] [address] 94964HK: 04/07/2018 Secondary NOT GIVENUNK [place] Insurance:SELF PAY [facility] Number: Effective Repository Date:2018-04-07 04/04/2018 VIKTORIA D Primary VIKTORIA D Kay [id number] Insurance:RONAK BENITOB: [facility] Number: [id number] [place], [place] [id number] Repository 29[address]Kii: (330) Date:1116-41-72TW [phone] (HP) [address] [place] [address] 28026JL: 04/04/2018 Secondary NOT GIVENUNK Kay Insurance:SELF PAY [facility] Number: Effective Repository Date:2018-04-04 03/28/2018 VIKTORIA D Primary NOT GIVENUNK [place] [id number] Insurance:SELF PAY [place] Number: Effective Repository [phone]: (330) Date:2018-03-28-7793 (HP) 03/27/2018 VIKTORIA D Primary VIKTORIA D Kay [id number] Insurance:RONAK BENITOB: [facility] Number: [id number] [place], [place] [id number] Repository [address]Ewh: (330) Date:9833-15-01AR [phone] () [address] [place] [address] 81457ZT: 03/27/2018 Secondary NOT GIVENUNK [place] Insurance:SELF PAY [facility] Number: Effective Repository Date:2018-03-27 03/21/2018 VIKTORIA D Primary VIKTORIA D [place] [id number] Insurance:RONAK BENITOB: [facility] Number: [id number] [place], [place] [id number] Repository [address]15[address]Bsf: (052) Date:6934-22-27FP [phone] (HP) [address] [place] [address] 02827AU: 03/21/2018 Secondary NOT GIVENUNK Kay Insurance:SELF PAY [facility] Number: Effective Repository Date:2018-03-21 03/21/2018 VIKTORIA D Primary VIKTORIA D [place] [id number] Insurance:RONAK BENITOB: [facility] Number: [id number] [place], [place] [id number] Repository 94[address]Pth: (330) Date:4086-23-35JZ [phone] (HP) [address] [place] [address] 48280XR: 03/21/2018 Secondary NOT GIVENUNK [place] Insurance:SELF PAY [facility] Number: Effective Repository Date:2018-03-21 03/21/2018 VIKTORIA Primary VIKTORIA Her Children's SMITHDOB: Insurance:[facility] CENTERBennettCox SouthB: [facility] [id number] y Number: [id number] Repository [place] [id number] [address], [place] Date: [place], [place] [address]Nqy: (330) [phone] (HP) 03/21/2018 VIKTORIA D Primary VIKTORIA D [place] [id number] Insurance:[facility]ITALB: [facility] Number: [id number] [place], [place] [id number] Repository 62856Uju: (889) Date:0188-44-22VS [phone] () [address] [place] [address] 97535KJ: 03/21/2018 Secondary NOT GIVENUNK [place] Insurance:SELF PAY [facility] Number: Effective Repository Date:2018-03-18 02/21/2018 VIKTORIA D Primary VIKTORIA D Kay [id number] Insurance:SIMONS ERICB: [facility] Number: [id number] [place], [place] [id number] Repository 267[address]Zaj: (485) Date:8002-78-02MR [phone] () [address] [place] [address] 33990ZR: 02/21/2018 Secondary NOT GIVENUNK Kay Insurance:SELF PAY [facility] Number: Effective Repository Date:2018-02-09 02/21/2018 VIKTORIA Primary VIKTORIA Her Children's SMITHDOB: Insurance:[facility] CENTERNIGELSt. Mary Medical CenterB: Hospital [id number] y Number: [id number] [facility] [id number] [address], [place] Date: [place], [place] [address]Kmq: (330) [phone] () 01/31/2018 VIKTORIA Primary VIKTORIA Taina Children's SMITHDOB: Insurance:[facility]olEllett [facility] HospitalDOB: Hospital y Number: [id number] Repository [place] [id number] [address], [place] Date: [place], [place] [address]Hsf: (330) [phone] (HP) 01/24/2018 VIKTORIA D Primary VIKTORIA D Kay [id number] Insurance:RONAK BENITOB: [facility] Number: [id number] [place], [place] [id number] Repository 675[address]Yfe: 330) Date:2712-38-15HC [phone] () [address] [place] [address] 51627PO: 01/24/2018 Secondary NOT GIVENUNK [place] Insurance:SELF PAY [facility] Number: Effective Repository Date:2018-01-24 01/19/2018 VIKTORIA Primary VIKTORIA [facility] SMITHDOB: Insurance:MOLNIGELPolCox SouthB: Hospital y Number: [id number] Repository [place] [id number] [address], [place] Date: [place], [place] [address]Ekx: (330) [phone] (HP) 01/17/2018 VIKTORIA D Primary VIKTORIA D [place] [id number] Insurance:RONAK BENITOB: [facility] Number: [id number] [place], [place] [id number] Repository 95[address]Sag: (330) Date:3246-47-87XE [phone] (HP) [address] [place] [address] 06425RA: 01/17/2018 Secondary NOT GIVENUNK [place] Insurance:SELF PAY [facility] Number: Effective Repository Date:2017-12-13 01/17/2018 VIKTORIA D Primary VIKTORIA D [place] [id number] Insurance:RONAK REYESB: [facility] Number: [id number] [place], [place] [id number] Repository 992[address]Rwx: (330) Date:0741-87-37KZ [phone] () [address] [place] [address] 09351NR: 01/17/2018 Secondary NOT GIVENUNK Kay Insurance:SELF PAY [facility] Number: Effective Repository Date:2017-12-13 12/13/2017 VIKTORIA D Primary VIKTORIA D [place] [id number] Insurance:RONAK BENITOB: [facility] Number: [id number] [place], [place] [id number] Repository 55[address]Omy: (330) Date:7499-72-13QV [phone] () [address] [place] [address] 07141XB: 12/13/2017 Secondary NOT GIVENUNK [place] Insurance:SELF PAY [facility] Number: Effective Repository Date:2017-12-13 11/23/2017 VIKTORIA D Primary VIKTORIA D Kay [id number] Insurance:RONAK KAUFFMAN: [facility] Number: [id number] [place], [place] [id number] Repository 10873Gle: (330) Date:2977-24-42IC [phone] () [address] [place] [address] 86334ZK: 11/23/2017 Secondary NOT GIVENUNK Kay Insurance:SELF PAY [facility] Number: Effective Repository Date:2017-11-23 10/29/2017 VIKTORIA D Primary VIKTORIA D [place] [id number] Insurance:RONAK KAUFFMAN: [facility] Number: [id number], [place] [id number] Repository 035[address]Wwd: 330) Date:9599-60-52LW [phone] () [address] [place] [address] 83557BX: 10/29/2017 Secondary NOT GIVENUNK [place] Insurance:SELF PAY [facility] Number: Effective Repository Date:2017-10-19 10/25/2017 VIKTORIA D Primary VIKTORIA D Kay [id number] Insurance:RONAK KAUFFMAN: [facility] Number: [id number], [place] [id number] Repository 37[address]Lkn: (330) Date:6471-02-81TA [phone] () [address] [place] [address] 80525OW: 10/25/2017 Secondary NOT GIVENUNK [place] Insurance:SELF PAY [facility] Number: Effective Repository Date:2017-10-25 10/12/2017 VIKTORIA D Primary VIKTORIA D [place] [id number] Insurance:MOLINAPolic SMITHDOB: Community TESSA y Number: [id number], [place] [id number] Repository 137[address]Usw: (330) Date:7839-18-77RT [phone] () [address] [place] [address] 48132BG: 10/12/2017 Secondary NOT GIVENUNK [place] Insurance:SELF PAY [facility] Number: Effective Repository Date:2017-10-12 10/12/2017 VIKTORIA D Primary VIKTORIA D [place] [id number] Insurance:SIMONS SMITHDOB: Community [place] MCDPolorange city area health system Number: [id number], [place] [id number] Repository 16585Rue: (330) Date:3879-19-96EK [phone] () [address] [place] [address] 05856FA: 10/12/2017 Secondary NOT GIVENUNK Kay Insurance:SELF PAY [facility] Number: Effective Repository Date:2017-10-21 10/12/2017 VIKTORIA D Primary VIKTORIA D Kay [id number] Insurance:MOLINAPolic SMITHDOB: Community [place] y Number: [id number], [place] [id number] Repository 03391Dpp: (330) Date:5439-97-19DS [phone] () [address] [place] [address] 84145QR: 10/12/2017 Secondary NOT GIVENUNK [place] Insurance:SELF PAY [facility] Number: Effective Repository Date:2017-10-12 06/27/2017 VIKTORIA [facility]IS[facility] [id number] Insurance:MOLINA JOHNSONUNK [facility] [place] MEDICAIDPolicy Repository [place], [place] Number: [address]Lgk: (764) [id number] [phone] () Date:7945-65-39ZC [address] [place] [address] 17871VD:
== END 2018-05-27 22:35 | disposition home or self-care (01) ==
LOC: WPOUT 21:13 → WP 21:14
PROVIDERS: Family Provider Family Medicine; PCP Family Medicine; Referring Provider Obstetrics & Gynecology; Visit Provider Obstetrics & Gynecology
DX: O36.8190 Decreased fetal movements, unspecified trimester, not applicable or unspecified (principal); O99.210 Obesity complicating pregnancy, unspecified trimester; E66.9 Obesity, unspecified; Z3A.00 Weeks of gestation of pregnancy not specified
CPT/HCPCS: 59025; 59050; 99218; G0378

== ENCOUNTER → 2018-05-30 17:50 | Outpatient (CLI) | payer MEDICAID, SELFPAY ==
[2018-05-30 11:29] VITALS: BMI 65.0
[2018-05-30 18:29] LABS: Protein, Urine (Random) 67.7 mg/dL (<11.9); Protein:Creat Ratio 244 mg/g CRE (0-200)
--- OUTSIDE RECORDS SUMMARY | 2018-08-02 05:16 | XMS RPT_ITS ---
:1990 Author Organization OHIP Support Name Relationship Address Phone KRISTOPHER REYES Unavailable [address] + [place] [address] [employer] Unavailable [address] + [address] [place] [address] KRISTOPHER REYES Unavailable [address] + [place] [address] [employer] Unavailable [address] + [address] [place] [address] KRISTOPHER REYES Unavailable [address] + [place] [address] [employer] Unavailable [address] + [address] [place] [address] KRISTOPHER REYES Unavailable [address] + [place] [address] [employer] Unavailable [address] + [address] [place] [address] KRISTOPHER REYES Unavailable [address] + [place] [address] KRISTOPHER REYES Unavailable [address] + [place] [address] [employer] Unavailable [address] + [address] [place] [address] KRISTOPHER REYES Unavailable [address] + [place] [address] KRISTOPHER REYES Unavailable [address] + [place] [address] [employer] Unavailable [address] + [address] [place] [address] KRISTOPHER REYES Unavailable [address] + [place] [address] [employer] Unavailable [address] + [address] [place] [address] REYES, KRISTOPHER Unavailable [address] + [place] [address] REYES, KRISTOPHER Unavailable [address] + [place] [address] [employer] Unavailable [address] + [address] [place] [address] REYES, KRISTOPHER Unavailable [address] + [place] [address] ERIC KRISTOPHER Unavailable [address] + [place] [address] ERIC KRISTOPHER Unavailable [address] + [place] [address] ERIC KRISTOPHER Unavailable [address] + [place] [address] [employer] Unavailable [address] + [address] [place] [address] ERIC KRISTOPHER Unavailable [address] + [place] [address] [employer] Unavailable [address] + [address] [place] [address] ERIC, KRISTOPHER Unavailable [address] + [place] [address] [employer] Unavailable [address] + [address] [place] [address] ERIC KRISTOPHER Unavailable [address] + [place] [address] [employer] Unavailable [address] + [address] [place] [address] ERIC KRISTOPHER Unavailable [address] + [place] [address] [employer] Unavailable [address] + [address] [place] [address] ERIC KRISTOPHER Unavailable [address] + [place] [address] [employer] Unavailable [address] + [address] [place] [address] KIRSTOPHER REYES Unavailable [address] + [place] [address] [employer] Unavailable [address] + [address] [place] [address] KRISTOPHER REYES Unavailable [address] + [place] [address] [employer] Unavailable [address] + [address] [place] [address] KRISTOPHER REYES Unavailable [address] + [place] [address] [employer] Unavailable [address] + [address] [place] [address] KRISTOPHER REYES Unavailable [address] + [place] [address] KRISTOPHER REYES Unavailable [address] + [place] [address] [employer] Unavailable [address] + [address] [place] [address] KRISTOPHER REYES Unavailable [address] + [place] [address] [employer] Unavailable [address] + [address] [place] [address] KRISTOPHER REYES Unavailable [address] + [place] [address] KRISTOPHER REYES Unavailable [address] + [place] [address] KRISTOPHER REYES Unavailable [address] + [place] [address] [employer] Unavailable [address] + [address] [place] [address] KRISTOPHER REYES Unavailable [address] + [place] [address] UE Unavailable Unavailable Unavailable KRISTOPHER REYES Unavailable [address] + [place] [address] DANII, ANGELA Unavailable [address] + [place] [address] KRISTOPHER REYES Unavailable [address] + [place] [address] UE Unavailable Unavailable Unavailable DANIIROMEROCY Unavailable [address] + [place] [address] KRISTOPHER REYES Unavailable [address] + [place] [address] UE Unavailable Unavailable Unavailable DANIIROMEROCY Unavailable [address] + [place] [address] KRISTOPHER REYES Unavailable [address] + [place] [address] UE Unavailable Unavailable Unavailable DANIIROMEROCY Unavailable [address] + [place] [address] KRISTOPHER REYES Unavailable [address] + [place] [address] UE Unavailable Unavailable Unavailable DANIIROMEROCY Unavailable [address] + [place] [address] KRISTOPHER REYES Unavailable [address] + [place] [address] UE Unavailable Unavailable Unavailable DANIIROMEROCY Unavailable [address] + [place] [address] KRISTOPHER REYES Unavailable [address] + [place] [address] UE Unavailable Unavailable Unavailable DANIIROMEROCY Unavailable [address] + [place] [address] KRISTOPHER REYES Unavailable [address] + [place] [address] UE Unavailable Unavailable Unavailable UNKNOWN Unavailable Unavailable + [place] [address] DANIIROMEROCY Unavailable [address] + [place] [address] KRISTOPHER REYES Unavailable [address] + [place] [address] UE Unavailable Unavailable Unavailable Care Team Providers Name Role Phone Renee Mahoney Attending Unavailable Didier Albert Referring Unavailable Marion Guardado Attending Unavailable Bety, Didier Referring Unavailable Sweet Grass, Renee Attending Unavailable Casco, Didier Referring Unavailable Marcanthony, Marion Attending Unavailable Bety, Didier Referring Unavailable Marcanthony, Marion Attending Unavailable Marcanthony, Marion Referring Unavailable Bety, Didier Primary Care Unavailable Marcanthony, Marion Attending Unavailable Casco, Didier Referring Unavailable Marcanthony, Marion Attending Unavailable Marcanthony, Marion Referring Unavailable Bety, Didier Primary Care Unavailable Marcanthony, Marion Attending Unavailable Bety, Didier Referring Unavailable Marcanthony, Marion Attending Unavailable Casco, Didier Primary Care Unavailable Marcanthony, Marion Referring Unavailable Marcanthony, Marion Attending Unavailable Marcanthony, Marion Referring Unavailable Bety, Didier Primary Care Unavailable Marcanthony, Marion Consulting Unavailable Marcanthony, Marion Attending Unavailable Marcanthony, Marion Referring Unavailable Casco, Didier Primary Care Unavailable Marcanthony, Marion Attending Unavailable Marcanthony, Marion Attending Unavailable Marcanthony, Marion Attending Unavailable Marcanthony, Marion Referring Unavailable Casco, Didier Primary Care Unavailable Marcanthony, Marion Attending Unavailable Bety, Didier Primary Care Unavailable Ricky Pedro Attending Unavailable Casco, Didier Primary Care Unavailable Marcanthony, Marion Attending Unavailable Casco, Didier Referring Unavailable Casco, Didier Primary Care Unavailable Marcanthony, Marion Attending Unavailable Bety, Didier Referring Unavailable Bety, Didier Primary Care Unavailable Marcanthony, Marion Attending Unavailable Marcanthony, Marion Referring Unavailable Casco, Didier Primary Care Unavailable Bety, Didier Primary Care Unavailable De La Cruz, Syed Attending Unavailable Marcanthony, Marion Attending Unavailable Bety, Didier Referring Unavailable Marcanthony, Marion Attending Unavailable Casco, Didier Primary Care Unavailable DenzelRenee Attending Unavailable Bety, Didier Referring Unavailable Marcanthony, Marion Attending Unavailable Marcanthony, Marion Referring Unavailable Casco, Didier Primary Care Unavailable Marcanthony, Marion Attending Unavailable Casco, Didier Primary Care Unavailable Marcanthony, Marion Attending Unavailable Bety, Didier Primary Care Unavailable Marcanthony, Marion Consulting Unavailable Itzel Bateman Attending Unavailable Itzel Bateman Referring Unavailable Casco, Didier Primary Care Unavailable Marcanthony, Marion Attending Unavailable Casco, Didier Referring Unavailable Marcanthony, Marion Attending Unavailable [...] Unknown R80.9 - Marcanthony, Active [place] Proteinuria, [facility] unspecified / Hospital R80.9(ICD-10) Repository 05/23/2018 Unknown Z34.83 - Encounter Marcanthony, Active [place] for supervision of [facility] other normal Hospital , third Repository trimester / Z34.83(ICD-10) 05/23/2018 Unknown O99.213 - Obesity Marcanthony, Active [place] complicating [facility] , third Hospital trimester / Repository O99.213(ICD-10) 05/23/2018 Unknown O99.019 - Anemia Marcanthony, Active [place] complicating [facility] , Hospital unspecified Repository trimester / O99.019(ICD-10) 05/23/2018 Unknown Z3A.37 - 37 weeks Marcanthony, Active [place] gestation of [facility] / Hospital Z3A.37(ICD-10) Repository 05/16/2018 Unknown Z34.90 - Encounter Marcanthony, Active [place] for supervision of [facility] normal , Hospital unspecified, Repository unspecified trimester / Z34.90(ICD-10) 05/16/2018 Unknown Z3A.36 - 36 weeks Jose A, Active [place] gestation of [facility] / Hospital Z3A.36(ICD-10) Repository 05/05/2018 Unknown Z3A.34 - 34 weeks Renee Mahoney Active [place] gestation of [facility] / Hospital Z3A.34(ICD-10) Repository 04/07/2018 Unknown Z3A.30 - 30 weeks Jose A, Active [place] gestation of [facility] / Hospital Z3A.30(ICD-10) Repository 04/09/2018 Unknown O26.02 - Excessive Jose A, Active [place] weight gain in [facility] , second Hospital trimester / Repository O26.02(ICD-10) 02/21/2018 Unknown O99.210 - Obesity Jose A, Active [place] complicating [facility] , Hospital unspecified Repository trimester / O99.210(ICD-10) 12/06/2017 Unknown N93.9 - Abnormal Willis Ricky Active [place] uterine and [facility] vaginal bleeding, Hospital unspecified / Repository N93.9(ICD-10) 11/09/2017 Unknown Z12.4 - Encounter David Guardado for screening for [facility] malignant neoplasm Hospital of cervix / Repository Z12.4(ICD-10) 06/27/2017 Admitting Unknown / NA Active [facility] Medical diagnosis UNK(Unknown) [facility] Repository PROCEDURES PROCEDURES No Procedure Records FoundRESULTS RESULTS PROTEIN+CREATININE Collected: Status: F Source: [place] RATIO,URINE 05/30/2018 5:51 PM [facility] REPOSITORY TYPE CODE TESTS RESULT OUT OF RANGE REFERENCE UNITS LAB L501.1200 NO RANGE EST. mg/dL Normal UR CREAT 277.00 LAB L501.1930 <11.9 mg/dL High 67.7 PROTEIN,UR.R AN. LAB L501.1940 0-200 mg/g CRE High PROT:CRE 244 RATIO Performed By: #### L501.0900 #### [facility] [address] [place], [address] [employer] MILL OFFICE VISIT Observed: 05/30/2018 Status: F Source: [place] REPORT 1:19 PM [facility] REPOSITORY [facility] [address] [place], [place] [address] OFFICE VISIT Date of Service: 05/30/18 MR#: [id number] Acct: [id number] Name: VIKTORIA REYES Rep #: [id number] : 1990 Provider: Marion Guardado MD Age/Sex: 27/F Location: [facility] Status: Signed Intake Vital Signs05/30/18 Body Mass Index (BMI) 65.0 05/30/18 Height 5 ft 4 in 05/30/18 Weight: 375 lb 05/30/18 Body Mass Index (BMI) 64.3 05/30/18 Blood Pressure 134/74 H Intake Visit Reasons: 38 WEEK OB Chief Complaint: est ob Watch Hairspring Assembler Required: No Is patient in pain?: No [...] MD Cosigner Signature: Date (if applicable) CC: [employer] OFFICE VISIT Observed: 05/23/2018 Status: F Source: [place] REPORT 11:13 AM [facility] REPOSITORY [facility] [address] [place] [address] OFFICE VISIT Date of Service: 05/23/18 MR#: [id number] Acct: [id number] Name: VIKTORIA REYES Rep #: [id number] : 1990 Provider: Marion Guardado MD Age/Sex: 27/F Location: [facility] Status: Signed Intake Vital Signs05/23/18 Height 5 ft 4 in 05/23/18 Weight: 373 lb 05/23/18 Body Mass Index (BMI) 64.0 05/23/18 Blood Pressure 124/82 H 04/21/18 Body Mass Index (BMI) 62.7 Intake Visit Reasons: 37 WEEK OB Chief Complaint: est ob Watch Hairspring Assembler Required: No Is patient in pain?: No [...] Source: [place] LOMBARDI, GROUP B 1:08 PM [facility] STREPTOCOCCUS REPOSITORY LIZBETH Culture Group B Beta Streptococcus is not isolated. Performed By: #### M100.1800 #### [facility] [address] [place], [address] [employer] OFFICE VISIT Observed: 05/16/2018 Status: F Source: [place] REPORT 10:45 AM [facility] REPOSITORY [facility] [address] [place] [address] OFFICE VISIT Date of Service: 05/16/18 MR#: [id number] Acct: [id number] Name: VIKTORIA REYES Rep #: [id number] : 1990 Provider: Marion Guardado MD Age/Sex: 27/F Location: [facility] Status: Signed Intake Vital Signs05/16/18 Body Mass Index (BMI) 62.7 05/16/18 Height 5 ft 4 in 05/16/18 Weight: 370 lb 05/16/18 Body Mass Index (BMI) 63.5 05/16/18 Blood Pressure 118/80 Intake Visit Reasons: 36 WEEKS Chief Complaint: est ob Watch Hairspring Assembler Required: No Is patient in pain?: No [...] Marion Guardado MD> Date Marion Guardado MD [facility] Signature: Date (if applicable) CC: [employer] OFFICE VISIT Observed: 05/05/2018 Status: F Source: [place] REPORT 11:45 AM [facility] REPOSITORY [facility] [address] [place] [address] OFFICE VISIT Date of Service: 05/05/18 MR#: [id number] Acct: [id number] Name: VIKTORIA REYES Rep #: [id number] : 1990 Provider: JAVAN Mahoney Age/Sex: 27/F Location: [facility] Status: Signed Intake Vital Signs05/05/18 Body Mass [...] LEI Cosigner Signature: Date (if applicable) CC: [employer] OFFICE VISIT Observed: 04/21/2018 Status: F Source: [place] REPORT 9:20 AM [facility] REPOSITORY [facility] [address] [place] [address] OFFICE VISIT Date of Service: 04/21/18 MR#: [id number] Acct: [id number] Name: VIKTORIA REYES Rep #: [id number] : 1990 Provider: JAVAN Mahoney Age/Sex: 27/F Location: [facility] Status: Signed Intake Vital Signs04/21/18 Height 5 ft 4 in 04/21/18 Weight: 369 lb 04/21/18 Body Mass Index (BMI) 63.3 04/21/18 Blood Pressure 120/78 Intake Visit Reasons: 32 WEEKS Chief Complaint: est ob Watch Hairspring Assembler Required: No Is patient in pain?: No [...] BERNALC Cosigner Signature: Date (if applicable) CC: [employer]PER[employer] OFFICE VISIT Observed: 04/07/2018 Status: F Source: [place] REPORT 5:05 PM [facility] [address] [place] [address] OFFICE VISIT Date of Service: 04/07/18 MR#: [id number] Acct: [id number] Name: VIKTORIA REYES Rep #: [id number] : 1990 Provider: Marion Guardado MD Age/Sex: 27/F Location: [facility] Status: Signed Intake Vital Signs04/07/18 Body Mass Index (BMI) 62.7 04/07/18 Height 5 ft 4 in Intake Visit Reasons: 30 WEEKS Chief Complaint: est ob Watch Hairspring Assembler Required: No Is patient in pain?: No [...] Spontaneous abortions HPI 30 WEEKS: Details: VIKTORIA REYES is a 27 [...] Marion Plasenciaignmeghan Signature: Date (if applicable) CC: [employer]PER[employer] M[employer] OFFICE VISIT Observed: 03/21/2018 Status: F Source: [place] REPORT 4:33 PM [facility] REPOSITORY [facility] [address] [place] [address] OFFICE VISIT Date of Service: 03/21/18 MR#: [id number] Acct: [id number] Name: VIKTORIA REYES Rep #: [id number] : 1990 Provider: JAVAN Mahoney Age/Sex: 27/F Location: [facility] Status: Signed Intake Vital Signs03/21/18 Height 5 ft 4 in 03/21/18 Weight: 361 lb 8 oz 03/21/18 Body Mass Index (BMI) 62.0 03/21/18 Blood Pressure 130/64 H Intake Visit Reasons: est ob 28 weeks GLUCOLA Chief Complaint: est ob Watch Hairspring Assembler Required: No Is patient in pain?: No [...] HIV: Urine Culture: Sequential Screen: NIPT Screen: Leonar3Do Reports system reviewed and no additional complaints, [...] F Source: [place] 1H 50G 4:20 PM [facility] REPOSITORY TYPE CODE TESTS RESULT OUT OF RANGE REFERENCE UNITS LAB L501.0250 70-140 mg/dL Normal GLU GEST 93 50g 1H Performed By: #### L501.0250 #### [facility] [address] [place], [place], [address] CBC W/DIFF, AUTOMATED Collected: 03/21/2018 Status: F Source: [place] 4:20 PM [facility] REPOSITORY TYPE CODE TESTS RESULT OUT OF [...] Lymph 2.09 Performed By: #### L100.0100 #### [facility] [address] [place], [address] [employer]PER[employer] MILL OFFICE VISIT Observed: 02/21/2018 Status: F Source: [place] REPORT 5:04 PM [facility] REPOSITORY [facility] [address] [place] [address] OFFICE VISIT Date of Service: 02/21/18 MR#: [id number] Acct: [id number] Name: VIKTORIA REYES Rep #: [id number] : 1990 Provider: [place] Guardado MD Age/Sex: 27/F Location: [facility] Status: Signed Intake Vital Signs02/21/18 Height 5 ft 4 in 02/21/18 Weight: 359 lb 8 oz 02/21/18 Body Mass Index (BMI) 61.7 02/21/18 Blood Pressure 124/74 H H Intake Visit Reasons: est ob 24 weeks Watch Hairspring Assembler Required: No Is patient in pain?: No [...] Level of Care Code OB Routine 02/21/18 4412 <Electronically signed by Marion Guardado MD> Date Marion Guardado MD [facility] Signature: Date (if applicable) CC: 12 LEAD ELECTROCARDIOGRAM Observed: 01/27/2018 Status: F Source: [place] 1:09 PM [facility] Cardiovascular Services [address] [place] [address] 12 Lead EKG 01/24/18 1440 MR#: [id number] Acct: [id number] Name: VIKTORIA REYES Rep #: [id number] : 1990 From: Ubaldo Ly MD Attending [...] ECG Confirmed by DANE RESENDIZ, UBALDO ([id number]), editor map MORENO OWUSU ([id number]) on 01/27/2018 1:08:54 PM Referred By: Marion Guardado Confirmed By:UBALDO YL MD 01/27/18 1308 Date Ubaldo Ly MD CC: Didier Albert DO; Syed De La Cruz MD Signed EMERGENCY DEPARTMENT Observed: 01/24/2018 Status: F Source: [place] SUMMARY 4:45 PM [facility] Medical Records Department [address] [place] [address] Emergency Department Summary 01/24/18 1639 MR#: [id number] Acct: [id number] Name: VIKTORIA REYES Rep #: [id number] : 1990 From: Syed De La Cruz [...] sinus rhythm rate of 79 with normal IL interval, QRS duration and QT interval. [place] is normal. Chest x-ray was obtained and [...] doubt pneumonia. Case was discussed with her die press operator Dr. Marion Guardado. Most recent blood pressure was normal. Treatment Plan: After discussion with her die press operator patient to be discharged to home with follow-up in the next week Disposition: Discharged to home Impression: 1. Chest pain with dyspnea of unknown etiology 2. Transient hypertension 3. Anemia secondary to , second trimester This note was generated with [employer] software. It may contain incorrect words, spelling, [...] your Primary Care Provider. Call [facility] ([phone]) or report to the closest Emergency Room. Call 911 if necessary. 01/24/18 0345 <Electronically signed by Syed De La Cruz MD> Date Syed De La Cruz MD Cosigner Signature (If Indicated): Date CC: Didier Albert DO URINALYSIS, COMPLETE Collected: 01/24/2018 Status: F Source: [place] 4:00 PM [facility] REPOSITORY Order Comment: Order Date: 01/24/18 How [...] URINE SEEN Performed By: #### L400.0001 #### [facility] [address] [place], [address] CBC W/DIFF, AUTOMATED Collected: 01/24/2018 Status: F Source: [place] 3:10 PM [facility] REPOSITORY TYPE CODE TESTS RESULT OUT OF [...] Lymph 2.27 Performed By: #### L100.0100 #### [facility] [address] [place], [address] COMPREHENSIVE METABOLIC Collected: 01/24/2018 Status: F Source: [facility] 3:10 PM [facility] REPOSITORY TYPE CODE TESTS RESULT OUT OF [...] By: #### L500.4050, L501.1400, L501.4010, L504.2610 #### [facility] [address] [facility] [place], [place], [address] URIC ACID Collected: 01/24/2018 Status: F Source: [place] 3:10 PM [facility] REPOSITORY TYPE CODE TESTS RESULT OUT OF RANGE REFERENCE UNITS LAB L501.1400 2.6-6.0 mg/dL Normal URIC 4.2 Result Comment: The drugs N-Acetylcysteine and Metamizole may falsely depress this assay. Performed By: #### L500.4050, L501.1400, L501.4010, L504.2610 #### [facility] [address] [facility] [place], [address] TROPONIN-I Collected: 01/24/2018 Status: F Source: [place] 3:10 PM [facility] REPOSITORY TYPE CODE TESTS RESULT OUT OF RANGE REFERENCE UNITS LAB L501.4010 <0.045 ng/mL Normal < 0.015 TROPONIN-I Result Comment: TROPONIN-I EXPECTED VALUES <0.045 Negative 0.045 - 0.590 Consistent with Cardiac Damage > OR = 0.600 Critical Value Not every elevated troponin is indicative of VT. These values should be used with clinical judgement in examining the patient's clinical picture for diagnosis. To establish a diagnosis of VT versus myocardial injury, there must be a demonstrated rise and/or fall in the troponin values, in addition to ischemic symptoms, EKG changes, new regional wall motion abnormality, and/or angiographical evidence. PLEASE NOTE: REFERENCE RANGES EDITED 17 Performed By: #### L500.4050, L501.1400, L501.4010, L504.2610 #### [facility] [address] [place], [address] LDH Collected: 01/24/2018 Status: F Source: [place] 3:10 PM [facility] REPOSITORY TYPE CODE TESTS RESULT OUT OF RANGE REFERENCE UNITS LAB L504.2610 84-246 U/L Normal LDH 135 Performed By: #### L500.4050, L501.1400, L501.4010, L504.2610 #### [facility] [address] [place], [address] PROTHROMBIN TIME W/INR Collected: 01/24/2018 Status: F Source: [place] 3:10 PM [facility] REPOSITORY TYPE CODE TESTS RESULT OUT OF RANGE REFERENCE UNITS LAB L300.4150 11.7-14.9 SECONDS Normal PROTIME 13.0 LAB L300.4200 Normal INR 1.0 Performed By: #### L300.3900, L300.4310, L300.8000 #### [facility] [address] [place], [address] PARTIAL THROMBOPLAST Collected: 01/24/2018 Status: F Source: [place] TIME 3:10 PM [facility] REPOSITORY TYPE CODE TESTS RESULT OUT OF RANGE REFERENCE UNITS LAB L300.4310 24.1-36.2 Seconds Normal PTT 28.8 Performed By: #### L300.3900, L300.4310, L300.8000 #### [facility] [address] [place], [address] D-DIMER QUANTITATIVE Collected: 01/24/2018 Status: F Source: [place] (DVT/PE) 3:10 PM [facility] REPOSITORY TYPE CODE TESTS RESULT OUT OF RANGE REFERENCE UNITS LAB L300.8000 0.27-0.49 FEU/ug/m Low D-DIMER < 0.27 QUANT Result Comment: NORMAL D-Dimer level (<0.50) indicates no DVT or PE. Performed By: #### L300.3900, L300.4310, L300.8000 #### [facility] [address] [place], [address] CHEST PA AND LATERAL Observed: 01/24/2018 Status: F Source: [place] 2:34 PM [facility] REPOSITORY [facility] Imaging Services [address] [place] [address] Chest PA and Lateral MR#: [id number] Acct: [id number] Name: VIKTORIA REYES Rep #: [id number] : 1990 F 27 From: Erick Rand MD PCP: Didier Albert DO Status: REG ER Study: Chest PA and Lateral Date of Exam: 01/24/18 Exam# [id number] Ordering Dr: Syed De La Cruz MD [...] Erick Rand MD at 15:33 EDT Tel [phone], Service support , CC: Didier Albert DO; Syed De La Cruz MD Hand Shaker: Signed [employer] OFFICE VISIT Observed: 01/19/2018 Status: F Source: [place] REPORT 10:04 PM [facility] REPOSITORY [facility] [address] [place] [address] OFFICE VISIT Date of Service: 01/17/18 MR#: [id number] Acct: [id number] Name: VIKTORIA REYES Rep #: [id number] : 1990 Provider: Marion Guardado MD Age/Sex: 27/F Location: [facility] Status: Signed Intake Vital Signs01/17/18 Height 5 ft 4 in 01/17/18 Weight: 350 lb 4 oz 01/17/18 Body Mass Index (BMI) 60.1 01/17/18 Blood Pressure 134/72 Intake Visit Reasons: est ob 19 weeks be here at 4p Scan at 4:30 Watch Hairspring Assembler Required: No Is patient in pain?: No [...] [place] Guardado MD> Date [place] [facility] Signature: Date (if applicable) CC: OB LIMITED (NO Observed: 01/17/2018 Status: F Source: KAY BIOMETRICS) 4:48 PM [facility] REPOSITORY [facility] Imaging Services [address] [place] [address] OB Limited (No Biometrics) MR#: [id number] Acct: [id number] Name: VIKTORIA REYES Rep #: [id number] : 1990 F 27 From: Erick Rand MD PCP: Didier Albert DO Status: REG CLI Study: OB Limited (No Biometrics) Date of Exam: 01/17/18 Exam# [id number] Ordering Dr: [place] Guardado MD STUDY: SECOND [...] Erick Rand MD at 13:38 EDT Tel [phone], Service support , CC: Didier Albert DO; [place] Guardado MD Hand Shaker: Signed [employer] OFFICE VISIT Observed: 12/15/2017 Status: F Source: K[place] REPORT 2:20 AM [facility] [address] [place] [address] OFFICE VISIT Date of Service: 12/13/17 MR#: [id number] Acct: [id number] Name: VIKTORIA REYES Rep #: [id number] : 1990 Provider: [place] Guardado MD Age/Sex: 27/F Location: [facility] Status: Signed Intake Vital Signs12/13/17 Height 5 ft 4 in 12/13/17 Weight: 346 lb 2 oz 12/13/17 Body Mass Index (BMI) 59.4 12/13/17 Blood Pressure 124/74 Intake Visit Reasons: ER follow up Watch Hairspring Assembler Required: No Is patient in pain?: Yes [...] menopausal: No Patient : Yes : No [facility] Medical History cholecystctomy (Acute) tubes in ears [...] EMERGENCY DEPARTMENT Observed: 11/23/2017 Status: F Source: [place] SUMMARY 11:57 PM [facility] REPOSITORY [facility] Medical Records Department [address] [facility] [place] [address] Emergency Department Summary 11/23/17 2103 MR#: [id number] Acct: [id number] Name: VIKTORIA REYES Rep #: [id number] : 1990 27 From: Ricky Pedro MD [...] under the care of Dr. Guardado of [employer]. Physical Examination: Well-appearing young female. Vital signs [...] this time. Treatment Plan: Follow-up with her SUPERVISOR MILL. Disposition: Discharge Impression: Acute vaginal bleeding at 11 weeks Threatened miscarriage with 2 prior miscarriages This note was generated with [employer] software. It may contain incorrect words, spelling, [...] your Primary Care Provider. Call [facility] ([phone]) or report to the closest Emergency Room. Call 911 if necessary. 11/23/17 2047 <Electronically signed by Ricky Pedro MD> Date Ricky Pedro MD Cosigner Signature (If Indicated): Date CC: Didier Albert DO DISCHARGE INSTRUCTION Observed: 11/23/2017 Status: F Source: KAY 11:57 PM [facility] REPOSITORY [facility] Medical Records Department [address] [place] [address] Discharge Instruction 11/23/172104 MR#: [id number] Acct: [id number] Name: VIKTORIA REYES Rep #: [id number] : 1990 27 From: Ricky Pedro MD PCP: Didier Albert DO Status: DEP ER ED Disposition - Plan for ED Patient: Disposition: Home or Assisted Living Chief Complaint: Vag Bld, Preg Instructions: ED Miscarriage Poss Referrals: [place] Guardado MD [STAFF PHYSICIAN] - As soon as possible Additional Instructions: Call follow-up with your SUPERVISOR MILL. Exam your bleeding or that is potentially a concern for a miscarriage. At this time you were still 11 weeks. Your blood type is O+. What to do if you have Problems For any increased pain, shortness of breath, bleeding, nausea or vomiting, chest pain, or any unexpected problems, contact your Primary Care Provider. Call [facility] ([phone]) or report to the closest Emergency Room. Call 911 if necessary. 11/23/17 6762 <Electronically signed by Ricky Pedro MD> Date Ricky Pedro MD Cosigner Signature (If Indicated): Date CC: Didier Albert DO HCG TITER QUANT., Collected: 11/23/2017 Status: F Source: [place] SERUM 6:25 PM [facility] REPOSITORY TYPE CODE TESTS RESULT OUT OF RANGE REFERENCE UNITS LAB L700.8000 <9 non-preg mIU/mL High HCG 79461 QUANT. Performed By: #### L700.8000 #### [facility] [address] [place], [place], [address] ABO RH BLOOD TYPE, Collected: 11/23/2017 Status: F Source: [place] PATIENT 6:25 PM [facility] REPOSITORY TYPE CODE TESTS RESULT OUT OF RANGE REFERENCE UNITS LAB B10.0800 O Normal BLOOD POSITIVE TYPE GEL Performed By: #### B10.0010 #### [facility] [address] [place], [place], [address] TRANSVAGINAL W/PREG US Observed: 11/23/2017 Status: F Source: [place] 6:23 PM [facility] REPOSITORY [facility] [place] [address] Transvaginal w/Preg US MR#: [id number] Acct: [id number] Name: VIKTORIA REYES Rep #: [id number] : 1990 F 27 From: Julian Becerra DO PCP: Didier Albert DO Status: REG ER Study: Transvaginal w/Preg US Date of Exam: 11/23/17 Exam# [id number] Ordering Dr: Ricky Pedro MD STUDY: FIRST [...] Julian Becerra DO at 19:30 EDT Tel [phone], Service support , CC: Didier Albert DO; Ricky Pedro MD Hand Shaker: Signed INIT OB < 14WKS US Observed: 10/29/2017 Status: F Source: [place] 10:40 AM [facility] REPOSITORY [facility] Imaging Services [address] [place] [address] Init OB < 14Wks US MR#: [id number] Acct: [id number] Name: VIKTORIA REYES Rep #: [id number] : 1990 F 27 From: Erick Rand MD PCP: Didier Albert DO Status: REG CLI Study: Init OB < 14Wks US Date of Exam: 10/29/17 Exam# [id number] Ordering Dr: [place] Guardado MD STUDY: FIRST [...] Erick Rand MD at 14:10 EDT Tel [phone], Service support , CC: Didier Albert DO; [place] Guardado MD Hand Shaker: Signed DOWNTIME REPORT Observed: 10/28/2017 Status: F Source: [place] 2:13 PM [facility] REPOSITORY [facility] Medical Records Department [address] [place] [address] Downtime Report MR#: [id number] Acct: [id number] Name: VIKTORIA REYES Rep #: [id number] : 1990 27 From: Wilberto Owusu PCP: Didier Albert DO Status: REG CLI This patient was seen during an EMR downtime October 11, 2017 - October 18, 2017. This patient may have a combination of paper and electronic documentation or all paper documentation. All documentation is viewable within the e-chart portion of [employer] for each patient visit. DOWNTIME REPORT Observed: 10/28/2017 Status: F Source: [place] 2:11 PM [facility] REPOSITORY [facility] Medical Records Department [address] [place] [address] Downtime Report MR#: [id number] Acct: [id number] Name: VIKTORIA REYES Rep #: [id number] : 1990 27 From: Wilberto Owusu PCP: Status: REG CLI This patient was seen during an EMR downtime October 11, 2017 - October 18, 2017. This patient may have a combination of paper and electronic documentation or all paper documentation. All documentation is viewable within the e-chart portion of [employer] for each patient visit. GLUCOSE CHALLENGE GEST Collected: 10/25/2017 Status: F Source: [place] 1H 50G 3:55 PM [facility] REPOSITORY TYPE CODE TESTS RESULT OUT OF RANGE REFERENCE UNITS LAB L501.0250 70-140 mg/dL Normal GLU GEST 105 50g 1H Performed By: #### L501.0250 #### [facility] [address] [facility] [place], [address] CBC W/DIFF, AUTOMATED Collected: 10/25/2017 Status: F Source: KAY 2:42 PM [facility] REPOSITORY TYPE CODE TESTS RESULT OUT OF [...] Lymph 2.60 Performed By: #### L100.0100 #### [facility] [address] [facility] [address] RUBELLA IGG Collected: 10/25/2017 Status: F Source: [place] 2:42 PM [facility] REPOSITORY TYPE CODE TESTS RESULT OUT OF RANGE REFERENCE UNITS LAB L509.4000 IU/mL Normal Rubella IgG 15.9 Result Comment: Antibody results Interpretation of Immune Status < 5 IU/ml Presumed Non-immune 5 - < 10 IU/ml Equivocal > or = 10 IU/ml Presumed Immune Performed By: #### L509.4000, L3890.6005 #### [facility] [address] [place], [place], [address] HIV - WCH Collected: 10/25/2017 Status: F Source: [place] 2:42 PM [facility] REPOSITORY TYPE CODE TESTS RESULT OUT OF RANGE REFERENCE UNITS LAB L3890.6005 Nonreactive Normal HIV - [facility] Non-Reactive Performed By: #### L509.4000, L3890.6005 #### [facility] [address] [place], [address] TYPE AND SCREEN Collected: 10/25/2017 Status: F Source: [place] 2:42 PM [facility] REPOSITORY Order Comment: Reason for Type AND Screen/Red Cells: TYPE CODE TESTS RESULT OUT OF RANGE REFERENCE UNITS LAB B10.0800 O Normal BLOOD TYPE GEL POSITIVE LAB B100.4000 Normal Antibody NEGATIVE Screen Performed By: #### B101.7450 #### [facility] [address] [facility] [place], [place], [address] HEPATITIS B SURFACE Collected: 10/25/2017 Status: F Source: KAY AG 2:42 PM [facility] REPOSITORY TYPE CODE TESTS RESULT OUT OF RANGE REFERENCE UNITS LAB L3100.0400 Negative Normal HB Negative SURF AG Result Comment: Performed at: [facility] [address] [id number] Tourist Information Assistant: Edenilson Vivas PhD, Phone: [phone] Performed By: #### L3100.0390, L3100.0528 #### [facility] (refer to report for specific site) refer to report for address and phone number HEP B SURFACE Collected: 10/25/2017 Status: F Source: KAY ANTIBODIES 2:42 PM [facility] REPOSITORY TYPE CODE TESTS RESULT OUT OF [...] Status: F Source: [place]AY (RPR) 2:42 PM [facility] REPOSITORY TYPE CODE TESTS RESULT OUT OF REFERENCE UNITS RANGE LAB L700.5000 NONREACTIVE NONREACTIVE Normal RPR Performed By: #### L700.5000 #### [facility] [address] [facility] [place], [place], [address] Observed: 10/12/2017 Status: F Source: KAY CULTURE, URINE 4:00 PM [facility] REPOSITORY Urine Culture Below infection level. ORGANISM 1: Mixed Gram Positive Organisms Madison Count 1000-10,000 Performed By: #### M100.0650 #### [facility] [address] [facility] [place], [address] CT/NG WCH BY PCR Collected: 10/12/2017 Status: F Source: KAY 4:00 PM [facility] REPOSITORY Order Comment: RESULT(S) PREVIOUSLY REPORTED ON MANUAL REQUISITION DURING DOWNTIME. TYPE CODE TESTS RESULT OUT OF RANGE REFERENCE UNITS LAB L8200.2100 Negative Normal Chlam Negative Trac PCR LAB L8200.2200 Negative Normal NG by Negative PCR Performed By: #### L8200.2000 #### [facility] [address] [place], [address] PAP I-G W/RFX Collected: 10/12/2017 Status: F Source: KAY HRHPV-APTIMA 3:00 PM [facility] REPOSITORY Order Comment: CYTOLOGY INFORMATION: - CLINICAL INFORMATION: - DATE LMP/MENOPAUSE: 07/21/17 LMP - COLLECTION VIAL: Thin Prep Vial - MAINTENANCE FOREMAN SOURCE: CERVICAL - COLLECTION TECHNIQUE: CX BROOM ONLY Specimen Comment: Source.............Cervix Specimen Comment: LMP / Prev Treat...FQI=[id number] Specimen Comment: No. of containers..01 ThinPrep Vial [...] Normal PERFORM Comment Result Comment: [employer] System Manager (ASCP) LAB L7400.1700 . Normal SIGN Comment [...] false-positive and false-negative reports do occur. LAB L8073.2450 Negative Normal HPV APTIMA, Negative HR Result Comment: This test detects fourteen high-risk HPV types (16/18/31/33/35/39/45/ 51/52/56/58/59/66/68) without differentiation. Performed at: [facility] - [facility] [id number] Tourist Information Assistant: Sparkle Mendoza MD, Phone: [phone] Performed at: =G - [facility] [address] [id number] Tourist Information Assistant: Sparkle Mendoza MD, Phone: [phone] LAB L4754.4371 . Normal HPV RFLX Comment Result Comment: See below for HPV testing results. Performed By: #### L7400.0353 #### [facility] (refer to report for specific site) refer to report for address and phone number Observed: 10/07/2017 Status: F Source: [place] ABO/RH 10:21 AM CLINIC REFERENCE REPOSITORY ABO/RH(D): %O %POS Order Type: BBK HCG, QUANTITATIVE BL Collected: 10/07/2017 Status: F Source: [place] 10:21 AM CLINIC REFERENCE REPOSITORY TYPE CODE TESTS RESULT OUT OF REFERENCE UNITS RANGE LAB HCGQT(LOIN <5.0 mU/mL C) HCG, High Quantitative Bl 1543.0 ED DOC Observed: 06/28/2017 Status: UNK Source: [facility] 1:26 AM [facility] REPOSITORY This is a preliminary report only, as the practitioner review and authentication has not occurred. ED DOC Observed: 06/28/2017 Status: UNK Source: [facility] 1:26 AM [facility] REPOSITORY PHYSICIAN ASSESSMENT RECORDS : [employer] Event Time: 06/28/2017 00:20 CJ Status: Signed [facility] Viktoria Eric [[id number]] Mid-Level Chart (V2b) 26 / F / 1990 Chart created at 06/28/2017 00:12 by Cipriano Mtz Chart closed at 06/28/2017 01:06 Entry in Emergency Department at 06/27/2017 23:32, departure at 06/28/2017 01:26 Patient Name: Viktoria Reyes Record Number: [id number] Date: 06/28/2017 00:12 Entered Department at: 06/27/2017 [...] taking extra strength Tylenol with no relief. [facility] PATIENT NAME: VIKTORIA REYES [address] [facility] [address] [place] MEDICAL REC #: [id number] [place] [id number] EMERGENCY DEPARTMENT CHART EMERGENCY DEPARTMENT PHYSICIAN Has [...] heat and follow up with PCP referral. [facility] PATIENT NAME: VIKTORIA REYES [address] [facility] [address] [place] MEDICAL REC #: [id number] [place] [address] EMERGENCY DEPARTMENT CHART EMERGENCY DEPARTMENT PHYSICIAN Clinical Impression: 1. acute lumbar pain status post fall Disposition: Discharged *Home. Condition: Good Direct patient care supervision and electronic documentation review by Keenan Horner on 06/28/2017 01:18. : [employer] Event Time: 06/28/2017 00:35 Status: Signed [facility] Viktoria Reyes [[id number]] Attending Physician / / 1990 Addendum (V2b) Chart created at 06/28/2017 00:28 by Keenan Horner Chart closed at 06/28/2017 01:04 Entry in Emergency Department at 06/27/2017 23:32, departure at 06/28/2017 01:26 Patient Name: Viktoria Reyes Record Number: [id number] Date: 06/28/2017 00:28 Entered Department at: 06/27/2017 23:32 Patient Seen at: 06/27/2017 23:53 Chief Complaint:pt having lower back pain pt fell 2 weeks ago and injured back URINE , information as of 06/28/2017, 0:30 am UR HCG QUAL: Neg; UR SPEC GRAV: 1.022 Imaging Study Obtained: LUMBAR SPINE (3 VIEWS) Imaging Study Obtained: [facility] PATIENT NAME: VIKTORIA REYES [address] [facility] [address] [place] MEDICAL REC #: [id number] [place] [address] EMERGENCY DEPARTMENT CHART EMERGENCY DEPARTMENT PHYSICIAN LUMBAR [...] are obtained, the patient is treated with Woodbridge. is negative. X-rays as above are negative. [...] : Bob Event Time: 06/28/2017 00:20 CJHA [facility] PATIENT NAME: VIKTORIA REYES [address] [facility] [address] [place] MEDICAL REC #: [id number] [place] [address] EMERGENCY DEPARTMENT CHART EMERGENCY DEPARTMENT PHYSICIAN : [...] prescriptions filled. EKG and Radiology Results: A hand plate stacker or radiologist will review any EKG or radiology results provided by the ER doctor. We will contact you if the results in the final EKG or radiology reports require a change in treatment. Culture Results: Cultures may have been ordered during your ER visit. We will contact you if the culture results require a change in treatment. [facility] PATIENT NAME: VIKTORIA REYES [address] [facility] [address] [place] MEDICAL REC #: [id number] [place] [address] EMERGENCY DEPARTMENT CHART EMERGENCY DEPARTMENT PHYSICIAN Referrals: [...] may also be used on a strain, [facility] PATIENT NAME: VIKTORIA REYES [address] MEDICAL REC #: [id number] [place] [address] EMERGENCY DEPARTMENT CHART EMERGENCY DEPARTMENT PHYSICIAN especially [...] Minor pain may also be treated with vaih-pdc-czsehzo ibuprofen (if you are not ) or [...] in an arm or leg) REFERRAL [facility] ([facility]) , Address: [address] [place] [address] [place] [address], , fax: Please call the above number to schedule a follow-up appointment. [facility], Address: [address] [place] [address], [place] [address], , fax: [facility] PATIENT NAME: VIKTORIA REYES [address] [place] MEDICAL REC #: [id number] [place] [address] EMERGENCY DEPARTMENT CHART EMERGENCY DEPARTMENT PHYSICIAN Please call the above number to schedule a follow-up appointment. 2-3 days MEDICATIONS We have given you these prescriptions that you must fill and start taking: Woodbridge 5 mg-325 mg tablet, count:10, Dose =1 [...] indicates consent for Case Management to contact [facility] in an effort to meet your ongoing healthcare needs. This will allow forcontinuity of care once you leave the Emergency Department. This exchange of informationwill include, but not be limited to, disclosure of your patient information and possible release of records. [employer] Patient: VIKTORIA REYES Sex: F : 1990 Age: 26 yr Account No: [id number] [facility] PATIENT NAME: VIKTORIA REYES [address] [facility] [address] [place] MEDICAL REC #: [id number] [place] [address] EMERGENCY DEPARTMENT CHART EMERGENCY DEPARTMENT PHYSICIAN Registration Date: 23:32 06/27/2017 Address: [address] [facility] Address: [place] [address] REGISTRATION ED Number: [id number] Marital Status: M Financial Class: [facility] TRIAGE Priority: 4 - Semi Urgent Complaint: Lower Back Pain Stated Complaint: pt having lower back pain pt fell 2 weeks ago and injured back Arrival Date: 06/27/2017 23:32 Triage Date: 06/27/2017 23:36 Mode of Arrival: *Privately Owned Vehicle Transfer From: * Home WC: N Language: Hungarian Transport: Ambulatory/Walk In BED D49 In: 06/27/2017 23:40:51 06/27/2017 23:40:51 KASD D49 (Removed From) Out: 06/28/2017 01:26:03 06/28/2017 01:26:03 DMPA PROVIDERS SAHRA MTZ Provider Contact: 06/27/2017 23:53:32 CJHA End: MD Keenan Horner Provider Contact: 06/27/2017 23:53:35 ADB End: [facility] PATIENT NAME: VIKTORIA REYES [address] [facility] [address] [place] MEDICAL REC #: [id number] [place] [address] EMERGENCY DEPARTMENT CHART EMERGENCY DEPARTMENT PHYSICIAN ENRIQUE GEORGES Provider Contact: 06/27/2017 23:54:49 [facility] End: TRIAGE HISTORY ALLERGIES Allergic To: Codeine [...] History: Denies Domestic Violence 06/27/2017 23:40 KASD [facility] PATIENT NAME: VIKTORIA REYES [address] [facility] [address] [place] MEDICAL REC #: [id number] [place] [address] EMERGENCY DEPARTMENT CHART EMERGENCY DEPARTMENT PHYSICIAN Social History: Denies thoughts of self harm. 06/27/2017 23:40 [facility] Social History: Have you traveled in the past month? Where no 06/27/2017 23:40 KASD PAST SUPERVISOR MILL HIST Social History: Last Menstrual Period 05/03/17 [...] and assessed patients needs. 06/28/2017 00:13 CN [facility] PATIENT NAME: VIKTORIA REYES [address] [facility] [address] [place] MEDICAL REC #: [id number] [place] [address] EMERGENCY DEPARTMENT CHART EMERGENCY DEPARTMENT PHYSICIAN 06/28/2017 [...] is making you feel unsafe now: No [facility] PATIENT NAME: VIKTORIA REYES Isai [address] [facility] [address] [place] MEDICAL REC #: [id number] [place] [address] EMERGENCY DEPARTMENT CHART EMERGENCY DEPARTMENT PHYSICIAN 06/28/2017 [...] VS-FHT Time: 06/27/2017 23:36 06/27/2017 23:40 KASD [facility] PATIENT NAME: VIKTORIA REYES [address] [facility] [address] [place] MEDICAL REC #: [id number] [place] [address] EMERGENCY DEPARTMENT CHART EMERGENCY DEPARTMENT PHYSICIAN VS-Notes [...] 06/28/2017 00:29 CNH Results Time: 06/28/2017 00:38 Woodbridge (PO)*(5/325) DOSE:1 tabs [facility] PATIENT NAME: VIKTORIA REYES [address] [facility] [address] [place] MEDICAL REC #: [id number] [place] [address] EMERGENCY DEPARTMENT CHART EMERGENCY DEPARTMENT PHYSICIAN PO 06/28/2017 00:19 N/A Ordered: 06/28/2017 00:11 By CIPRIANO MTZ Completed Time: 06/28/2017 00:19 By CIPRIANO MTZ Noted Time: 06/28/2017 00:13 [facility] LS-spine series 06/28/2017 00:14 N/A Ordered: 06/28/2017 [...] hours with food Dispense: 30 / Refills: Woodbridge 5 mg-325 mg tablet 06/28/2017 00:16 CJHA SI ta q4-6h for 3 days Additional Instructions: Dx: Acute back pain ICD 10 M54.5 Dispense: 10 / Refills: [facility] PATIENT NAME: VIKTORIA REYES [address] [facility] [address] [place] MEDICAL REC #: [id number] [place] [address] EMERGENCY DEPARTMENT CHART EMERGENCY DEPARTMENT PHYSICIAN CHARGES SIGNATURE PHANI GARRETT [facility] GABRIELA GEORGES RN [facility] Keenan Horner MD Lucrecia MTZ PA-C CJHA [facility] PATIENT NAME: VIKTORIA REYES [facility] [address] [place] MEDICAL REC #: [id number] [place] [address] EMERGENCY DEPARTMENT CHART EMERGENCY DEPARTMENT PHYSICIAN URINE Collected: 06/28/2017 Status: F Source: [facility] 12:30 AM [facility] REPOSITORY Order Comment: [place]: M TYPE CODE TESTS RESULT OUT OF RANGE REFERENCE UNITS LAB L600.90963 NEGATIVE Normal UR NEGATIVE HCG QUAL LAB L600.22699 1.005-1.030 Normal UR 1.022 SPEC GRAV Performed By: #### L600.30630 #### [facility] [address] [phone] LUMBAR SPINE 2 OR 3 Observed: 06/28/2017 Status: F Source: [facility] VWS 12:16 AM [facility] REPOSITORY LUMBAR SPINE 2 OR 3 VWS [...] SOURCE 05/30/2018 Drug Penicillins/F001 Unknown Unknown [place] Allergy/[id number]( 034029(RXNORM) [facility]) Hospital Repository 05/30/2018 Drug codeine/[id number] Unknown Unknown [place] Allergy/146667387( 50(RXNORM) [facility] SN[facility]) Hospital Repository 05/30/2018 Drug hydrocodone/F006 Unknown Unknown [place] Allergy/581013748( 244760(RXNORM) [facility]) Hospital Repository 05/30/2018 Drug acetaminophen/F0 Unknown Unknown [place] Allergy/830639529( 41625713(RXNORM) [facility] SN[facility]) Hospital Repository 05/30/2018 Drug latex/[id number] Rash Unknown [place] Allergy/044518358( (RXNORM) [facility]) Hospital Repository 10/25/2017 Miscellaneous pennicillin Unknown Unknown [place] Allergy/928492013( [facility] SN[facility]) Hospital Repository 10/25/2017 Miscellaneous vicoden Unknown Unknown [place] Allergy/217794406( Community SNOMED CT) Hospital Repository ENCOUNTERS ENCOUNTERS ADMIT/DISCHARGE ACCOUNT ADMITTING ENCOUNTER LOCATION SOURCE NUMBER CLASS 06/02/2018 [id number] Ambulatory Building:[facility] Repository 05/31/2018 [id number] Ambulatory BMSBuilding:[place]CF.[facility] Repository 05/30/2018 [id number] Ambulatory [facility] ing:LABSPEC Repository 05/30/2018/05/30/19 [id number] Ambulatory BMSBuilding:B [place] 19 MS.[facility] Repository 05/27/2018/05/27/19 [id number] [place] [address] [facility] ing:WPOUTRoom Repository : WP013 05/26/2018 [id number] Ambulatory Building:[facility] Repository 05/23/2018/05/23/19 [id number] Ambulatory BMSBuilding:B [place] 19 MS.[facility] Repository 05/19/2018/05/19/19 [id number] Ambulatory Building:[address] Repository 05/16/2018 [id number] Ambulatory [facility] ing:LABSPEC Repository 05/16/2018/05/16/19 [id number] Ambulatory BMSBuilding:B [place] 19 [place].[facility] Repository 05/12/2018 [id number] Ambulatory Building:[facility] Repository 05/05/2018/05/05/20 [id number] Ambulatory BMSBuilding:B [place] 18 [facility] Repository 05/05/2018 [id number] Ambulatory Building:[facility] Repository 04/28/2018 [id number] Ambulatory Building:[facility] Repository 04/21/2018 [id number] Ambulatory Building:[facility] Repository 04/21/2018/04/21/20 [id number] Ambulatory BMSBuilding:B [place] 18 MS.[facility] Repository 04/21/2018/04/21/20 [id number] Ambulatory BMSBuilding:B [place] 18 [facility] Repository 04/19/2018 [id number] Ambulatory [facility] ing:NS Repository 04/07/2018/04/07/20 [id number] Ambulatory BMSBuilding:B [place] 18 [facility] Repository 04/04/2018/04/04/20 [id number] Ambulatory [address] Hospital ing:WPOUTRoom Repository : WP012 03/28/2018 [id number] Ambulatory BMSBuilding:[place] MS.CF.[facility] Repository 03/27/2018/03/27/20 [id number] Ambulatory [address] Hospital ing:WPOUTRoom Repository : WP013 03/21/2018 [id number] Ambulatory [facility] ing:LAB Repository 03/21/2018/03/21/20 [id number] Ambulatory BMSBuilding:B [place] 18 [place].[facility] Repository 03/21/2018/03/21/20 [id number] Ambulatory Building:[address] Repository 03/21/2018/04/08/20 [id number] Ambulatory [address] Hospital ing:NS Repository 02/21/2018/02/22/20 [id number] Ambulatory BMSBuilding:B [place] 18 [facility] Repository 02/21/2018 [id number] Ambulatory Building:[facility] Repository 01/31/2018 [id number] Ambulatory Building:[facility] Repository 01/24/2018/01/25/20 [id number] Emergency [address] Hospital ing:ED Repository 01/19/2018/01/20/20 [id number] Ambulatory Building:[address] Repository 01/17/2018 [id number] Ambulatory [facility] ing:US Repository 01/17/2018/01/18/20 [id number] Ambulatory BMSBuilding:B [place] 18 [facility] Repository 12/13/2017/12/14/19 [id number] Ambulatory BMSBuilding:B [place] 18 [facility] Repository 11/23/2017/11/24/19 [id number] Emergency [place] 18 [facility] ing:ED Repository 10/29/[id number] [facility] ing:OPUS Repository 10/25/[id number] [facility] ing:LAB Repository 10/12/[id number] [facility] ing:LABSPEC Repository 10/12/2017/10/13/19 [id number] Ambulatory BMSBuilding:B [place] 18 [facility] Repository 10/12/[id number] [facility] ing:US Repository 06/27/2017 [id number] Emergency [facility] g:TapanED Repository PAYERS PAYERS ENCOUNTER GUARANTOR PAYER SUBSCRIBER SOURCE 06/02/2018 VIKTORIA Primary VIKTORIA [facility] SMITHDOB: Insurance:Jerrell KAUFFMAN: [facility] [id number] y Number: [id number] [place] [address] [id number] [place] [address] Date: [place], [place] [address]Tgc: (330) [phone] (HP) 05/31/2018 VIKTORIA D Primary VIKTORIA D Kay [id number] Insurance:RONAK BENITO: [facility] Number: [id number] [place], [place] [id number] Repository 23801Cll: (330) Date:4651-51-90JH [phone] (HP) [address] [place] [address] 93391SV: 05/31/2018 Secondary NOT GIVENUNK Kay Insurance:SELF PAY [facility] Number: Effective Repository Date:2018-05-31 05/30/2018 VIKTORIA D Primary VIKTORAI D Kay [id number] Insurance:RONAK REYESB: [facility] Number: [id number] [place], [place] [id number] Repository 46043Ptg: (330) Date:5716-02-24ER [phone] (HP) [address] [place] [address] 25482FO: 05/30/2018 Secondary NOT GIVENUNK [place] Insurance:SELF PAY [facility] Number: Effective Repository Date:2018-05-30 05/30/2018 VIKTORIA D Primary VIKTORIA D [place] [id number] Insurance:RONAK REYESB: [facility] Number: [id number] [place], [place] [id number] Repository [address]Zmv: (330) Date:0041-69-49OX [phone] () [address] [place] [address] 65526RT: 05/30/2018 Secondary NOT GIVENUNK [place] Insurance:SELF PAY [facility] Number: Effective Repository Date:2018-05-30 05/27/2018 VIKTORIA D Primary VIKTORIA D [place] [id number] Insurance:RONAK BENITOB: [facility] Number: [id number] [place], [place] [id number] Repository [address]60[address]Qge: (163) Date:7010-24-77IK [phone] () [address] [place] [address] 34849FV: 05/27/2018 Secondary NOT GIVENUNK [place] Insurance:SELF PAY [facility] Number: Effective Repository Date:2018-05-27 05/26/2018 VIKTORIA Primary VIKTORIA [facility] SMITHDOB: Insurance:Jerrell KAUFFMAN: [facility] [id number] y Number: [id number] [place] [address] [id number] [place] [address] Date: [place], [place] [address]Fxn: (330) [phone] (HP) 05/23/2018 VIKTORIA D Primary VIKTORIA D Kay [id number] Insurance:RONAK BENITOB: [facility] Number: [id number] [place], [place] [id number] Repository 344[address]Pgw: (613) Date:3082-68-81KP [phone] () [address] [place] [address] 23169XP: 05/23/2018 Secondary NOT GIVENUNK Kay Insurance:SELF PAY [facility] Number: Effective Repository Date:2018-05-23 05/19/2018 VIKTORIA Primary VIKTORIA Her Children's SMITHDOB: [facility] CenterD[facility]: [facility] y Number: [id number] Repository [place] [id number] [address] [place], [place] Date: [place], [place] [address]Jbn: (330) [phone] (HP) 05/16/2018 VIKTORIA D Primary VIKTORIA D [place] [id number] [facility]: [facility] Number: [id number] [place], [place] [id number] Repository 29036Mcr: (091) Date:2857-22-69FM [phone] () [address] [place] [address] 43623HL: 05/16/2018 Secondary NOT GIVENUNK [place] Insurance:SELF PAY [facility] Number: Effective Repository Date:2018-05-16 05/16/2018 VIKTORIA D Primary VIKTORIA D [place] [id number] Insurance:[facility]: [facility] Number: [id number] [place], [place] [id number] Repository 378[address]Mvx: (570) Date:7667-43-95OB [phone] () [address] [place] [address] 75328CF: 05/16/2018 Secondary NOT GIVENUNK [place] Insurance:SELF PAY [facility] Number: Effective Repository Date:2018-05-16 05/12/2018 VIKTORIA Primary VIKTORIA Her Children's SMITHDOB: Insurance:[facility]olMiss[facility] Medical CenterDOB: Hospital y Number: [id number] Repository [place] [id number] [address] [place], [place] Date: [place], [place] [address]Xug: (330) [phone] (HP) 05/05/2018 VIKTORIA D Primary VIKTORIA D Kay [id number] Insurance:[facility]: [facility] Number: [id number] [place], [place] [id number] Repository 18702Jun: (330) Date:4781-03-61EX [phone] (HP) [address] [place] [address] 59753BF: 05/05/2018 Secondary NOT GIVENUNK Kay Insurance:SELF PAY [facility] Number: Effective Repository Date:2018-05-05 05/05/2018 VIKTORIA Primary VIKTORIA T[facility]a [facility] SMITHDOB: Insurance[facility]B: [facility] y Number: [id number] Repository [place] [id number] [address] [place], [place] Date: [place], [place] [address]Xor: [phone] (HP) 04/28/2018 VIKTORIA Primary VIKTORIA [facility] SMITHDOB: Insurance:[facility] HospitalB: [facility] y Number: [id number] Repository [place] [id number] [address] [place], [place] Date: [place], [place] [address]Qza: [phone] (HP) 04/21/2018 VIKTORIA Primary VIKTORIA [facility] SMITHDOB: Insurance:[facility] HospitalB: [facility] y Number: [id number] Repository [place] [id number] [address] [place], [place] Date: [place], [place] [address]Ram: [phone] (HP) 04/21/2018 VIKTORIA D Primary VIKTORIA D Kay [id number] Insurance:[facility]: [facility] Number: [id number] [place], [place] [id number] Repository [address]Xpo: (330) Date:6069-69-76NV [phone] (HP) [address] [place] [address] 88504AG: 04/21/2018 Secondary NOT GIVENUNK [place] Insurance:SELF PAY [facility] Number: Effective Repository Date:2018-04-21 04/21/2018 VIKTORIA D Primary VIKTORIA D [place] [id number] Insurance:RONAK BENITOB: [facility] Number: [id number] [place], [place] [id number] Repository 650[address]Akr: (720) Date:6707-72-70OF [phone] () [address] [place] [address] 17520EG: 04/21/2018 Secondary NOT GIVENUNK [place] Insurance:SELF PAY [facility] Number: Effective Repository Date:2018-04-21 04/19/2018 VIKTORIA D Primary VIKTORIA D [place] [id number] Insurance:RONAK BENITOB: [facility] Number: [id number] [place], [place] [id number] Repository 316[address]Ggb: (330) Date:5810-88-91ST [phone] () [address] [place] [address] 38094SL: 04/19/2018 Secondary NOT GIVENUNK Kay Insurance:SELF PAY [facility] Number: Effective Repository Date:2018-04-09 04/07/2018 VIKTORIA D Primary VIKTORIA D Kay [id number] Insurance:RONAK BENITOB: [facility] Number: [id number] [place], [place] [id number] Repository 210[address]Guh: (331) Date:6372-66-32OI [phone] () [address] [place] [address] 80435NG: 04/07/2018 Secondary NOT GIVENUNK [place] Insurance:SELF PAY [facility] Number: Effective Repository Date:2018-04-07 04/04/2018 VIKTORIA D Primary VIKTORIA D Kay [id number] Insurance:RONAK BENITOB: [facility] Number: [id number] [place], [place] [id number] Repository 33[address]Noq: (330) Date:5516-79-90IO [phone] (HP) [address] [place] [address] 31919FY: 04/04/2018 Secondary NOT GIVENUNK Kay Insurance:SELF PAY [facility] Number: Effective Repository Date:2018-04-04 03/28/2018 VIKTORIA D Primary NOT GIVENUNK [place] [id number] Insurance:[place] Number: Effective Repository 67[address]Ldc: (330) Date:2018-03-28-6943 (HP) 03/27/2018 VIKTORIA D Primary VIKTORIA D Kay [id number] Insurance:RONAK BENITOB: [facility] Number: [id number] [place], [place] [id number] Repository 489[address]Ktf: (330) Date:8442-88-33JU [phone] () [address] [place] [address] 93207WS: 03/27/2018 Secondary NOT GIVENUNK [place] Insurance:SELF PAY [facility] Number: Effective Repository Date:2018-03-27 03/21/2018 VIKTORIA D Primary VIKTORIA D [place] [id number] Insurance:RONAK BENITOB: [facility] Number: [id number] [place], [place] [id number] Repository 28672Xft: (892) Date:3421-23-99KN [phone] (HP) [address] [place] [address] 43122ZK: 03/21/2018 Secondary NOT GIVENUNK Kay Insurance:SELF PAY [facility] Number: Effective Repository Date:2018-03-21 03/21/2018 VIKTORIA D Primary VIKTORIA D [place] [id number] Insurance:RONAK BENITOB: [facility] Number: [id number] [place], [place] [id number] Repository 60789Kwx: (330) Date:5632-26-76QJ [phone] (HP) [address] [place] [address] 00178JI: 03/21/2018 Secondary NOT GIVENUNK [place] Insurance:SELF PAY [facility] Number: Effective Repository Date:2018-03-21 03/21/2018 VIKTORIA Primary VIKTORIA Her Children's SMITHDOB: Insurance:[facility]ITALB[facility]ett[facility] CenterB: [facility] [id number] y Number: [id number] Repository [place] [id number] [address], [place] Date: [place], [place] [address]Jwq: (330) [phone] (HP) 03/21/2018 VIKTORIA D Primary VIKTORIA D [place] [id number] Insurance:[facility]ITALB: [facility] Number: [id number] [place], [place] [id number] Repository 703[address]Xbc: (517) Date:6855-53-71NO [phone] () [address] [place] [address] 11073QP: 03/21/2018 Secondary NOT GIVENUNK [place] Insurance:SELF PAY [facility] Number: Effective Repository Date:2018-03-18 02/21/2018 VIKTORIA D Primary VIKTORIA D Kay [id number] Insurance:SIMONS ERICB: [facility] Number: 1990YXEMaple [place], [place] [id number] Repository 432[address]Riz: (389) Date:1984-32-86XE [phone] () [address] [place] [address] 43327UZ: 02/21/2018 Secondary NOT GIVENUNK Kay Insurance:SELF PAY [facility] Number: Effective Repository Date:2018-02-09 02/21/2018 VIKTORIA Primary VIKTORIA Her Children's SMITHDOB: Insurance:[facility]OSPITALNIGELMain Line Health/Main Line HospitalsB: Hospital [id number] y Number: [id number] [facility] [id number] [address], [place] Date: [place], [place] [address]Wzd: (330) [phone] () 01/31/2018 VIKTORIA Primary VIKTORIA T[facility]a [facility] SMITHDOB: Insurance:[facility]olMiss[facility] Baptist Medical CenterDOB: Hospital y Number: [id number] Repository [place] [id number] [address], [place] Date: [place], [place] [address]Jtc: (330) [phone] (HP) 01/24/2018 VIKTORIA D Primary VIKTORIA D Kay [id number] Insurance:RONAK BENITOB: [facility] Number: [id number] [place], [place] [id number] Repository 07[address]Iqo: 330) Date:8037-88-13SO [phone] () [address] [place] [address] 30914QB: 01/24/2018 Secondary NOT GIVENUNK [place] Insurance:SELF PAY [facility] Number: Effective Repository Date:2018-01-24 01/19/2018 VIKTORIA Primary VIKTORIA [facility] SMITHDOB: Insurance:MOLNIGELPolCass Medical CenterB: Hospital y Number: [id number] Repository [place] [id number] [address], [place] Date: [place], [place] [address]Yja: (330) [phone] (HP) 01/17/2018 VIKTORIA D Primary VIKTORIA D [place] [id number] Insurance:RONAK BENITOB: [facility] Number: [id number] [place], [place] [id number] Repository 360[address]Wfd: (330) Date:9863-12-74PF [phone] (HP) [address] [place] [address] 96402SA: 01/17/2018 Secondary NOT GIVENUNK [place] Insurance:SELF PAY [facility] Number: Effective Repository Date:2017-12-13 01/17/2018 VIKTORIA D Primary VIKTORIA D [place] [id number] Insurance:RONAK REYESB: [facility] Number: [id number] [place], [place] [id number] Repository 74[address]Inn: (330) Date:3350-32-85FV [phone] () [address] [place] [address] 23668WX: 01/17/2018 Secondary NOT GIVENUNK [place] Insurance:SELF PAY [facility] Number: Effective Repository Date:2017-12-13 12/13/2017 VIKTORIA D Primary VIKTORIA D [place] [id number] Insurance:RONAK BENITOB: [facility] Number: [id number] [place], [place] [id number] Repository 265[address]Unn: (330) Date:2335-00-26CY [phone] () [address] [place] [address] 01464UP: 12/13/2017 Secondary NOT GIVENUNK [place] Insurance:SELF PAY [facility] Number: Effective Repository Date:2017-12-13 11/23/2017 VIKTORIA D Primary VIKTORIA D Kay [id number] Insurance:RONAK KAUFFMAN: [facility] Number: [id number] [place], [place] [id number] Repository 54[address]Tnj: (330) Date:4167-71-46EG [phone] () [address] [place] [address] 99732AN: 11/23/2017 Secondary NOT GIVENUNK Kay Insurance:SELF PAY [facility] Number: Effective Repository Date:2017-11-23 10/29/2017 VIKTORIA D Primary VIKTORIA D [place] [id number] Insurance:RONAK KAUFFMAN: [facility] Number: [id number], [place] [id number] Repository 33906Ypp: 330) Date:4383-10-63GW [phone] () [address] [place] [address] 64321UM: 10/29/2017 Secondary NOT GIVENUNK [place] Insurance:SELF PAY [facility] Number: Effective Repository Date:2017-10-19 10/25/2017 VIKTORIA D Primary VIKTORIA D Kay [id number] Insurance:RONAK KAUFFMAN: [facility] Number: [id number], [place] [id number] Repository 51999Zpt: (330) Date:9801-34-16GV [phone] () [address] [place] [address] 86887VB: 10/25/2017 Secondary NOT GIVENUNK [place] Insurance:SELF PAY [facility] Number: Effective Repository Date:2017-10-25 10/12/2017 VIKTORIA D Primary VIKTORIA D [place] [id number] Insurance:MOLINAPolic SMITHDOB: Community TESSA y Number: [id number], [place] [id number] Repository 438[address]Sqf: (330) Date:6700-55-43GP [phone] () [address] [place] [address] 18147OT: 10/12/2017 Secondary NOT GIVENUNK Kay Insurance:SELF PAY [facility] Hospital Number: Effective Repository Date:2017-10-12 10/12/2017 VIKTORIA D Primary VIKTORIA D [place] [id number] Insurance:SIMONS SMITHDOB: Community [facility]Pol[facility] Number: [id number], [place] [id number] Repository 35901Rqv: (330) Date:8200-52-86DY [phone] () [address] [place] [address] 12921SU: 10/12/2017 Secondary NOT GIVENUNK Kay Insurance:SELF PAY [facility] Hospital Number: Effective Repository Date:2017-10-21 10/12/2017 VIKTORIA D Primary VIKTORIA D Kay [id number] Insurance:MOLINAPolic SMITHDOB: Community [facility] y Number: [id number], [place] [id number] Repository 75813Wry: (330) Date:0735-34-32AV [phone] () [address] [place] [address] 50208PE: 10/12/2017 Secondary NOT GIVENUNK Kay Insurance:SELF PAY [facility] Hospital Number: Effective Repository Date:2017-10-12 06/27/2017 VIKTORIA Alex [facility] CenterISSA [facility] [id number] Insurance:MOLINA JOHNSONUNK [facility] [place] MEDICAIDPolicy Repository [place], [place] Number: [id number]: (306) [id number] [phone] () Date:4680-97-73ZM [id number] [place] [address] 74843RG:
== END ==
PROVIDERS: Family Provider Family Medicine; PCP Family Medicine; Referring Provider Obstetrics & Gynecology; Visit Provider Obstetrics & Gynecology
DX: R80.9 Proteinuria, unspecified (principal)
CPT/HCPCS: 82570; 84156

== ENCOUNTER 2018-06-10 19:05 | Inpatient (IN) | payer MEDICAID, SELFPAY ==
[2018-05-16 10:19] VITALS: BMI 62.7
[2018-06-06 11:21] VITALS: BMI 65.0
[2018-06-10 23:19] VITALS: BMI 66.3
[2018-06-10] MEDS: 0.9% Saline Lock 10 ML Syringe IV (23:25)
[2018-06-10 23:46] LABS: Hematocrit 31.1 % (37-47); Mean Corp Hgb Conc 32.2 g/gl (32-36); Mean Corpuscular Hgb 28.2 pg (27.0-32.0); Mean Corpuscular Volume 87.6 fL (81-99); Mean Platelet Vol. 9.7 fl (6.2-12.0); Platelet Count 264 K/mm3 (150-450); RBC Distribution Width CV 16.4 % (11.6-14.6); RBC Distribution Width SD 50.8 fl (35.1-43.9); Red Blood Count 3.55 M/mm3 (4.2-5.4); White Blood Count 9.7 K/mm3 (4.4-11.0)
[2018-06-10 23:49] LABS: Scan Indicated on CBC? Y/N NO
[2018-06-11] MEDS: miSOPROStol 25 MCG TABLET VAGINAL ×2 (00:30→04:30)
[2018-06-11] MEDS: Lactated Ringers 1,000 ML 50 ML IV ×4 (09:21→21:29)
[2018-06-11] MEDS: Oxytocin 30 units/NS 500 ml 30 UNITS/500 ML IV.SOLN IV (09:26)
[2018-06-11] MEDS: 0.9% Normal Saline 100 ML IV.SOLN. INTRA-UTER (10:05)
[2018-06-11] MEDS: Nalbuphine 10 MG/ML Ampul IV (10:23)
[2018-06-11] MEDS: Ondansetron 4 MG/2 ML Vial IV (15:36)
[2018-06-11] MEDS: fentaNYL-bupivacaine (epidural) 100 ML BAG EPIDURAL ×2 (15:39→18:55)
--- NOTE | 2018-06-11 17:17 | NURSING ---
Voided in bathroom x 2 before epidural with output not measured.
[2018-06-11] MEDS: DiphenhydrAMINE 50 MG/ML Syringe IV (21:29)
--- NOTE | 2018-06-11 21:38 | HP.PCM_ITS ---
- Problem List (1) Anemia during Status: Acute Comment: To start iron (2) Status: Acute Qualifiers: Weeks of gestation: 39 weeks Qualified Code(s): Z3A.39 - 39 weeks gestation of Comment: genetic, ntd and carrier screening declined. Growth US-normal. Growth US every 4 weeks with weekly BPP. Weekly NST; normal BPP 04/28/18 (3) Supervision of normal Status: Acute Qualifiers: Normal : normal first Trimester: third trimester Qualified Code(s): Z34.03 - Encounter for supervision of normal first , third trimester Comment: PRR GARY 06/11/18 boy- Junaid Kristopher (4) Obesity affecting Status: Acute Qualifiers: Trimester: third trimester Qualified Code(s): O99.213 - Obesity complicating , third trimester Comment: 1st trimester glucola normal and plan weekly bpps with MFM, growth q4 weeks after 32 weeks, MFM recommends delivery at 39-40 weeks (5) ASCUS favor benign Status: Acute Comment: 2018 ascus hpv neg History Date of Admission: 06/10/18 Final GARY: 06/11/18 Final GARY Source: US <20 weeks Gestational age: 40 Weeks and 1 Days History of this : This is a 27 year-old, , at 40 weeks gestational age presents for IOL secondary to morbidy obesity of 65 as recommended by MFM. EFW was 84%ile. She has had a otherwise complicated by mild anemia. she denies any vb lof good fm and denies regular ctx. Surgical History: Surgical History (Last Reviewed 06/06/18 @ 11:20 by Tayler Piña) History of placement of ear tubes Z96.22 History of tonsillectomy Z90.89 Hx of cholecystectomy Z90.49 Allergies latex Allergy (Mild, Verified 06/10/18 23:22) Rash Penicillins Allergy (Verified 06/10/18 23:22) Other per pt report states this medication is not effective codeine Adverse Reaction (Unknown, Verified 06/11/18 10:16) Other stomach cramps per pt report acetaminophen [From Vicodin] Adverse Reaction (Verified 06/11/18 10:16) Other stomach cramps hydrocodone [From Vicodin] Adverse Reaction (Verified 06/11/18 10:16) Other stomach cramps Home Medications: Home Medications Vits [Prenatabs FA] 1 tab PO DAILY 11/23/17 Ferrous Sulfate 325 mg PO DAILY 04/04/18 Smoking Status: Never smoker Alcohol: None Number of Fetus(es): 1 Heart Tracin moderate variability reactive no decelerations category I tracing\ Blanket: regular History Past Pregnancies: Past Pregnancies Delivery Date Name GA/Weeks Outcome Route Weight Gender Labor Length Anesthesia Delivery Location Provider FOB Labs: Mom's Labs & Results 06/10/18 06/10/18 23:25 23:25 WBC 9.7 RBC 3.55 L Hgb 10.0 L Hct 31.1 L MCV 87.6 MCH 28.2 MCHC 32.2 RDW 16.4 H RDW Differential 50.8 H Plt Count 264 MPV 9.7 Blood Type O POSITIVE Antibody Screen NEGATIVE Course Did the patient receive Yes care? Labs Blood Type: O RH: POSITIVE RPR/VDRL/Syphilis Nonreactive Rubella status Immune HbSAg Negative Date Done: 10/25/17 Chlamydia Negative Gonorrhea Negative HIV/AIDS Non-Reactive Group B Strep: Negative Current Obstetrical History Gestational Diabetes No Incompetent Cervix No Infertility No IUGR No Macrosomia No Hypertension/Pre-eclampsia No Placenta Previa/Abruption No PTL/PROM No Uterine anomaly No Oligohydramnios No Polyhydramnios No Multiple gestation No Past Medical History Asthma No Diabetes No Hypertension No Heart disease No Mitral valve prolapse No Neurologic/Seizure disorder/ No Migraines Kidney disease No Liver disease No Varicosities No Clotting disorders/Hx of DVT No Thyroid Dysfunction No Other medical diseases No Psychiatric disorders No Major trauma No Abnormal PAP smear No Sleep apnea No Mammogram in the last 2 years No Social History Marital Status: Alleged father Kristopher Reyes Hx Smoking No Smoking Status Never smoker Expected Infant Delivery Method: Spontaneous Vaginal Review of Systems Constitutional: Denies: Fever, Malaise Eyes: Denies: Blurred vision, Vision Change HEENT: Denies: Head Aches, Visual Changes Cardiovascular: Denies: Chest Pain, Palpitations Respiratory: Denies: Cough, Shortness of Breath, Wheezing Gastrointestinal: Denies: Abdominal Pain, Diarrhea, Nausea, Vomiting Genitourinary: Denies: Dysuria, Hematuria Musculoskeletal: Denies: Joint Pain, Muscle pain Skin: Denies: Lesions, Rash Neurological: Denies: Blurred vision, Focal weakness, Headaches Psychiatric: Denies: Anxiety, Depression Endocrine: Denies: Heat/ Cold Intolerance Hematologic/ Lymphatic: Denies: Easy Bruising, Easy Bleeding Physical Exam General: Alert, Cooperative, No apparent distress HEENT: Atraumatic, Normocephalic. Negative for: Thyromegaly, Lymphadenopathy Cardiovascular: Regular rate Lungs: Normal air movement Abdomen: Soft, Non Tender, Gravid Neurological: Deep Tendon Reflexes 2+/4 and Symmetrical, Neuro grossly intact. 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 Negative for: Vulvar lesions Estimated gestational size: Large for gestational age Presentation: Cephalic Cervix Dilation (cm): 0 Assessment/Plan All Active Problems (Last Reviewed 06/06/18 @ 11:20 by Tayler Piña) Decreased movement (Acute) Anemia during (Acute) (Acute) Supervision of normal (Acute) Obesity affecting (Acute) ASCUS favor benign (Acute) Decreased movement (Resolved) This is a 27 year-old, , at 40 weeks gestational age presents for IOL secondary to morbidy obesity per MFM Patient presents IOL, plan expectant management for , cytotec until dilated enough for FB, then pitocin/AROM PRN Pain management: plans epidural- early anesthesia consult. GBS negative Management of any complications: obesity, BMI over 65 I have reviewed the [facility] and made any clinically relevant updates.
--- NOTE | 2018-06-11 21:38 | PCM.PN.BLA ---
Progress Note patient s/p cytotec and now s/p fb and pitocin- now 5 cm. s/p epi. cat I tracing internals in. continue exp managmeent pit per protocol
[2018-06-12] VITALS (18 sets, daily range): BP systolic 109–144; BP diastolic 54–97; PULSE 68–91; RESP 12–22; TEMP 36.5–38; O2SAT 89–100
[2018-06-12] MEDS: Lactated Ringers 1,000 ML 50 ML IV ×2 (04:15→09:06)
--- NOTE | 2018-06-12 06:52 | PCM.PN.BLA ---
Progress Note FHTs reassuring with 140s baseline. cat I tracing. pit at 14 and contractions adequate for at least 6 hours. minimal cervical change, still at 6 cm after 2 hours. plan pitocin washout and restart at 1/2. discussed with nursing
[2018-06-12] MEDS: fentaNYL-bupivacaine (epidural) 100 ML BAG EPIDURAL (10:43)
[2018-06-12] MEDS: Sodium Citrate/Citric Acid 30 ML UDC PO (11:11)
--- NOTE | 2018-06-12 11:35 | PCM.PN.BLA ---
Progress Note Patient is still 6 cm. She has been 6 cm at 4 am this morning and has had adequate contractions and had a pitocin washout and has been on pitocin for over 24 hours and ruptured for almost 20 hours. discussed with patient and recommendation for primary done. discussed risks benefits and alternatives and patient agrees to proceed with . will give ancef 3g and azitrhomycin prophylactic. will start lovenox postop.
[2018-06-12] MEDS: Oxytocin 30 units/NS 500 ml 30 UNITS/500 ML IV.SOLN 167 UNITS IV (11:52)
--- NOTE | 2018-06-12 13:41 | PCM.OPRPT ---
Problem List (1) Anemia during Status: Acute Comment: To start iron (2) Status: Acute Qualifiers: Weeks of gestation: 39 weeks Qualified Code(s): Z3A.39 - 39 weeks gestation of Comment: genetic, ntd and carrier screening declined. Growth US-normal. Growth US every 4 weeks with weekly BPP. Weekly NST; normal BPP 04/28/18 (3) Supervision of normal Status: Acute Qualifiers: Normal : normal first Trimester: third trimester Qualified Code(s): Z34.03 - Encounter for supervision of normal first , third trimester Comment: PRR GARY 06/11/18 boy- Junaid Kristopher (4) Obesity affecting Status: Acute Qualifiers: Trimester: third trimester Qualified Code(s): O99.213 - Obesity complicating , third trimester Comment: 1st trimester glucola normal and plan weekly bpps with MFM, growth q4 weeks after 32 weeks, MFM recommends delivery at 39-40 weeks (5) ASCUS favor benign Status: Acute Comment: 2018 ascus hpv neg Report of Operation Date of Procedure: 06/12/18 Pre-Operative Diagnosis: AOD FTP bmi 66 CPD Post-Operative Diagnosis: same
--- NOTE | 2018-06-12 14:22 | NURSING ---
Pt rates incisional discomfort 11/16. PT given demerol, fentanyl, duramorph in OR, will continue to monitor.
--- NOTE | 2018-06-12 14:53 | NURSING ---
Resting with eyes closed
--- NOTE | 2018-06-12 15:23 | NURSING ---
Pulse ox after 2 hour recovery 88-89%. Alarm system on, O2 applied per nasal cannula at 5L/M. O2 SPO2 increased to 99-100%, O2 reduced to 2L/m. SPO2 remains at 98-99%.
[2018-06-12] MEDS: Lactated Ringers 1,000 ML 100 ML IV ×2 (15:50→21:43)
[2018-06-12] MEDS: Ketorolac 30 MG/ML Syringe IV ×2 (18:16→23:44)
[2018-06-12] MEDS: Cefazolin 1 GM/50 ML BAG IV (19:14)
[2018-06-12] MEDS: Acetaminophen 500 MG Tablet 1000 MG PO (21:41)
[2018-06-12] MEDS: Enoxaparin 40 MG/0.4 ML Syringe SC (21:42)
[2018-06-13] VITALS (11 sets, daily range): BP systolic 114–143; BP diastolic 44–79; PULSE 79–95; RESP 18; TEMP 36–36.9; O2SAT 97–99
[2018-06-13] MEDS: Cefazolin 1 GM/50 ML BAG IV (03:36)
[2018-06-13 05:55] LABS: Hematocrit 27.7 % (37-47); Hemoglobin 8.7 g/dl (12.0-15.0); Mean Corp Hgb Conc 31.4 g/gl (32-36); Mean Corpuscular Volume 89.1 fL (81-99); Platelet Count 181 K/mm3 (150-450); RBC Distribution Width CV 16.6 % (11.6-14.6); RBC Distribution Width SD 51.4 fl (35.1-43.9); Red Blood Count 3.11 M/mm3 (4.2-5.4); White Blood Count 12.5 K/mm3 (4.4-11.0)
[2018-06-13 06:02] LABS: Scan Indicated on CBC? Y/N NO
[2018-06-13] MEDS: Ketorolac 30 MG/ML Syringe IV ×3 (06:06→18:58)
--- NOTE | 2018-06-13 07:47 | PCM.PN.OB ---
Subjective: No CP, SOB. Pain not as well controlled as patient would like. - Physical Exam General: Alert, Oriented x3 Abdomen: Soft, Non-Distended - FF below U. Dressing dry and intact except small area old drainage. Tender with exam. Vital Signs Temp Pulse Resp BP Pulse Ox 97.1 F L 83 18 114/49 L 99 06/13/18 05:00 06/13/18 05:00 06/13/18 05:00 06/13/18 05:00 06/13/18 07:00 Oxygen Flow Rate (L/min) 2 Oxygen Delivery Method Room Air Weight: 386 lb 6 oz Body Mass Index (BMI) 66.3 Intake and Output for Last 24 Hours 06/11/18 06/12/18 06/13/18 23:59 23:59 23:59 Intake Total 1435 / 1435 3734 / 3734 1350 / 1350 Output Total 1350 / 1350 875 / 875 Balance 1435 / 1435 2384 / 2384 475 / 475 Laboratory Tests Past 24 Hrs 06/13/18 05:20 WBC 12.5 H RBC 3.11 L Hgb 8.7 L Hct 27.7 L MCV 89.1 MCH 28.0 MCHC 31.4 L RDW 16.6 H RDW Differential 51.4 H Plt Count 181 MPV 10.0 Medical Necessity - Tobacco Use Smoking Status: Never smoker Assessment/Plan All Active Problems (Last Reviewed 06/06/18 @ 11:20 by Tayler Piña) Decreased movement (Acute) Anemia during (Acute) (Acute) Supervision of normal (Acute) Obesity affecting (Acute) ASCUS favor benign (Acute) Decreased movement (Resolved) LTPCS POD #2: Continue to request pain med, encourage up to ambulate today. Routine care.
[2018-06-13] MEDS: Lactated Ringers 1,000 ML 100 ML IV (08:16)
[2018-06-13] MEDS: Enoxaparin 40 MG/0.4 ML Syringe SC ×2 (10:40→21:25)
[2018-06-13] MEDS: 0.9% Saline Lock 10 ML Syringe IV ×2 (12:25→18:58)
[2018-06-13] MEDS: Senna/Docusate Sodium 1 Tablet PO (12:28)
[2018-06-13] MEDS: oxyCODONE 5 MG Tablet PO ×2 (13:33→18:55)
[2018-06-14] MEDS: 0.9% Saline Lock 10 ML Syringe IV ×3 (00:39→12:30)
[2018-06-14] MEDS: Ketorolac 30 MG/ML Syringe IV ×3 (00:39→12:30)
[2018-06-14 02:45] VITALS: BP 114/62; PULSE 96; RESP 16; TEMP 36.8
--- NOTE | 2018-06-14 07:50 | PCM.PN.OB ---
Subjective: No CP, SOB. Pain still not well controlled. Tearful. Needs encouragement to move/ambulate. Baby at breast/awake most of night. Just recently gave pacifier to infant. - Physical Exam General: Alert, Oriented x3 Abdomen: Soft, Non-Distended, - - FF below U. Dressing dry and intact. Vital Signs Temp Pulse Resp BP Pulse Ox 98.3 F 96 16 114/62 97 06/14/18 02:45 06/14/18 02:45 06/14/18 02:45 06/14/18 02:45 06/13/18 12:46 Oxygen Flow Rate (L/min) 2 Oxygen Delivery Method Room Air Weight: 386 lb 6 oz Body Mass Index (BMI) 66.3 Intake and Output for Last 24 Hours 06/12/18 06/13/18 06/14/18 23:59 23:59 23:59 Intake Total 3734 / 3734 1750 / 1750 Output Total 1350 / 1350 2075 / 2075 Balance 2384 / 2384 -325 / -325 Medical Necessity - Tobacco Use Smoking Status: Never smoker Assessment/Plan All Active Problems (Last Reviewed 06/06/18 @ 11:20 by Tayler Piña) Decreased movement (Acute) Anemia during (Acute) (Acute) Supervision of normal (Acute) Obesity affecting (Acute) ASCUS favor benign (Acute) Decreased movement (Resolved) LTPCS POD#2: Routine care. Encourage continuous pain management. Reassured concerning pacifier. support today.
[2018-06-14 07:58] VITALS: BP 114/59; PULSE 74; RESP 16; TEMP 36.2
--- NOTE | 2018-06-14 10:09 | NURSING ---
0800 assessment completed with student; agree with her charting.
[2018-06-14] MEDS: Enoxaparin 40 MG/0.4 ML Syringe SC ×2 (10:21→23:18)
[2018-06-14] MEDS: oxyCODONE 5 MG Tablet PO ×3 (10:22→20:30)
[2018-06-14] MEDS: Senna/Docusate Sodium 1 Tablet PO (10:22)
[2018-06-14 14:00] VITALS: BP 115/64; PULSE 72; RESP 14; TEMP 36.2
[2018-06-14] MEDS: Naproxen 250 MG Tablet PO (18:08)
[2018-06-14 20:32] VITALS: BP 103/49; PULSE 91; RESP 18; TEMP 36.5; O2SAT 96
[2018-06-15] MEDS: oxyCODONE 5 MG Tablet PO ×3 (00:47→10:28)
[2018-06-15 01:37] VITALS: BP 121/74; PULSE 80; RESP 16; TEMP 36.6; O2SAT 95
--- NOTE | 2018-06-15 07:57 | PCM.PN.OB ---
Subjective: No CP, SOB. Pain now controlled. Some difficulty with . Plans home today - Physical Exam General: Alert, Oriented x3 Abdomen: Soft, Non-Distended, - - FF below U. Dressing dry and intact. Vital Signs Temp Pulse Resp BP Pulse Ox 97.8 F 80 16 121/74 H 95 06/15/18 01:37 06/15/18 01:37 06/15/18 01:37 06/15/18 01:37 06/15/18 01:37 Oxygen Flow Rate (L/min) 2 Oxygen Delivery Method Room Air Weight: 386 lb 6 oz Body Mass Index (BMI) 66.3 Intake and Output for Last 24 Hours 06/13/18 06/14/18 06/15/18 23:59 23:59 23:59 Intake Total 1750 / 1750 200 / 200 Output Total 2074 / 2074 Balance -325 / -325 200 / 200 Medical Necessity - Tobacco Use Smoking Status: Never smoker Assessment/Plan All Active Problems (Last Reviewed 06/06/18 @ 11:20 by Tayler Piña) Decreased movement (Acute) Anemia during (Acute) (Acute) Supervision of normal (Acute) Obesity affecting (Acute) ASCUS favor benign (Acute) Decreased movement (Resolved) LTPCS POD#3: Routine care. Working with . Pain controlled. Home today
[2018-06-15 08:00] VITALS: BP 110/52; PULSE 76; RESP 20; TEMP 36.5
--- NOTE | 2018-06-15 08:08 | DCINST_ITS ---
Additional Instructions: If you experience any of the following, contact your healthcare provider. * Bleeding that soaks a pad every hour for 2 hours * Fever 100.4 or higher * Unrelieved incision or abdominal pain * Swelling, redness, discharge or bleeding from your incision or episiotomy site * Your incision begins to separate * Problems urinating (including inability to urinate or burning while urinating). * Visual changes * Severe headache * Flu-like symptoms * Pain or redness in one of both of your breasts * Pain, warmth, tenderness or swelling in your legs, especially the calf area * Frequent nausea and vomiting * Symptoms of depression or anxiety If you experience any of the following, call 911 or go to the nearest Emergency Room. * Chest pain * Problems breathing * Seizure activity * Partial or complete paralysis of a body part, slurred speech, weakness or drooping of the face, or a sudden inability to walk or hold your balance Allergies/Adverse Reactions: Allergies latex Allergy (Mild, Verified 06/10/18 23:22) Rash Penicillins Allergy (Verified 06/10/18 23:22) Other per pt report states this medication is not effective codeine Adverse Reaction (Unknown, Verified 06/11/18 10:16) Other stomach cramps per pt report hydrocodone [From Vicodin] Adverse Reaction (Verified 06/11/18 10:16) Other stomach cramps Medications to take at Discharge Vits [Prenatabs FA] 1 tab PO DAILY 11/23/17 Ferrous Sulfate 325 mg PO DAILY 04/04/18 Naproxen 500 mg PO BID PRN #60 tablet 06/15/18 Oxycodone HCl/Acetaminophen [Percocet 5/325] 1 - 2 tablet PO Q4H PRN PRN 7 Days #28 tablet 06/15/18 The following prescriptions were given: Oxycodone HCl/Acetaminophen [Percocet 5/325] 1 - 2 tablet PO Q4H PRN PRN 7 Days #28 tablet PRN Reason: Pain Naproxen 500 mg PO BID PRN #60 tablet PRN Reason: Pain Follow-Up: Call to make an appointment with your doctor for an incision check in 1-2 weeks. You will also need a 6 week post- follow up appointment. Test results from this visit will be discussed in further detail at your follow- up appointment, if applicable. Primary Care Physician: Didier Albert DO [Primary Care Provider] -
--- NOTE | 2018-06-15 08:33 | PCM.DC.SUM ---
Discharge Date and Diagnosis Date of Admission: 06/10/18 Date of Discharge: 06/15/18 - Primary Discharge Diagnosis Status post c section Hospital Course and Treatment Consultations 06/10/18 19:16 Consult: Anesthesia Routine Comment: Reason For Exam: LABOR Operations: - - ronni Summary of Care Provided: The patient is a 27 year old F induction of labor for obesity. CPD, underwent PCS with routine care. Ambulating well. No difficulty bowel or bladder function. Pain controlled with oral meds. Stable for discharge to home. - Physical Exam Vital Signs Temp Pulse Resp BP Pulse Ox 97.8 F 80 16 121/74 H 95 06/15/18 01:37 06/15/18 01:37 06/15/18 01:37 06/15/18 01:37 06/15/18 01:37 Oxygen Flow Rate (L/min) 2 Oxygen Delivery Method Room Air Weight: 386 lb 6 oz Body Mass Index (BMI) 66.3 Intake and Output for Last 24 Hours 06/13/18 06/14/18 06/15/18 23:59 23:59 23:59 Intake Total 1750 / 1750 200 / 200 Output Total 2074 / 2074 Balance -325 / -325 200 / 200 Discharge Diet: No Restrictions Discharge Activity: Return to Normal Activity Home Medications: Medications to take at Discharge Vits [Prenatabs FA] 1 tab PO DAILY 11/23/17 Ferrous Sulfate 325 mg PO DAILY 04/04/18 Naproxen 500 mg PO BID PRN #60 tablet 06/15/18 Oxycodone HCl/Acetaminophen [Percocet 5/325] 1 - 2 tablet PO Q4H PRN PRN 7 Days #28 tablet 06/15/18 Following Prescrptions Were Given to Patient: Oxycodone HCl/Acetaminophen [Percocet 5/325] 1 - 2 tablet PO Q4H PRN PRN 7 Days #28 tablet PRN Reason: Pain Naproxen 500 mg PO BID PRN #60 tablet PRN Reason: Pain Primary Care Physician: Didier Albert DO [Primary Care Provider] - Medical Necessity - Tobacco Use Smoking Status: Never smoker Meaningful Use Info Meaningful Use Diagnoses (Choose all that apply): None applicable
[2018-06-15] MEDS: Naproxen 250 MG Tablet PO (09:49)
--- NOTE | 2018-06-23 13:44 | NURSING ---
Had follow up visit but canceled. Spoke with césar earlier and she had stated she was doing much better and her milk was in and baby was nursing without the shield. She stated baby was gaining weight at doctors visit and had lots of voids and stools.
== END 2018-06-15 12:00 | disposition home or self-care (01) | DRG 540 ==
PROVIDERS: Admitting Provider Obstetrics & Gynecology; Family Provider Family Medicine; PCP Family Medicine; Referring Provider Obstetrics & Gynecology; Visit Provider Obstetrics & Gynecology
DX: O62.0 Primary inadequate contractions (principal); Z3A.40 40 weeks gestation of pregnancy; Z37.0 Single live birth; O99.02 Anemia complicating childbirth; D64.9 Anemia, unspecified; O99.214 Obesity complicating childbirth; E66.01 Morbid (severe) obesity due to excess calories; Z71.3 Dietary counseling and surveillance; O65.9 Obstructed labor due to maternal pelvic abnormality, unspecified
CPT/HCPCS: 59025; 59050; 85027; 86850; 86900; 99218; J7120; A4216; G0378; J2405

== ENCOUNTER 2018-06-27 16:28 | Emergency (ER) | payer MEDICAID, SELFPAY ==
[2018-06-27 11:41] VITALS: BMI 66.3
[2018-06-27 16:29] VITALS: BP 167/117; PULSE 72; RESP 16; TEMP 37.2; O2SAT 97; BMI 63.5
[2018-06-27 16:41] VITALS: BP 114/50; PULSE 68; RESP 20; TEMP 37.1; O2SAT 98
--- NOTE | 2018-06-27 16:59 | ED.RN ---
PT ARRIVES TO ED FOR SURGICAL SITE EVAL. IN TRIAGE PT BP WAS 165/111. PT HAS FREQUENT HEADACHES. DR BOLES CONSULTED AND INSTRUCTED ME TO SEND PT TO LABOR AND DELIVERY. Favian BUTTS RN [id number]
[2018-06-27 17:31] VITALS: PULSE 79; RESP 20; O2SAT 95
--- NOTE | 2018-06-27 17:58 | CT_ITS ---
STUDY: CT ABDOMEN AND PELVIS WITH CONTRAST REASON FOR EXAM: Female, 27 years old. Abdominal wall pain and infection RADIATION DOSAGE (If Supplied By Facility): CTDIvol = ( 19.44 ) mGy, DLP = ( 1630.77 ) mGycm TECHNIQUE: Transaxial images were obtained from the dome of the diaphragm to the symphysis pubis without oral contrast. Isovue 300 100 IV was administered. Sagittal and coronal images were reconstructed. Individualized dose optimization techniques were used for this CT. COMPARISON: None. FINDINGS: The visualized lung bases are unremarkable. The visualized portions of the heart are within normal limits. Liver is enlarged and fatty infiltrated without mass or bile duct dilatation Gallbladder has been removed surgically. Spleen is enlarged but homogeneous in attenuation Normal pancreas. Normal bilateral adrenal glands. Normal right kidney. Normal left kidney. Normal visualized stomach. Normal small intestine. Normal colon. No evidence for acute appendicitis. Normal abdominal aorta. Normal inferior vena cava. Normal retroperitoneum. Uterus is enlarged consistent with recent state There is edematous change or cellulitis within the fat of the anterior pelvic wall slightly greater on the right without evidence for focal abscess. There also appears to be mild thickening of the rectus sheaths bilaterally without definitive evidence for focal abscess. Normal osseous structures. CT/Abdomen/Pelvis W IV Cont ONLY IMPRESSION: Enlarged uterus consistent with state. There is diffuse edema or cellulitis within the subcutaneous fat of the anterior pelvic wall and thickening of the bilateral rectus sheath muscles.. Possibility of coexisting infection not excluded however there is no well-defined abscess. Incidental finding of nonspecific fatty infiltration of the liver and hepatosplenomegaly Electronically Signed: Ricky Meek MD at 19:46 EST , Service support ,
--- NOTE | 2018-06-27 18:01 | ED.VIS.GEN ---
History of Present Illness Chief Complaint: Wound Check Informant: Patient Onset: Weeks - 1 Quality: sore Location: LTCS surgical incision, lower abd wall Current Severity: Moderate Maximum Severity: Moderate Worsened by: palpation, movement about torso Relieved by: nothing despite being on clindamycin x 3d Associated Symptoms: subj fevers Narrative: Recent about 2 weeks ago, has been having pain for about a week, was seen 3 days ago and noted to be red and possibly infected and was started on clindamycin. Pain is worse. She is having some occasional green foul-smelling drainage. Was seen by her OB today and sent for CT and further treatment/evaluation. Past Medical History - Allergies and Home Meds Allergies/Adverse Reactions: Allergies latex Allergy (Mild, Verified 06/27/18 11:41) Rash Penicillins Allergy (Verified 06/27/18 11:41) Other per pt report states this medication is not effective codeine Adverse Reaction (Unknown, Verified 06/27/18 11:41) Other stomach cramps per pt report hydrocodone [From Vicodin] Adverse Reaction (Verified 06/27/18 11:41) Other stomach cramps Primary Care Physician: Didier Albert DO [Primary Care Provider] - Past Medical History: None Surgical History: - - Lives: Spouse/ Significant Other Smoking Status: Never smoker Review of Systems General: Reports: Chills, Fever, Subjective Eyes: Denies: Visual changes - bilaterally, Diplopia ENT: Denies: Rhinorrhea, Sore throat Cardiovascular: Denies: Chest pain, Palpitations Respiratory: Denies: Dyspnea, Cough, Dyspnea on exertion Gastrointestinal: Reports: Abdominal pain. Denies: Nausea, Vomiting, Diarrhea, Melena, Hematochezia Genitourinary: Denies: Dysuria, Hematuria, Frequency Musculoskeletal: Denies: Back pain, Extremity Pain Skin: Reports: Rash - redness around incision pelvis, Wounds - surgical; see HPI Neurological: Denies: Headache, Weakness, Numbness Physical Exam Vital Signs/Narrative: Vital Signs Temp Pulse Resp BP Pulse Ox 06/27/18 17:31 79 20 H 95 06/27/18 16:41 98.7 F 68 20 H 114/50 L 98 06/27/18 16:29 98.9 F 72 16 167/117 H 97 Inital Vital Signs reviewed: Yes General: Well nourished, Well developed, Obese, No Acute Distress Head: Normocephalic, Atraumatic Eyes: Perrl, EOMI ENT: Moist mucous membranes, No rhinorrhea Neck: Supple, Nontender Cardiovascular: Regular rate, Regular rhythm, No murmurs Respiratory: No distress, CTA bilaterally, Chest nontender Abdomen: Soft, Nondistended, Normal bowel sounds, Tender - throughout lower abd wall, which is erythemetous; emanates from LTCS incision Back: Nontender, Normal Inspection Extremities: Nontender, No edema Skin: Normal color, Rash - erythema surrounding LTCS incision, which is intact w/o dehiscence. pt recently cleaned it, no discharge expressible. very tender throughout. one bulla about 2cm diameter above it and to the left. no palpable crepitance or SQ emphysema. Neurological: Alert, Oriented x3, Cranial nerves II-XII grossly intact, Normal Strength, Normal Sensation Psychological: Normal affect, Normal Mood Diagnostic/Tx/Re-eval Impressions Abdomen/Pelvis CT 06/27/18 17:58 IMPRESSION: Enlarged uterus consistent with state. There is diffuse edema or cellulitis within the subcutaneous fat of the anterior pelvic wall and thickening of the bilateral rectus sheath muscles.. Possibility of coexisting infection not excluded however there is no well-defined abscess. Incidental finding of nonspecific fatty infiltration of the liver and hepatosplenomegaly Electronically Signed: Ricky Meek MD at 19:46 EST , Service support , 06/27/18 17:58 CT Abd [Abdomen/Pelvis W IV Cont ONLY] [CT] Stat Laboratory Results 06/27/18 06/27/18 18:30 18:30 WBC 9.3 RBC 2.94 L Hgb 7.8 L Hct 25.5 L MCV 86.7 MCH 26.5 L MCHC 30.6 L RDW 15.9 H RDW Differential 50.5 H Plt Count 335 MPV 9.0 Immature Gran % (Auto) 2.000 H Neut % (Auto) 65.0 Lymph % (Auto) 25.3 [place] % (Auto) 4.7 Eos % (Auto) 2.8 Baso % (Auto) 0.2 Absolute Neuts (auto) 6.0 Absolute Lymphs (auto) 2.36 Total Counted Not Reportable Diff Path Review May foll Sodium 142 Potassium 3.6 Chloride 108 H Carbon Dioxide 26.0 Anion Gap 8 BUN 14 Creatinine 0.79 Estim Creat Clear Calc 92.37 Est GFR (MDRD) Af Amer 111 Est GFR (MDRD) Non-Af 92 BUN/Creatinine Ratio 17.7 Glucose 71 L Calcium 8.4 L - Medical Decision Making CT shows signs of cellulitis, which I can confirm clinically, but there are no signs of any type of drainable collection. She does not have a significant leukocytosis. She is anemic at 7.8, she was 8.7 hemoglobin about 2 weeks ago when she delivered. I discussed all this with Dr. Naranjo, she is okay with discharge home and will follow up with her in the office, she already has arranged for her to see wound care tomorrow morning, sometimes they address these issues by placing a wound VAC to encourage drainage of the wound. She is on clindamycin 300 mg 3 times daily, she has only taken 2 full days of the medication, she only took 1 pill the day that she got it, and only has had one today and it is 8:30 PM right now. She was given aztreonam 2 g here tonight. A dose of morphine helped, I will give her another dose prior to discharge. I will have her increase her clindamycin to 4 times daily at 300 mg each dose, and I will give her a prescription for more to get her to 10 days total. Additionally, we will place her on Bactrim to cover the possibility of MRSA. Discussed all this with the patient and mother, they are comfortable with this plan. ED Disposition - Plan for ED Patient: Disposition: Home or Assisted Living Diagnosis: Abdominal wall cellulitis, Wound infection following section, Instructions: ED Wound Infec After Surgery Prescriptions: Sulfamethoxazole/Trimethoprim [Bactrim Ds Tablet] 1 each PO BID #20 tablet Clindamycin HCl 300 mg PO 4X/DAY #19 cap Referrals: Didier Albert DO [Primary Care Provider] - Marion Naranjo MD [STAFF PHYSICIAN] - 5-7 Days Additional Instructions: Follow-up with wound care as scheduled tomorrow morning.
[2018-06-27] MEDS: 0.9% Normal Saline 1,000 ML 999 ML IV (18:25)
[2018-06-27] MEDS: Morphine 4 MG/ML Syringe IV ×2 (18:25→20:42)
[2018-06-27 18:45] LABS: Absolute Lymphocyte Count 2.36 X10^3/ul (0.83-4.51); Basophil# 0.02 X10^3/uL; Basophil% 0.2 % (0-1); Eosinophil# 0.26 X10^3/uL; Eosinophils% 2.8 % (0-5); Hematocrit 25.5 % (37-47); Hemoglobin 7.8 g/dl (12.0-15.0); Lymphocyte # 2.36 X10^3/ul (4.0); Lymphocyte % 25.3 % (19-41); Mean Corp Hgb Conc 30.6 g/gl (32-36); Mean Corpuscular Hgb 26.5 pg (27.0-32.0); Mean Corpuscular Volume 86.7 fL (81-99); Monocyte# 0.44 X10^3/uL; Monocyte% 4.7 % (0-10); Neutrophil # 6.04 X10^3/uL (2.7-7.7); Platelet Count 335 K/mm3 (150-450); RBC Distribution Width CV 15.9 % (11.6-14.6); RBC Distribution Width SD 50.5 fl (35.1-43.9); Red Blood Count 2.94 M/mm3 (4.2-5.4); White Blood Count 9.3 K/mm3 (4.4-11.0)
[2018-06-27 18:46] LABS: Differential Indicated SCAN CRITERIA MET; POSITIVE COUNT YES; POSITIVE DIFFERENTIAL NO; POSITIVE MORPHOLOGY YES
[2018-06-27 19:04] LABS: Anion Gap 8 (5-15); BUN 14 mg/dL (7-18); BUN/Creat Ratio 17.7 RATIO (10-20); Calcium,Total 8.4 mg/dL (8.5-10.1); Chloride 108 mmol/L (98-107); Creatinine, Serum 0.79 mg/dL (0.55-1.02); EST Glomerular Filtration Rate 92 mL/min (>60); Est Glom Filt Rate - Afr Amer 111 mL/min (>60); Estimated Creatinine Clearance 92.37 ml/min; Glucose 71 mg/dL (74-106); Potassium 3.6 mmol/L (3.5-5.1); Sodium Level 142 mmol/L (136-145)
[2018-06-27 20:47] VITALS: BP 125/65; PULSE 66; PULSE 68; PULSE 70; RESP 18; TEMP 36.8; O2SAT 100; O2SAT 98
[2018-06-28 14:11] LABS: Pathologist Review Reviewed
== END 2018-06-27 20:52 | disposition home or self-care (01) ==
PROVIDERS: Emergency Provider Emergency Medicine; Family Provider Family Medicine; PCP Family Medicine
DX: O86.01 Infection of obstetric surgical wound, superficial incisional site (principal); O99.215 Obesity complicating the puerperium; E66.9 Obesity, unspecified
CPT/HCPCS: 74177; 80048; 85025; 96365; 96366; 96375; 96376; 99285; J7030; Q9967; A4216

== ENCOUNTER 2018-06-27 16:45 | Outpatient (CLI) | payer MEDICAID, SELFPAY ==
[2018-06-27 16:29] VITALS: BMI 63.5
--- NOTE | 2018-06-27 17:23 | NURSING ---
pt here from ED, she was sent here from ED doc d/t high blood pressure, pressure here was 130/74 no c/o headache. no c/o blurred vision, pt states she did not have trouble while in the hosp having her child with bp's. called and made aware pt was here, she states to send the pt back to ED. Pt sent back to ED with Kelsy Vela RN on the floor and has done an assessment on the pt wound assessed by myself, it is actively draining and painful on touch.
[2018-06-27 17:29] VITALS: BP 130/74; PULSE 75; RESP 18; TEMP 36.5
== END 2018-06-27 17:23 | disposition home or self-care (01) ==
LOC: WPOUT 16:58 → OBT 16:58
PROVIDERS: Family Provider Family Medicine; PCP Family Medicine; Referring Provider Obstetrics & Gynecology; Visit Provider Obstetrics & Gynecology
DX: R69 Illness, unspecified (principal)

== ENCOUNTER → 2018-07-01 11:30 | Outpatient (CLI) | payer MEDICAID, SELFPAY ==
[2018-07-01 11:02] VITALS: BMI 63.5
[2018-07-01 12:17] LABS: Absolute Lymphocyte Count 1.75 X10^3/ul (0.83-4.51); Absolute Neutrophil Count 5.3 X10^3/uL (2.0-7.7); Basophil# 0.04 X10^3/uL; Basophil% 0.5 % (0-1); Eosinophil# 0.35 X10^3/uL; Eosinophils% 4.4 % (0-5); Hematocrit 27.5 % (37-47); Hemoglobin 8.3 g/dl (12.0-15.0); Lymphocyte # 1.75 X10^3/ul (4.0); Lymphocyte % 21.9 % (19-41); Mean Corp Hgb Conc 30.2 g/gl (32-36); Mean Corpuscular Hgb 26.3 pg (27.0-32.0); Mean Platelet Vol. 8.9 fl (6.2-12.0); Monocyte# 0.48 X10^3/uL; Neutrophil # 5.27 X10^3/uL (2.7-7.7); Neutrophil % 65.9 % (47-70); Platelet Count 370 K/mm3 (150-450); RBC Distribution Width CV 16.4 % (11.6-14.6); RBC Distribution Width SD 51.6 fl (35.1-43.9); Red Blood Count 3.16 M/mm3 (4.2-5.4)
[2018-07-01 12:18] LABS: POSITIVE COUNT NO; POSITIVE DIFFERENTIAL NO; POSITIVE MORPHOLOGY NO
== END ==
PROVIDERS: Family Provider Family Medicine; PCP Internal Medicine; Visit Provider Nurse Practitioner Family
DX: T81.40XA Infection following a procedure, unspecified, initial encounter (principal)
CPT/HCPCS: 36415; 85025

== ENCOUNTER → 2020-02-15 11:29 | Outpatient (CLI) | payer MEDICAID, SELFPAY ==
[2020-02-15 11:29] VITALS: BMI 63.5
[2020-02-15 12:33] LABS: hCG Titer Quant., Serum 4336 mIU/mL (1-3)
== END ==
PROVIDERS: PCP Family Medicine; Referring Provider Obstetrics & Gynecology; Visit Provider Obstetrics & Gynecology
DX: O20.0 Threatened abortion (principal)
CPT/HCPCS: 36415; 84702

== ENCOUNTER → 2020-02-15 18:30 | Outpatient (CLI) | payer SELFPAY ==
[2020-02-15 11:29] VITALS: BMI 63.5
--- NOTE | 2020-02-15 18:37 | US_ITS ---
STUDY: FIRST TRIMESTER OBSTETRICAL ULTRASOUND REASON FOR EXAM: Female, 29 years old. Pliability. LMP: 11/15/2019. TECHNIQUE: Transvaginal TECHNICAL QUALITY: Adequate. PRIOR ULTRASOUND: None. FINDINGS: There is visualization of a single gestational sac in a normal intrauterine position. The mean sac diameter (MSD) measures 1.04 cm, indicating an estimated gestational age (EGA) of 5 weeks, 5 days. The gestational sac shape is within normal limits. There is a visualized yolk sac. The yolk sac measures 0.43 cm. The placenta is non-visualized. There is no demonstrated embryo ( pole). The estimated gestation age (EGA) by LMP is 11 weeks, 5 days. The estimated date of delivery (GARY) by LMP is 08/31/2020. The estimated gestation age (EGA) by US is 5 weeks, 5 days. The estimated date of delivery (GARY) by US is 10/12/2020. The uterus measures 9.9 x 6.2 x 5.1 cm. There is no demonstrated uterine fibroid. The cervix is closed. The right ovary measures 2.2 x 1.9 x 3.2 cm. There is a 1.7 cm cyst. There is no visualized right adnexal mass or complex lesion. The left ovary is not visualized. There is no visualized left adnexal mass or complex lesion. There is no fluid in the cul de sac. US/Init OB < 14Wks US IMPRESSION: 1. Question very early intrauterine without pole. GARY is 10/12/2020. 2. Right ovarian cyst. The left ovary is not visualized. Electronically Signed: Julian Becerra DO at 21:55 EDT Tel [phone], Service support ,
== END ==
PROVIDERS: PCP Family Medicine; Visit Provider Obstetrics & Gynecology
DX: O20.0 Threatened abortion (principal); N83.201 Unspecified ovarian cyst, right side
CPT/HCPCS: 36415; 76801; 84702

== ENCOUNTER → 2020-02-29 12:26 | Outpatient (CLI) | payer SELFPAY ==
[2020-02-15 11:29] VITALS: BMI 63.5
--- NOTE | 2020-02-29 12:27 | US_ITS ---
STUDY: FIRST TRIMESTER OBSTETRICAL ULTRASOUND REASON FOR EXAM: Female, 29 years old threatened ab LMP: 01/03/2020 TECHNIQUE: Transvaginal TECHNICAL QUALITY: Adequate. PRIOR ULTRASOUND: 02/15/2020 FINDINGS: There is visualization of a single gestational sac in a normal intrauterine position. The mean sac diameter (MSD) measures 27 mm, indicating an estimated gestational age (EGA) of 7 weeks, 5 days. The gestational sac shape is within normal limits. There is a visualized yolk sac. The yolk sac measures 3 mm. The placenta is non-visualized. There is visualization of a live embryo. The crown-rump length (CRL) measures 12 mm, indicating an estimated gestational age (EGA) of 7 weeks, 3 days. There is demonstrated cardiac activity with a heart rate of 146 bpm. The estimated gestation age (EGA) by LMP is 8 weeks, 1 days. The estimated date of delivery (GARY) by LMP is 10/09/2020. The estimated gestation age (EGA) by US is 7 weeks, 4 days. The estimated date of delivery (GARY) by US is 10/13/2020. The uterus measures 12.3 x 2.0 x 7.1 cm. There is no demonstrated uterine fibroid. The cervix is closed. The ovaries are not visualized.. There is no fluid in the cul de sac. US/Transvaginal w/Preg US IMPRESSION: Living intrauterine of 7 weeks 4 days as described above. Electronically Signed: Grabiel Doty MD at 8:38 EDT Tel , Service support ,
== END ==
PROVIDERS: PCP Family Medicine; Referring Provider Obstetrics & Gynecology; Visit Provider Obstetrics & Gynecology
DX: O20.0 Threatened abortion (principal)
CPT/HCPCS: 76817

== ENCOUNTER → 2020-03-27 10:39 | Outpatient (CLI) | payer MEDICAID, SELFPAY ==
[2020-03-27 09:33] VITALS: BMI 66.8
[2020-03-27 11:12] LABS: Absolute Lymphocyte Count 1.77 X10^3/uL (0.83-4.51); Absolute Neutrophil Count 6.2 X10^3/uL (2.0-7.7); Basophil# 0.02 X10^3/uL; Basophil% 0.2 % (0-1); Eosinophil# 0.17 X10^3/uL; Hematocrit 35.1 % (37-47); Hemoglobin 11.2 g/dL (12.0-15.0); Lymphocyte # 1.77 X10^3/ul (4.0); Lymphocyte % 20.5 % (19-41); Mean Corp Hgb Conc 31.9 g/dL (32-36); Mean Corpuscular Volume 84.6 fL (81-99); Mean Platelet Vol. 9.5 fl (6.2-12.0); Monocyte# 0.46 X10^3/uL; Monocyte% 5.3 % (0-10); NRBC Flagged by Analyzer 0 % (0-5); Neutrophil # 6.18 X10^3/uL (2.7-7.7); Neutrophil % 71.7 % (47-70); Platelet Count 292 K/mm3 (150-450); RBC Distribution Width CV 15.2 % (11.6-14.6); RBC Distribution Width SD 46.2 fl (35.1-43.9); Red Blood Count 4.15 M/mm3 (4.2-5.4); White Blood Count 8.6 K/mm3 (4.4-11.0)
[2020-03-27 12:20] LABS: HIV - WCH Non-Reactive (Nonreactive); Hepatitis B Surface Antigen Non-Reactive (Nonreactive); Hepatitis C Antibody Non-Reactive (Nonreactive); Rubella IgG Reactive (Nonreactive)
[2020-03-28 02:51] LABS: Rapid Plasmin Reagin (RPR) NONREACTIVE (NONREACTIVE)
[2020-03-30 03:06] LABS: Chlamydia By Nucleic Acid AMP Negative (Negative)
[2020-03-30 10:34] LABS: Gonococcus By Nucleic Acid AMP Negative (Negative)
== END ==
PROVIDERS: PCP Family Medicine; Referring Provider Obstetrics & Gynecology; Visit Provider Obstetrics & Gynecology
DX: Z34.81 Encounter for supervision of other normal pregnancy, first trimester (principal); O09.90 Supervision of high risk pregnancy, unspecified, unspecified trimester; Z3A.00 Weeks of gestation of pregnancy not specified
CPT/HCPCS: 36415; 85025; 86592; 86703; 86762; 86803; 86850; 86900; 86901; 87340; 87491; 87591

== ENCOUNTER → 2020-04-11 12:32 | Outpatient (CLI) | payer MEDICAID, SELFPAY ==
[2020-03-27 09:33] VITALS: BMI 66.8
[2020-04-11 13:10] LABS: Glucose Challenge Gest 1H 50g 101 mg/dL (70-140)
== END ==
PROVIDERS: PCP Family Medicine; Referring Provider Obstetrics & Gynecology; Visit Provider Obstetrics & Gynecology
DX: O99.210 Obesity complicating pregnancy, unspecified trimester (principal); Z3A.00 Weeks of gestation of pregnancy not specified
CPT/HCPCS: 36415; 82950

== ENCOUNTER → 2020-05-20 10:06 | Outpatient (CLI) | payer MEDICAID, SELFPAY ==
[2020-05-20 09:36] VITALS: BMI 66.2
== END ==
PROVIDERS: PCP Family Medicine; Referring Provider Obstetrics & Gynecology; Visit Provider Obstetrics & Gynecology
DX: Z36.9 Encounter for antenatal screening, unspecified (principal)
CPT/HCPCS: 36415

== ENCOUNTER 2020-06-23 17:40 | Outpatient (CLI) | payer MEDICAID, SELFPAY ==
[2020-06-20 16:00] VITALS: BMI 67.1
[2020-06-23] VITALS (56 sets, daily range): BP systolic 115–168; BP diastolic 55–91; PULSE 72–98; RESP 16–19; TEMP 36.3–36.7; O2SAT 83–100; BMI 67.1
--- NOTE | 2020-06-23 17:55 | EKG12_ITS ---
Test Reason : SYNCOPE Blood Pressure : / mmHG Vent. Rate : 091 BPM Atrial Rate : 091 BPM P-R Int : 152 ms QRS Dur : 094 ms QT Int : 366 ms P-R-T Axes : 032 006 021 degrees QTc Int : 450 ms Normal sinus rhythm Low Voltage QRS Confirmed by ARABELLA RESENDIZ, MICHELLE ([id number]), medical editor ISMAEL MOHAN ([id number]) on 06/27/2020 1:30:06 PM Referred By: DONY Confirmed By:MICHELLE BELL MD
--- NOTE | 2020-06-23 17:57 | ED.DCSUM_ITS ---
History of Present Illness Chief Complaint: Syncope Informant: Patient, Significant Other Onset: - - Syncopal episode Wednesday and Wednesday while walking and near syncopal episode today. Also complains of phlegm/something stuck in her throat. She points to the superior sternal notch. Context: Sudden Onset Timing: Intermittent Quality: Syncope x2 with walking Location: Not applicable Current Severity: - - Presently complains of mucus stuck in her throat Maximum Severity: - - Unable to quantitate or qualify Worsened by: Nothing Relieved by: Nothing Associated Symptoms: Lightheadedness, pallor with syncopal and near syncopal episodes Narrative: Patient is a 29-year-old G2, P1 Ab0 female who is 24 weeks gestation. She presents for evaluation of syncopal episode on Wednesday and Wednesday and near syncopal sewed today. She also reports shortness of breath for 1 week. She is present on aspirin because she was Covid positive at 8 weeks. Patient states she was walked with her on Wednesday. She had a syncopal episode. She became unresponsive. and for me that she was pale. She states prior to passing out she became lightheaded. She had no complaint of pain. She had no other symptoms. While walking on Wednesday she had syncopal episode again. Today she had a near syncopal episode. She states she is scheduled to see a capacitor inspector. She reports to sick episodes during first . Patient states her blood pressure is normally 120. First reading in triage was 168. First reading back in the room was 171. Patient denies headache, visual, ocular auditory symptoms. Denies photophobia. Denies neck pain or neck stiffness. Denies paresthesia or anesthesia. She denies swelling of her ankles or feet. She denies black or maroon stool. She has no other complaints. Presently she complains of phlegm or foreign body sensation superior to the sternal notch. There is no dysphonia or dysphagia. Prior similar symptoms: Yes - Feet x2 with first Recent Illness/Hospitalization: No - Covid 8 weeks gestation on baby aspirin - Past Medical History (1) History of delivery Status: Acute Comment: previous cs with SM for CPD AOD. plan RLTCS (2) Lab test positive for detection of COVID-19 virus Status: Acute Comment: positive test 03/12/20, advised 81mg aspirin and growth US @ 28 wks (3) Obesity affecting Status: Acute Comment: Discussed expected weight gain. Early 1h GCT-normal (4) Supervision of high risk , antepartum Status: Acute Comment: PRR GARY 10/09/20 girl PC: Junaid Spouse: Kristopher (5) Syncope Status: Acute Comment: cardio consult Past Medical History - Allergies and Home Meds Allergies/Adverse Reactions: Allergies latex Allergy (Mild, Verified 06/23/20 17:45) Rash Penicillins Allergy (Verified 06/23/20 17:45) Other per pt report states this medication is not effective codeine Adverse Reaction (Unknown, Verified 06/23/20 17:45) Other stomach cramps per pt report hydrocodone [From Vicodin] Adverse Reaction (Verified 06/23/20 17:45) Other stomach cramps Primary Care Physician: Didier Albert DO [COURTESY STAFF PHYSICIAN] - Prior records reviewed: Yes Surgical History: - - Lives: Spouse/ Significant Other, With Family Smoking Status: Never smoker Alcohol: None Drugs: None Review of Systems General: Denies: Chills, Fever, Malaise, Subjective, Sweats Eyes: Denies: Visual changes - bilaterally, Blurred Vision - bilaterally, Diplopia ENT: Reports: - - Phlegm/foreign body sensation superior to the sternal notch. Denies: Bilateral ear pain, Rhinorrhea, Sore throat Cardiovascular: Denies: Chest pain, Palpitations Respiratory: Denies: Dyspnea, Cough, Dyspnea on exertion Gastrointestinal: Reports: Nausea Genitourinary: Denies: Dysuria, Hematuria, Frequency Musculoskeletal: Reports: Extremity Pain - In sensation left shoulder to left elbow that is circumferential.. Denies: Myalgias, Arthralgias, Neck pain, Back pain, Swelling Skin: Reports: Rash, Wounds Neurological: Reports: Weakness. Denies: Parasthesia, Numbness Endocrine: Denies: Polyuria, Polydipsia Hematologic: Denies: Easy bruising, Easy bleeding Physical Exam Vital Signs/Narrative: Vital Signs Temp Pulse Resp BP Pulse Ox 06/23/20 17:41 98.0 F 97 16 168/91 H 100 Inital Vital Signs reviewed: Yes General: Well nourished, Well developed, Obese, No Acute Distress Head: Normocephalic, Atraumatic Eyes: Perrl, EOMI, - - There is no APD.. Negative for: Pale conjunctiva, Scleral icterus ENT: No rhinorrhea, TM's clear, Dry mucous membranes. Negative for: Nasal congestion, Sinus tenderness Neck: Supple, Nontender, No lymphadenopathy, No JVD, - - There is no inspiratory expiratory stridor. Cardiovascular: Regular rate, Regular rhythm, No murmurs, Normal S1, Normal S2 Respiratory: No distress, CTA bilaterally, Chest nontender Abdomen: Soft, Nontender, Nondistended, Normal bowel sounds Rectal: Deferred Back: Nontender, Normal Inspection Extremities: Nontender, No edema. Negative for: Tenderness, Edema Skin: Normal color, No rash, No Trauma. Negative for: Cyanosis, Diaphoresis, Jaundice Neurological: Alert, Oriented x3, Cranial nerves II-XII grossly intact, Normal Strength, Normal Sensation, Normal DTR - 2+ symmetric upper lower extremity and right to left with no clonus or Babinski sign., Normal Gait Psychological: Normal affect Diagnostic/Tx/Re-eval Laboratory Results 06/23/20 06/23/20 06/23/20 18:00 18:00 18:00 WBC 10.7 RBC 3.56 L Hgb 10.0 L Hct 31.5 L MCV 88.5 MCH 28.1 MCHC 31.7 L RDW Std Deviation 53.1 H RDW Coeff of Adin 16.7 H Plt Count 246 MPV 9.7 PT 13.2 INR 1.1 APTT 28.6 Creatinine 0.62 Estim Creat Clear Calc 115.61 Est GFR (MDRD) Af Amer 144 Est GFR (MDRD) Non-Af 119 Uric Acid 5.0 AST 13 L ALT 20 - EKG Initial EKG Interpretation: Sinus Rhythm - Normal sinus rhythm with a ventricular rate of 91. MI interval is on a 52 ms. Cures duration 94 ms. QT duration 366 ms. [place] is normal. The EKG is normal. EKG was performed at 05/17/2006. - Medical Decision Making EKG was obtained because of the 2 syncopal episodes that occurred with walking. Appropriate blood work for evaluation of preeclampsia since her blood pressure is elevated. Clinically she is dehydrated we will treat with fluids. Spoke with consulting database administrator on-call. Recommended mag citrate. Most recent blood pressure is 132/74. The mag citrate that was ordered was canceled. Patient was seen by consulting database administrator and plan is to admit to L&D. ED Disposition - Plan for ED Patient: Disposition: Acute Care Hospital [facility] Diagnosis: Hypertension affecting in second trimester, Syncope and collapse Referrals: Didier Albert DO [COURTESY STAFF PHYSICIAN] -
[2020-06-23 18:07] LABS: Hematocrit 31.5 % (37-47); Mean Corp Hgb Conc 31.7 g/dL (32-36); Mean Corpuscular Hgb 28.1 pg (27.0-32.0); Mean Corpuscular Volume 88.5 fL (81-99); Mean Platelet Vol. 9.7 fl (6.2-12.0); Platelet Count 246 K/mm3 (150-450); RBC Distribution Width CV 16.7 % (11.6-14.6); RBC Distribution Width SD 53.1 fl (35.1-43.9); Red Blood Count 3.56 M/mm3 (4.2-5.4); White Blood Count 10.7 K/mm3 (4.4-11.0)
[2020-06-23 18:17] LABS: International Normalized Ratio 1.1; Prothrombin Time (Protime)PT. 13.2 SECONDS (11.7-14.9)
[2020-06-23 18:18] LABS: Partial Thromboplast Time 28.6 Seconds (24.1-36.2)
[2020-06-23 18:24] LABS: AST(SGOT) 13 U/L (15-37); Alanine Aminotransfer ALT/SGPT 20 U/L (13-56); Creatinine, Serum 0.62 mg/dL (0.55-1.02); EST Glomerular Filtration Rate 119 mL/min (>60); Est Glom Filt Rate - Afr Amer 144 mL/min (>60); Estimated Creatinine Clearance 115.61 ml/min
--- NOTE | 2020-06-23 19:19 | PCM.HP.OB ---
- Problem List (1) Hypertension affecting in second trimester Status: Acute (2) Syncope Status: Acute Comment: cardio consult (3) History of delivery Status: Acute Comment: previous cs with SM for CPD AOD. plan RLTCS (4) Obesity affecting Status: Acute Comment: Discussed expected weight gain. Early 1h GCT-normal (5) Supervision of high risk , antepartum Status: Acute Comment: PRR GARY 10/09/20 girl PC: Junaid Spouse: Kristopher (6) Lab test positive for detection of COVID-19 virus Status: Acute Comment: positive test 03/12/20, advised 81mg aspirin and growth US @ 28 wks (7) Status: Acute Qualifiers: Weeks of gestation: 24 weeks Qualified Code(s): Z3A.24 - 24 weeks gestation of Comment: genetic- NIPT drawn x2 came back as insufficient DNA- MFM appt 05/01, AFP- negative declines carrier; 05/28/20- Echo is recommended; follow up [id number] to evaluate biometric parameters and anatomy beginning at viability, once weekly BPP starting at 32 weeks weekly NSTs History Date of Admission: 06/10/18 Final GARY: 10/09/20 Final GARY Source: US <20 weeks Gestational age: 24 Weeks and 4 Days History of this : This is a 29 year-old, G 2, P 1, at 24 weeks gestational age who presented to the emergency department after having 2 syncopal episodes during the day today. Patient has been having frequent syncopal episodes in the past week and reports a total of 9 times that she lost consciousness. Upon arrival in the emergency department, patient's initial blood pressure was 168/91. ER doctor repeated blood pressure and systolic was 171. Blood pressures then normalized. Patient denies headaches, blurred vision. Reports pressure in the upper portion of her chest in the midline. Also reports left arm discomfort. Denies other numbness or weakness. Does report feeling somewhat short of breath. During syncopal episodes, patient loses consciousness for approximately 20 seconds at a time and during this time she is completely unresponsive. Medical History: Medical History (Last Reviewed 06/20/20 @ 16:00 by Geri Fernando) Lab test positive for detection of COVID-19 virus (Acute) U07.1 positive test 03/12/20, advised 81mg aspirin and growth US @ 28 wks Insulin resistance complicating (Ruled-out) O26.899 Surgical History: Surgical History (Last Reviewed 06/20/20 @ 16:00 by Geri Fernando) History of Z98.891 06/12/18 History of placement of ear tubes Z96.22 History of tonsillectomy Z90.89 Hx of cholecystectomy Z90.49 Allergies latex Allergy (Mild, Verified 06/23/20 17:45) Rash Penicillins Allergy (Verified 06/23/20 17:45) Other per pt report states this medication is not effective codeine Adverse Reaction (Unknown, Verified 06/23/20 17:45) Other stomach cramps per pt report hydrocodone [From Vicodin] Adverse Reaction (Verified 06/23/20 17:45) Other stomach cramps Home Medications: Home Medications Vits [Prenatabs FA ] 1 tab PO DAILY 11/23/17 aspirin 81 mg tablet,delayed release 81 mg PO DAILY 05/20/20 Smoking Status: Never smoker Alcohol: None NST - FHR Rate Baby A Baseline: 155 History Past Pregnancies: Past Pregnancies Del. Date Name GA/Weeks Outcome Route Bth Weight Infant Gen Labor Lgth Anesthesia Del [facility] Provider FOB 06/10/18 Junaid 40 live - full term 8lbs 9oz Male 36 hours epidural [facility]IL Kristopher Delivery Date: 06/10/18 FTP, CPD, AOD Review of Systems Constitutional: Denies: Chills, Fever Eyes: Denies: Blurred vision, Vision Change HEENT: Denies: Head Aches, Visual Changes Cardiovascular: Reports: Chest Pressure, Chest Tightness, Light Headedness, Syncope. Denies: Chest Pain, Edema, Palpitations Respiratory: Reports: Shortness of Breath Gastrointestinal: Denies: Abdominal Pain, Nausea, Vomiting Gynecological: Denies: Vaginal bleeding, Vaginal discharge, Vaginal itching Neurological: Denies: Blurred vision, Double vision, Confusion, Numbness, Tingling Physical Exam Vitals: Vital Signs Temp Pulse Resp BP Pulse Ox 98.0 F 89 19 H 137/64 H 100 06/23/20 18:59 06/23/20 19:13 06/23/20 18:52 06/23/20 18:59 06/23/20 19:13 General: Alert, Oriented x3, Cooperative, No apparent distress, Well developed, Well nourished HEENT: Atraumatic, PERRLA, EOMI, Normocephalic Cardiovascular: Regular rate, Regular Rhythm Lungs: Normal air movement Abdomen: Soft, Non Tender, Non-Distended, Obese Extremities:: No edema Neurological: Cranial nerves II-XII grossly intact, Neuro grossly intact Assessment/Plan All Active Problems (Last Reviewed 06/20/20 @ 16:00 by Geri Fernando) Hypertension affecting in second trimester (Acute) Syncope and collapse (Acute) Syncope (Acute) History of delivery (Acute) Obesity affecting (Acute) Supervision of high risk , antepartum (Acute) Lab test positive for detection of COVID-19 virus (Acute) (Acute) ASCUS favor benign (Resolved) Anemia during (Resolved) Decreased movement (Resolved) Decreased movement (Resolved) Intertriginous dermatitis associated with moisture (Resolved) Obesity affecting (Resolved) Panniculitis (Resolved) Postoperative infection (Resolved) (Resolved) Supervision of normal (Resolved) Insulin resistance complicating (Ruled-out) This is a 29 year-old, G 2, P 1, at 24 weeks gestational age presenting with multiple syncopal episodes and found to have elevated blood pressures Syncope -Presents after having 2 syncopal episodes today with multiple syncopal episodes throughout the past week. Reports lost consciousness for approximately 20 seconds. -Blood pressure initially severe range on presentation at 168/91. Blood pressure then normalized. Preeclampsia labs negative. Urine protein to creatinine ratio pending. -Patient also reporting substernal chest pressure with pain in her left arm. -EKG normal. -Troponins negative. -Given that patient has had multiple syncopal episodes and initially was found to have severe range blood pressures on presentation, plan for transport to [facility] for further evaluation. Patient discussed with Dr. Dunn for maternal- medicine. Will await protein to creatinine ratio to determine if patient should be given magnesium and betamethasone prior to transport -Patient and both aware of plan of care and agreeable. Office Visits / Consults: [id number] L4 Est
[2020-06-23 19:58] LABS: Protein, Urine (Random) 33.5 mg/dL (<11.9); Protein:Creat Ratio 103 mg/g CRE (0-200)
[2020-06-23] MEDS: Lactated Ringers 1,000 ML 15 ML IV (20:25)
[2020-06-23] MEDS: Magnesium Sulfate 4gm/100mL 4 GM/100 ML IV.SOLN. IV (20:35)
[2020-06-23] MEDS: Betamethasone/Betamethasone 30 MG/5 ML Vial 12 MG IM (20:44)
[2020-06-23] MEDS: Ondansetron 4 MG/2 ML Vial IV (20:51)
[2020-06-23] MEDS: Magnesium Sulfate 4gm/100mL 2 GM/50 ML IV.SOLN. IV (20:54)
[2020-06-23] MEDS: Magnesium Sulfate 20 GM/500 ML BAG IV (21:07)
--- NOTE | 2020-06-23 22:01 | NURSING ---
1915 at bedside with this RN discussing POC with patient and significant other; Orders received for protein/creatinine ratio and to initiate transport process; stated if ratio is elevated to call for magnesium sulfate infusion orders; this RN verbalized understanding.
--- NOTE | 2020-06-23 22:05 | NURSING ---
1999 This RN call to inform her of protein/creatinine ratio results and blood pressures ranging from 120's to 160's systolic; informed of no changes in assessment at this time; stated that she was going to call , the receiving physician, to discuss POC and will call this RN back.
--- NOTE | 2020-06-23 22:08 | NURSING ---
2005 Dr. Castro called this RN with orders to start a magnesium sulfate drip prior to transfer and [facility]; this RN verbalized understanding.
--- NOTE | 2020-06-23 22:40 | NURSING ---
2230 report called to Sheela Dillon RN at [facility] labor and delivery unit; transport at bedside and assuming care of patient at this time.
== END 2020-06-23 22:30 | disposition short-term general hospital (02) ==
LOC: ED 18:33 → WPOUT 22:09 → WP 22:10
PROVIDERS: Emergency Provider Emergency Medicine; Visit Provider Obstetrics & Gynecology
DX: O26.892 Other specified pregnancy related conditions, second trimester (principal); E86.0 Dehydration; R55 Syncope and collapse; O16.2 Unspecified maternal hypertension, second trimester; O99.212 Obesity complicating pregnancy, second trimester; E66.9 Obesity, unspecified; Z3A.24 24 weeks gestation of pregnancy; Z86.16 Personal history of COVID-19
CPT/HCPCS: 96365; 96367; 82565; 82570; 84156; 84450; 84460; 84484; 84550; 85027; 85610; 85730; 93005; 96372; 99218; 99282; J7120; A4216; G0378; J0702; J2405

== ENCOUNTER → 2020-07-18 12:31 | Outpatient (CLI) | payer MEDICAID, SELFPAY ==
[2020-05-20 09:36] VITALS: BMI 66.2
[2020-07-15 10:18] VITALS: BMI 67.4
--- NOTE | 2020-07-18 12:33 | US_ITS ---
STUDY: SECOND AND THIRD TRIMESTER OBSTETRICAL ULTRASOUND - LIMITED REASON FOR EXAM: Female, 29 years old routine survey LMP: 01/03/2020 PRIOR ULTRASOUND: 02/29/2020 TECHNIQUE: Transabdominal TECHNICAL QUALITY: Adequate. FINDINGS: There is a single intrauterine fetus. The fetus is in a breech presentation. There is demonstrated cardiac activity with a heart rate of 158 bpm. There is a normal amniotic fluid volume. The largest amniotic fluid pocket measures 3.4 cm. The placenta is anterior in location and is not low lying. There are Grade 1 placental changes. The cervix was not measured BIOMETRY: BPD: 6.8 cm: 27 weeks, 2 days HC: 24.9 cm: 27 weeks, 0 days AC: 23.9 cm: 28 weeks, 1 days FL: 5.4 cm: 28 weeks, 4 days Age by LMP: 28 weeks, 1 days. GARY by LMP: 10/09/2020. age by prior US: 27 weeks, 4 days. GARY by prior US: 10/13/2020. age by current US: 27 weeks, 4 days. GARY by current US: 10/13/2020. Estimated weight: 1205 grams, +/- 181 grams, 43 percentile. US/OB Limited With Biometrics IMPRESSION: Single live intrauterine at 27 weeks 4 days by current ultrasound GARY of 10/13/2020. Heart rate of 158 bpm. No suspicious sonographic findings. Normal growth noted since the previous study. Electronically Signed: Lewis Hassan MD at 16:31 EST , Service support ,
== END ==
PROVIDERS: PCP Family Medicine; Referring Provider Obstetrics & Gynecology; Visit Provider Obstetrics & Gynecology
DX: O32.1XX0 Maternal care for breech presentation, not applicable or unspecified (principal); Z3A.27 27 weeks gestation of pregnancy
CPT/HCPCS: 76816

== ENCOUNTER → 2020-08-02 11:39 | Outpatient (CLI) | payer MEDICAID, SELFPAY ==
[2020-07-15 10:18] VITALS: BMI 67.4
[2020-08-02 12:01] LABS: Absolute Lymphocyte Count 1.48 X10^3/uL (0.83-4.51); Absolute Neutrophil Count 7.6 X10^3/uL (2.0-7.7); Basophil# 0.03 X10^3/uL; Basophil% 0.3 % (0-1); Eosinophil# 0.13 X10^3/uL; Eosinophils% 1.3 % (0-5); Hematocrit 30.3 % (37-47); Hemoglobin 9.6 g/dL (12.0-15.0); Lymphocyte # 1.48 X10^3/ul (4.0); Lymphocyte % 15.3 % (19-41); Mean Corp Hgb Conc 31.7 g/dL (32-36); Mean Corpuscular Hgb 28.2 pg (27.0-32.0); Mean Corpuscular Volume 89.1 fL (81-99); Mean Platelet Vol. 9.7 fl (6.2-12.0); Monocyte# 0.37 X10^3/uL; Monocyte% 3.8 % (0-10); NRBC Flagged by Analyzer 0 % (0-5); Neutrophil # 7.55 X10^3/uL (2.7-7.7); Neutrophil % 78.3 % (47-70); Platelet Count 225 K/mm3 (150-450); RBC Distribution Width CV 16.8 % (11.6-14.6); White Blood Count 9.7 K/mm3 (4.4-11.0)
[2020-08-02 12:11] LABS: Glucose Challenge Gest 1H 50g 125 mg/dL (70-140)
== END ==
PROVIDERS: Obstetrics & Gynecology; Referring Provider Obstetrics & Gynecology; Visit Provider Obstetrics & Gynecology
DX: O09.90 Supervision of high risk pregnancy, unspecified, unspecified trimester (principal); Z13.1 Encounter for screening for diabetes mellitus; Z3A.00 Weeks of gestation of pregnancy not specified
CPT/HCPCS: 36415; 82950; 85025

== ENCOUNTER → 2020-08-05 11:08 | Outpatient (CLI) | payer MEDICAID, SELFPAY ==
[2020-08-05 10:00] VITALS: BMI 66.9
--- NOTE | 2020-08-05 11:11 | US_ITS ---
STUDY: OBSTETRICAL ULTRASOUND - BIOPHYSICAL PROFILE REASON FOR EXAM: Female, 29 years old non reactive NST -- BPP ONLY LMP: 01/03/2020. PRIOR ULTRASOUND: Comparison is made with prior study of 07/18/2020. TECHNIQUE: Transabdominal TECHNICAL QUALITY: Adequate. FINDINGS: There is a single intrauterine fetus. The fetus is in an transverse lie with the head on the maternal left side. There is demonstrated cardiac activity with a heart rate of 120 bpm. There is a normal amniotic fluid volume. The largest amniotic fluid pocket measures 5.1 cm. The amniotic fluid index (ADAMARIS) is 11.6 cm. The placenta is anterior in location and is not low lying. There are Grade 1 placental changes. Age by LMP: 30 weeks, 5 days. GARY by LMP: 10/19/2020. BIOPHYSICAL PROFILE: Breathing Movements (FBM): 2 Gross Body Movements (GBM): 2 Tone (FT): 2 Amniotic Fluid Volume (AFV): 2 TOTAL SCORE: 8 / 8 US/Biophysical Prof W/O Non Stres IMPRESSION: Normal biophysical profile of 12/15. Electronically Signed: Erick Rand MD at 12:22 EDT , Service support ,
== END ==
PROVIDERS: Referring Provider Obstetrics & Gynecology; Visit Provider Obstetrics & Gynecology
DX: O28.8 Other abnormal findings on antenatal screening of mother (principal)
CPT/HCPCS: 76819

== ENCOUNTER → 2020-08-15 12:52 | Outpatient (CLI) | payer MEDICAID, SELFPAY ==
[2020-05-20 09:36] VITALS: BMI 66.2
[2020-08-09 11:46] VITALS: BMI 66.6
--- NOTE | 2020-08-15 12:54 | US_ITS ---
STUDY: SECOND AND THIRD TRIMESTER OBSTETRICAL ULTRASOUND - LIMITED REASON FOR EXAM: Female, 29 years old routine survey LMP: 01/03/2020 PRIOR ULTRASOUND: 08/05/2020 TECHNIQUE: Transabdominal TECHNICAL QUALITY: Adequate. FINDINGS: There is a single intrauterine fetus. The fetus is in a breech presentation. There is demonstrated cardiac activity with a heart rate of 139 bpm. There is a normal amniotic fluid volume. The largest amniotic fluid pocket measures 6.69 cm. The amniotic fluid index (ADAMARIS) is 13.39 cm. The placenta is anterior in location and is not low lying. There are Grade 1 placental changes. The cervix measures 3.2 cm in length. BIOMETRY: BPD: 7.56 cm: 30 weeks, 3 days HC: 28.59 cm: 31 weeks, 3 days AC: 28.0 cm: 32 weeks, 1 days FL: 6.19 cm: 32 weeks, 1 days Age by LMP: 32 weeks, 1 days. GARY by LMP: 10/09/2020. age by prior US: 31 weeks, 4 days. GARY by prior US: 10/13/2020. age by current US: 31 weeks, 4 days. GARY by current US: 10/13/2020. Estimated weight: 1849 grams, +/- 270 grams, 30 percentile. US/OB Limited With Biometrics IMPRESSION: Single live intrauterine at 31 weeks, 4 days by current ultrasound GARY of 10/13/2020. Heart rate of 139 bpm. There is been normal growth since the previous study. Presentation on current study is breech. Electronically Signed: Lewis Hassan MD at 14:50 EDT , Service support ,
== END ==
PROVIDERS: PCP Family Medicine; Referring Provider Obstetrics & Gynecology; Visit Provider Obstetrics & Gynecology
DX: U07.1 COVID-19 (principal)
CPT/HCPCS: 76816

== ENCOUNTER 2020-08-21 14:10 | Outpatient (CLI) | payer MEDICAID, SELFPAY ==
[2020-08-09 11:46] VITALS: BMI 66.6
--- NOTE | 2020-08-21 13:09 | US_ITS ---
STUDY: OBSTETRICAL ULTRASOUND - BIOPHYSICAL PROFILE REASON FOR EXAM: Female, 30 years old well being. Nonreactive NST. LMP: 01/03/2020. PRIOR ULTRASOUND: Comparison is made with prior examination dated 08/15/2020. TECHNIQUE: Transabdominal TECHNICAL QUALITY: Adequate. FINDINGS: There is a single intrauterine fetus. The fetus is in an transverse lie with the head on the maternal left side. There is demonstrated cardiac activity with a heart rate of 166 bpm. There is a normal amniotic fluid volume. The largest amniotic fluid pocket measures 3.9 cm. The amniotic fluid index (ADAMARIS) is 10.3 cm. The placenta is anterior in location and is not low lying. There are Grade 1 placental changes. Age by LMP: 33 weeks, 0 days. GARY by LMP: 10/09/2020. Gender: Female BIOPHYSICAL PROFILE: Breathing Movements (FBM): 0 Gross Body Movements (GBM): 2 Tone (FT): 2 Amniotic Fluid Volume (AFV): 2 TOTAL SCORE: US/Biophysical Prof W/O Non Stres IMPRESSION: biophysical profile of 10/15. Electronically Signed: Erick Rand MD at 15:20 EDT , Service support ,
[2020-08-21 14:19] VITALS: BMI 67.0
[2020-08-21 14:27] VITALS: PULSE 88; O2SAT 96
[2020-08-21 14:29] VITALS: TEMP 36.6
[2020-08-21 14:30] VITALS: BP 107/58; PULSE 90
--- NOTE | 2020-08-22 13:02 | OB.TRI.PN_ITS ---
Progress Notes Date of Service: 08/21/20 Progress Note: Patient presents for triage evaluation secondary to 68 BPP. NST reactive. FHT: Moderate variability reactive no decelerations category I tracing Combined Locks: No Contractions Assessment and plan: Reactive NST, reassuring maternal and status patient discharged to home to follow-up at next scheduled visit. See problem list details for additional plan information. Multi Select Codes - Urinary/Genital Urinary/Genital CPT Codes: 84077-75 non-stress test Interp
== END 2020-08-21 15:10 | disposition home or self-care (01) ==
LOC: WPOUT 14:15 → OPUS 14:16 → WPOUT 14:16 → WP 14:17
PROVIDERS: PCP Family Medicine; Referring Provider Obstetrics & Gynecology; Visit Provider Obstetrics & Gynecology
DX: O16.2 Unspecified maternal hypertension, second trimester (principal); O99.210 Obesity complicating pregnancy, unspecified trimester; Z3A.00 Weeks of gestation of pregnancy not specified
CPT/HCPCS: 59025; 59050; 76819; 99218; G0378

== ENCOUNTER → 2020-08-27 08:28 | Outpatient (CLI) | payer MEDICAID, SELFPAY ==
[2020-08-21 14:19] VITALS: BMI 67.0
[2020-08-26 10:09] VITALS: BMI 67.9
--- NOTE | 2020-08-27 08:31 | US_ITS ---
STUDY: OBSTETRICAL ULTRASOUND - BIOPHYSICAL PROFILE REASON FOR EXAM: Female, 30 years old well being . LMP: 01/03/2020. PRIOR ULTRASOUND: Comparison is made with prior study dated 08/21/2020. TECHNIQUE: Transabdominal TECHNICAL QUALITY: Adequate. FINDINGS: There is a single intrauterine fetus. The fetus is in a breech presentation. There is demonstrated cardiac activity with a heart rate of 138 bpm. There is a normal amniotic fluid volume. The largest amniotic fluid pocket measures 4.5 cm x 5.5 cm. The amniotic fluid index (ADAMARIS) is 13.5 cm. The placenta is anterior in location and is not low lying. There are Grade 1 placental changes. Age by LMP: 33 weeks, 6 days. GARY by LMP: 10/09/2020. BIOPHYSICAL PROFILE: Breathing Movements (FBM): 2 Gross Body Movements (GBM): 2 Tone (FT): 2 Amniotic Fluid Volume (AFV): 2 TOTAL SCORE: 8 / 8 US/Biophysical Prof W/O Non Stres IMPRESSION: Normal biophysical profile of 8/8. Electronically Signed: Erick Rand MD at 13:21 EDT , Service support ,
== END ==
PROVIDERS: PCP Family Medicine; Referring Provider Obstetrics & Gynecology; Visit Provider Obstetrics & Gynecology
DX: O99.210 Obesity complicating pregnancy, unspecified trimester (principal); Z3A.00 Weeks of gestation of pregnancy not specified
CPT/HCPCS: 76819

== ENCOUNTER → 2020-09-02 14:30 | Outpatient (CLI) | payer MEDICAID, SELFPAY ==
[2020-08-26 10:09] VITALS: BMI 67.9
[2020-09-02 14:01] VITALS: BMI 67.3
--- NOTE | 2020-09-02 14:33 | US_ITS ---
STUDY: OBSTETRICAL ULTRASOUND - BIOPHYSICAL PROFILE REASON FOR EXAM: Female, 30 years old well being LMP: 01/03/2012. PRIOR ULTRASOUND: Comparison is made with prior study dated 08/27/2020. TECHNIQUE: Transabdominal TECHNICAL QUALITY: Adequate. FINDINGS: There is a single intrauterine fetus. The fetus is in a cephalic presentation. There is demonstrated cardiac activity with a heart rate of 140 bpm. There is a normal amniotic fluid volume. The largest amniotic fluid pocket measures 3.7 cm. The amniotic fluid index (ADAMARIS) is 8.3 to cm. The placenta is anterior in location and is not low lying. There are Grade 1 placental changes. Age by LMP: 34 weeks, 5 days. GARY by LMP: 10/09/2020. BIOPHYSICAL PROFILE: Breathing Movements (FBM): 2 Gross Body Movements (GBM): 2 Tone (FT): 2 Amniotic Fluid Volume (AFV): 2 TOTAL SCORE: 8 / 8 US/Biophysical Prof W/O Non Stres IMPRESSION: Normal biophysical profile of 12/15. Electronically Signed: Erick Rand MD at 15:31 EDT , Service support ,
== END ==
PROVIDERS: PCP Family Medicine; Referring Provider Obstetrics & Gynecology; Visit Provider Obstetrics & Gynecology
DX: O99.210 Obesity complicating pregnancy, unspecified trimester (principal); E66.9 Obesity, unspecified; Z3A.00 Weeks of gestation of pregnancy not specified
CPT/HCPCS: 76819

== ENCOUNTER → 2020-09-12 12:23 | Outpatient (CLI) | payer MEDICAID, SELFPAY ==
[2020-05-20 09:36] VITALS: BMI 66.2
[2020-09-09 09:48] VITALS: BMI 67.3
--- NOTE | 2020-09-12 12:29 | US_ITS ---
STUDY: SECOND AND THIRD TRIMESTER OBSTETRICAL ULTRASOUND - LIMITED REASON FOR EXAM: Female, 30 years old 36 weeks growth LMP: 01/03/2020 PRIOR ULTRASOUND: 09/02/2020 TECHNIQUE: Transabdominal TECHNICAL QUALITY: Adequate. FINDINGS: There is a single intrauterine fetus. The fetus is in a cephalic presentation. There is demonstrated cardiac activity with a heart rate of 140 bpm. There is a normal amniotic fluid volume. The largest amniotic fluid pocket measures 4.4 cm. The amniotic fluid index (ADAMARIS) is 12.5 cm. The placenta is anterior in location and is not low lying. There are Grade 2 placental changes. The cervix measures cm in length. BIOMETRY: BPD: 8.7 cm: 35 weeks, 1 days HC: 31.2 cm: 34 weeks, 6 days AC: 32.6 cm: 36 weeks, 3 days FL: 7.0 cm: 35 weeks, 6 days Age by LMP: 36 weeks, 1 days. GARY by LMP: 10/09/2020. age by current US: 35 weeks, 2 days. GARY by current US: 10/15/2020. Estimated weight: 2890 grams, +/- 434 grams, 55 percentile. Gender: US/OB Limited With Biometrics IMPRESSION: Living intrauterine of 35 weeks 2 days as described above. Electronically Signed: Grabiel Doty MD at 14:14 EDT Tel , Service support ,
--- NOTE | 2020-09-12 12:29 | US_ITS ---
STUDY: OBSTETRICAL ULTRASOUND - BIOPHYSICAL PROFILE REASON FOR EXAM: Female, 30 years old well being LMP: 01/03/2020 PRIOR ULTRASOUND: 09/02/2020 TECHNIQUE: Transabdominal TECHNICAL QUALITY: Adequate. FINDINGS: There is a single intrauterine fetus. The fetus is in a cephalic presentation. There is demonstrated cardiac activity with a heart rate of 150 bpm. There is a normal amniotic fluid volume. The largest amniotic fluid pocket measures 4.8 cm. The amniotic fluid index (ADAMARIS) is 12.2 cm. The placenta is anterior in location and is not low lying. There are Grade 0 placental changes. Age by LMP: 36 weeks, 1 days. GARY by LMP: 10/09/2020. BIOPHYSICAL PROFILE: Breathing Movements (FBM): 2 Gross Body Movements (GBM): 2 Tone (FT): 2 Amniotic Fluid Volume (AFV): 2 TOTAL SCORE: 8 / 8 US/Biophysical Prof W/O Non Stres IMPRESSION: Normal biophysical profile of 8/8. Electronically Signed: Grabiel Doty MD at 14:16 EDT Tel , Service support ,
== END ==
PROVIDERS: Referring Provider Obstetrics & Gynecology; Visit Provider Obstetrics & Gynecology
DX: O98.513 Other viral diseases complicating pregnancy, third trimester (principal); U07.1 COVID-19; O99.213 Obesity complicating pregnancy, third trimester; Z3A.35 35 weeks gestation of pregnancy
CPT/HCPCS: 76816; 76819

== ENCOUNTER → 2020-09-18 | Outpatient (CLI) | payer MEDICAID, SELFPAY ==
[2020-09-18 08:38] VITALS: BMI 67.3
== END | disposition home or self-care (01) ==
LOC: LABSPEC 12:10
PROVIDERS: Referring Provider Obstetrics & Gynecology; Visit Provider Obstetrics & Gynecology
DX: O09.90 Supervision of high risk pregnancy, unspecified, unspecified trimester (principal); Z3A.00 Weeks of gestation of pregnancy not specified
CPT/HCPCS: 87081

== ENCOUNTER → 2020-09-23 09:35 | Outpatient (CLI) | payer MEDICAID, SELFPAY ==
[2020-09-18 08:38] VITALS: BMI 67.3
--- NOTE | 2020-09-23 09:36 | US_ITS ---
STUDY: OBSTETRICAL ULTRASOUND - BIOPHYSICAL PROFILE REASON FOR EXAM: Female, 30 years old. well being PRIOR ULTRASOUND: 09/12/20 TECHNIQUE: Transabdominal ultrasound evaluation was performed. FINDINGS: There is a single intrauterine fetus. The fetus is in a cephalic presentation. There is demonstrated cardiac activity with a heart rate of 132 bpm. There is a normal amniotic fluid volume. The amniotic fluid index (ADAMARIS) is 9.8 cm. The placenta is anterior in location and is not low lying. BIOPHYSICAL PROFILE: Breathing Movements (FBM): 2 Gross Body Movements (GBM): 2 Tone (FT): 2 Amniotic Fluid Volume (AFV): 2 TOTAL SCORE: US/Biophysical Prof W/O Non Stres IMPRESSION: Normal biophysical profile of 12/15. Electronically Signed: Adalid Rowley MD at 8:24 EDT Tel , Service support ,
[2020-09-23 18:29] LABS: Protein, Urine (Random) 112.5 mg/dL (<11.9); Protein:Creat Ratio 454 mg/g CRE (0-200)
== END ==
PROVIDERS: Referring Provider Obstetrics & Gynecology; Visit Provider Obstetrics & Gynecology
DX: O99.210 Obesity complicating pregnancy, unspecified trimester (principal); O12.10 Gestational proteinuria, unspecified trimester; Z3A.00 Weeks of gestation of pregnancy not specified
CPT/HCPCS: 76819; 82570; 84156

== ENCOUNTER → 2020-09-27 14:53 | Outpatient (CLI) | payer MEDICAID, SELFPAY ==
[2020-09-09 09:48] VITALS: BMI 67.3
[2020-09-23 10:36] VITALS: BMI 67.3
== END ==
PROVIDERS: Visit Provider Obstetrics & Gynecology
DX: O09.90 Supervision of high risk pregnancy, unspecified, unspecified trimester (principal)
CPT/HCPCS: 87635; C9803; U0002

== ENCOUNTER 2020-10-02 05:05 | Inpatient (IN) | payer MEDICAID, SELFPAY ==
[2020-08-26 10:09] VITALS: BMI 67.9
[2020-09-27 16:10] VITALS: BMI 67.3
[2020-10-02] VITALS (18 sets, daily range): BP systolic 93–141; BP diastolic 51–86; PULSE 60–99; RESP 16–18; TEMP 36–36.3; O2SAT 96–99; BMI 68.0
[2020-10-02] MEDS: Lactated Ringers 1,000 ML 999 ML IV (05:30)
[2020-10-02 05:43] LABS: Absolute Lymphocyte Count 1.82 X10^3/uL (0.83-4.51); Absolute Neutrophil Count 7.3 X10^3/uL (2.0-7.7); Basophil# 0.03 X10^3/uL; Basophil% 0.3 % (0-1); Eosinophil# 0.18 X10^3/uL; Eosinophils% 1.8 % (0-5); Hematocrit 29.4 % (37-47); Lymphocyte # 1.82 X10^3/ul (0.83-4.51); Lymphocyte % 18.3 % (19-41); Mean Corp Hgb Conc 30.6 g/dL (32-36); Mean Corpuscular Hgb 27.3 pg (27.0-32.0); Mean Corpuscular Volume 89.1 fL (81-99); Mean Platelet Vol. 10.1 fl (6.2-12.0); Monocyte# 0.53 X10^3/uL; Monocyte% 5.3 % (0-10); NRBC Flagged by Analyzer 0 % (0-5); Neutrophil # 7.29 X10^3/uL (2.7-7.7); Neutrophil % 73.6 % (47-70); Platelet Count 289 K/mm3 (150-450); RBC Distribution Width CV 17.2 % (11.6-14.6); RBC Distribution Width SD 55.3 fl (35.1-43.9); White Blood Count 9.9 K/mm3 (4.4-11.0)
[2020-10-02] MEDS: Acetaminophen 500 MG Tablet 1000 MG PO ×3 (05:58→17:45)
[2020-10-02] MEDS: Lactated Ringers 1,000 ML 150 ML IV (06:34)
--- NOTE | 2020-10-02 06:36 | HP.PCM.OB_ITS ---
HPI - General General Date of Admission: 10/02/20 HPI Narrative GLENROY HODGES, is a 30 F at 39 weeks gestation who presents for scheduled repeat and tubal ligation Maternal Data Information GARY Calculator Estimated Delivery Date Method Current WG Current Estimate 10/09/20 LMP (Certain) 39w 0d Other Estimates 10/15/20 Ultrasound #1 38w 1d PFSH Medical History Hypertension affecting in second trimester Insulin resistance complicating Lab test positive for detection of COVID-19 virus Obesity affecting Supervision of high risk , antepartum Syncope Home Medications vit,[id number] 1 tablet PO DAILY 11/23/17 [History Last Taken 09/30/20] aspirin 81 mg tablet,delayed release 81 mg PO DAILY 05/20/20 [History Last Taken 09/27/20] compr.stocking,knee,long,x-lrg #2 each 06/28/20 [Rx Last Taken 08/20/20] ferrous sulfate 325 mg (65 mg iron) tablet 325 mg PO DAILY 08/09/20 [History Last Taken 09/27/20] Allergy/AdvReac Type Severity Reaction Status Date / Time latex Allergy Mild Rash Verified 10/02/20 05:26 Penicillins Allergy Other Verified 10/02/20 05:26 codeine AdvReac Unknown Other Verified 10/02/20 05:26 hydrocodone [From Vicodin] AdvReac Other Verified 10/02/20 05:26 Surgical History History of delivery History of placement of ear tubes History of tonsillectomy Hx of cholecystectomy Social History adopted: No household members: family number of children: 1 Smoking Status: Never smoker second hand exposure: No alcohol intake: never substance use type: does not use caffeine: Yes seatbelt use: always do you feel safe at home: Yes additional social history: Kristopher History 2 Elective abortions Hx Para 1 Spontaneous abortions Hx # Term Pregnancies Ectopic pregnancies Hx # Pregnancies Multiple births # of living children 1 Past Pregnancies Del. Date Name GA/Weeks Outcome Route Bth Weight Gen Labor Lgth Ane sthesia Del Locatn Provider FOB 06/10/18 Junaid 40 live - full term 8lbs 9oz Male 36 hours epidural [facility] Kristopher Delivery Date: 06/10/18 FTP, CPD, Tayler Spence Visit Details Expected Delivery Route/Plan RLTCS w/BTL with GP 10/02 : [] PP control planned: BTL - T19 08/26 special requests: [] Plans flu vaccine: decline tdap vaccine: declines rhogam: NA LARC form signed: 08/26 Problem list reviewed and updated with the most current plan of care details and appropriate orders placed. Relevant counseling for the gestational age provided. Continue routine care and follow up unless otherwise noted in visit notes/problem list details OB Flowsheet Initial Weight: Not Recorded Date -?-?-?-?-?-?-?-?-?-?-?-?- EGA Weight BP Urine Prot -?-?-?-?-?-?-?-?-?-?-?-?- Glucose FHR FuHt Pres Dilation -?-?-?-?-?-?-?-?-?-?-?-?- Effaced St Visit Note 03/27/20 -?-?-?-?-?-?-?-?-?-?-?-?- 12w 0d 389 lb 8 oz 110/70 -?-?-?-?-?-?-?-?-?-?-?-?- 170 -?-?-?-?-?-?-?-?-?-?-?-?- GP - CRL 40.5mm consistent with LMP. GP - CRL 40.5mm consistent w ith LMP and prior US 04/22/20 -?-?-?-?-?-?-?-?-?-?-?-?- 15w 5d 387 lb 112/82 -?-?-?-?-?-?-?-?-?-?-?-?- 150 -?-?-?-?-?-?-?-?-?-?-?-?- GP - no cramping or bleeding. Discussed insufficient fraction and possible relation to chromosomal abnormalities. Reinforced need for genetic counseling. 05/20/20 -?-?-?-?-?-?-?-?-?-?-?-?- 19w 5d 386 lb 122/86 -?-?-?-?-?-?-?-?-?-?-?-?- 155 -?-?-?-?-?-?-?-?-?-?-?-?- Sm- no vb lof cr amping 06/20/20 -?-?-?-?-?-?-?-?-?-?-?-?- 24w 1d 391 lb 4 oz 120/72 Nega tive -?-?-?-?-?-?-?-?-?-?-?-?- Negative 150 -?-?-?-?-?-?-?-?-?-?-?-?- SM- no vb lof go od fm no regular ctx 06/28/20 -?-?-?-?-?-?-?-?-?-?-?-?- 25w 2d 386 lb 102/66 -?-?-?-?-?-?-?-?-?-?-?-?- -?-?-?-?-?-?-?-?-?-?-?-?- 07/15/20 -?-?-?-?-?-?-?-?-?-?-?-?- 27w 5d 393 lb 118/72 Negative -?-?-?-?-?-?-?-?-?-?-?-?- Negative 155 -?-?-?-?-?-?-?-?-?-?-?-?- GP - no LOF, VB, DFM, ctx. Getting 28w labs later this week. 08/05/20 -?-?-?-?-?-?-?-?-?-?-?-?- 30w 5d 390 lb 120/72 Negative -?-?-?-?-?-?-?-?-?-?-?-?- Negative 140 -?-?-?-?-?-?-?-?-?-?-?-?- GP -no LOF, VB, ctx. DFM over last week BPP ordered today. Discussed iron supplements. Discussed passed GCT. 08/21/20 -?-?-?-?-?-?-?-?-?-?-?-?- 33w 0d 390 lb 2 oz 118/70 -?-?-?-?-?-?-?-?-?-?-?-?- -?-?-?-?-?-?-?-?-?-?-?-?- Unable to comple te NST due to body habitus, activity. To WP 08/26/20 -?-?-?-?-?-?-?-?-?-?-?-?- 33w 5d 396 lb 120/76 Negative -?-?-?-?-?-?-?-?-?-?-?-?- Negative 140 34 -?-?-?-?-?-?-?-?-?-?-?-?- GP - no LOF, VB, DFM, ctx. Scheduled for weekly BPPs. Plan RLTCS with BTL on 10/02. T19 signed. 09/02/20 -?-?-?-?-?-?-?-?-?-?-?-?- 34w 5d 392 lb 120/78 -?-?-?-?-?-?-?-?-?-?-?-?- 145 35 -?-?-?-?-?-?-?-?-?-?-?-?- GP - no LOF, VB, DFM, ctx. Still having syncopal episodes - had 2 at work last night. Will start maternity leave at this time. 09/09/20 -?-?-?-?-?-?-?-?-?-?-?-?- 35w 5d 392 lb 120/82 -?-?-?-?-?-?-?-?-?-?-?-?- 140 36 -?-?-?-?-?-?-?-?-?-?-?-?- SM- no vb lof go od fm no regular ctx 09/18/20 -?-?-?-?-?-?-?-?-?-?-?-?- 37w 0d 390 lb 4 oz 128/74 Nega tive -?-?-?-?-?-?-?-?-?-?-?-?- Negative 155 38 -?-?-?-?-?-?-?-?-?-?-?-?- GP - no LOF, VB, DFM, ctx. Denies complaints. GBS today. 09/23/20 -?-?-?-?-?-?-?-?-?-?-?-?- 37w 5d 393 lb 3+ -?-?-?-?-?-?-?-?-?-?-?-?- Negative 145 39 -?-?-?-?-?-?-?-?-?-?-?-?- SM- no vb lof go od fm no regular ctx. 09/27/20 -?-?-?-?-?-?-?-?-?-?-?-?- 38w 2d 392 lb 6 oz 122/76 1+ -?-?-?-?-?-?-?-?-?-?-?-?- Negative -?-?-?-?-?-?-?-?-?-?-?-?- 10/02/20 -?-?-?-?-?-?-?-?-?-?-?-?- 39w 0d 396 lb 3.2 oz 136/68 136/68 -?-?-?-?-?-?-?-?-?-?-?-?- -?-?-?-?-?-?-?-?-?-?-?-?- GP - scheduled R CD with BTL ROS Eyes Eyes: Reports systems reviewed and no addt'l complaints, except as documented ENT HEENT: Reports systems reviewed and no addt'l complaints, except as documented Cardiovascular Cardiovascular: Reports systems reviewed and no addt'l complaints, except as documented Respiratory/Chest Respiratory/Chest: Reports systems reviewed and no addt'l complaints, except as documented Gastrointestinal Gastrointestinal: Reports systems reviewed and no addt'l complaints, except as documented Genitourinary Genitourinary: Reports systems reviewed and no addt'l complaints, except as documented Musculoskeletal Musculoskeletal: Reports systems reviewed and no addt'l complaints, except as documented Integumentary Integumentary: Reports systems reviewed and no addt'l complaints, except as documented Neurologic Neurologic: Reports systems reviewed and no addt'l complaints, except as documented Psychiatric Psychiatric: Reports systems reviewed and no addt'l complaints, except as documented Endocrine Endocrinology: Reports systems reviewed and no addt'l complaints, except as documented Hematologic/Lymphatic Hematologic/Lymphatic: Reports systems reviewed and no addt'l complaints, except as documented Allergic/Immunologic Allergic/Immunologic: Reports systems reviewed and no addt'l complaints, except as documented Vital Signs Vital Signs Vital Signs: 10/02/20 05:19 10/02/20 05:42 Temperature 97.4 F L Temperature Source Temporal Pulse Rate 99 83 Respiratory Rate 18 Blood Pressure 136/68 H Blood Pressure Mean 90 BP Systolic 136 BP Diastolic 68 Blood Pressure Source Monitor Blood Pressure Position Semi-Fowlers Blood Pressure Location Right Arm Pulse Ox 97 98 Weight Weight: 396 lb 3.2 oz Body Mass Index (BMI) 68.0 Physical Exam Const alert, oriented x3, no apparent distress, average body habitus, healthy appearing and well nourished HEENT normocephalic and moist oral mucous membranes Head and Scalp: atraumatic Eyes PERRL and EOMs intact bilaterally Neck full ROM Resp normal respiratory effort, no retractions and no use of accessory muscles Cardio regular rate and regular rhythm GI soft to palpation, non-tender and non-distended Extremity normal to inspection and full ROM Skin no rashes or lesions noted Neuro no focal motor deficits and no sensory deficits noted Psych mental status grossly normal, affect normal, speech normal and activity/motor behavior normal Labs Labs Labs: Blood Type O POSITIVE Antibody Screen NEGATIVE Hct 29.4 % (37-47) L Hgb 9.0 g/dL (12.0-15.0) L Obstetrics US Rubella IgG Antibody Reactive (Nonreactive) Hep Bs Antigen Non-Reactive (Nonreactive) Neisseria gonorrhoeae DNA (CHRIS) Negative (Negative) HIV 1&2 Antibody Non-Reactive (Nonreactive) C.trachomatis DNA (PCR) Negative (Negative) Glucose 1 Hr 50 gm 125 mg/dL (70-140) Rhogam given: No Miscellaneous Test Assessment & Plan (1) History of delivery: COMMENT: previous cs with SM for CPD AOD. RLTCS BS 10/02/20 @ 7:30am PLAN: Presents for RCD with BTL Plan Ancef 3g for infection ppx (2) Postural dizziness with presyncope: COMMENT: believe vasovagal in nature (3) Syncope: QUALIFIERS: Encounter type: subsequent encounter COMMENT: Admitted at [facility] 06/23-06/25. Had cardiac workup. Told episodes likely due to vasodilation. Prescribed compression stockings. Discussed increased fluids and increased salt intake. Still having syncopal episodes - plan cardiology referral (4) Obesity affecting : QUALIFIERS: Trimester: third trimester Qualified Code(s): O99.213 - Obesity complicating , third trimester COMMENT: Discussed expected weight gain. Early 1h GCT-normal. Weekly BPPs (instead of NSTs per GP) and q4 growth US; 08/19 GROWTH NL 08/27 BPP nl 09/16/20 36w growth- nl (5) Supervision of high risk , antepartum: COMMENT: PRR GARY 10/09/20 girl PC: Junaid Spouse: Kristopher (6) Lab test positive for detection of COVID-19 virus: COMMENT: positive test 03/12/20, advised 81mg aspirin and growth US @ 28 wks (7) : QUALIFIERS: Weeks of gestation: 37 weeks Qualified Code(s): Z3A.37 - 37 weeks gestation of COMMENT: neg. GBS, genetic- NIPT drawn x2 came back as insufficient DNA- MFM appt 05/01, AFP- negative declines carrier; 05/28/20- Echo is recommended; follow up [id number] to evaluate biometric parameters and anatomy beginning at viability, once weekly BPP starting at 32 weeks weekly NSTs
[2020-10-02] MEDS: Sodium Citrate/Citric Acid 30 ML UDC PO (07:10)
--- NOTE | 2020-10-02 08:19 | FALS_PTH ---
PATIENT: GLENROY HODGES LOC: WP U#:[id number] AGE/SX: 30/F ROOM: WP004 RE10/02/[address]: Dr. Loretta Castro MD : 1990 BED: 1 DIS: 10/04/2020 SPEC #: [id number] RECD: 10/02/20 11:42 STATUS: CHRISTINE RELorne #: [id number] NENO: 10/02/20 08:[address]: Loretta Castro DEPT: SURGICAL PATHOLOGY RECD BY: Jadyn Gill ENTERED: 10/02/20 13:04 SP TYPE: FALL TUBES OTHR DR: Oneyda Primary Care Phys Tissues: Fallopian tube Procedures: Surgery Specimen Level II HEADER OPERATION: Tubal ligation PRE-OP DIAGNOSIS: Sterilization TISSUE SUBMITTED: Fallopian tubes, suture in right tube MICROSCOPIC DIAGNOSIS Bilateral fallopian tubes, salpingectomy: Bilateral fallopian tubes, no pathologic diagnosis. BARRIE:fern 10/03/2020 MICROSCOPIC DESCRIPTION Slides are reviewed. GROSS DESCRIPTION Received in fixative is one container labeled with the patient's name and designated bilateral fallopian tubes, right stitch. The specimen consists of bilateral fallopian tubes including fimbrial ends. The right fallopian tube measures 6.5 cm in length and 1 cm in diameter and left fallopian tubes measures 6 cm in length and 1 cm in diameter. Sections reveal unremarkable cut surfaces. Recreation Coordinator sections are submitted in two cassettes as follows: 1 ? right fallopian tube, 2 ? left fallopian tube. / BARRIE:fern 10/02/20 TC:4 CPT: 56476 x2
--- NOTE | 2020-10-02 09:11 | OP.PCM_ITS ---
Maternal Data Information GARY Calculator Estimated Delivery Date Method Current WG Current Estimate 10/09/20 LMP (Certain) 39w 0d Other Estimates 10/15/20 Ultrasound #1 38w 1d Details Operative Information Date of Procedure: 10/02/20 Pre-Operative Diagnosis: Term , hx , declines TOLAC, desire for permanent sterilization Post-Operative Diagnosis: Same Indications for : Repeat Elective Indications Narrative: 30-year-old G2, P1 at 39 weeks gestation presents for repeat section and tubal ligation Classification: Scheduled Procedure Type: low transverse (With bilateral salpingectomy) almond blancher hand #1: Clayton Boswell Type of Anesthesia: Spinal Antibiotic Given: Ancef 3 grams IV x1 Drain: Gates to straight drain Estimated Blood Loss: 700 Fluids Replaced: 1400 Findings Description of Procedure: The patient is a G2, P1 at 39 weeks who presented for repeat . Spinal anesthesia was placed without difficulty. Gates catheter was placed. The patient was placed in the dorsal supine position with leftward tilt. Patient was prepped and draped in the normal sterile fashion. Pfannenstiel skin incision was made with the scalpel and carried through to the underlying layer of fascia with the scalpel. Fascia was nicked in the midline and the incision extended laterally. The rectus bellies were dissected off superiorly and inferiorly with out complication both sharply and bluntly. The peritoneum was entered digitally. The incision was stretched and a low transverse uterine incision was made with the scalpel. The 's head was delivered atraumatically followed by the anterior and posterior shoulders without complication the rest of the delivered. The cord was clamped and cut and the was handed off to awaiting nurse. The placenta was delivered spontaneously immediately following and was noted to be intact and have a three- vessel cord. The uterus was exteriorized cleared of all clots and debris, and the incision was closed in a double layer closure using #1 Monocryl. The ovaries and fallopian tubes were noted to be within normal limits. The fallopian tubes were identified and grasped bilaterally with Isabella clamps. Essure device was used to cauterize and transect the mesosalpinx and the tube was amputated. The area was reinspected and good hemostasis was noted. The uterus was returned to the maternal abdomen and gutters were cleared of all clots and debris. The peritoneum was closed with 3-0 Monocryl in a running fashion. Gloves were changed prior to fascial closure. Fascia was closed with 0 PDS in a running fashion. Subcutaneous tissue was copiously irrigated and the skin was closed with 3-0 Monocryl in a subcuticular fashion. Mepilex dressing was applied without complication. Patient was taken to recovery in stable condition. Presentation: Positive for Vertex Amniotic Membrane Rupture Type: Artificial Amniotic Fluid Description: Clear Placental Delivery Description: Expressed Placenta Disposition: [facility] Cord Vessel Description: 3 Vessels Cord Entanglement: None Infant A Gender: Female Delayed Cord Clamping: Yes Complications Risks of Surgery Discussed w/Patient: Bleeding, Anesthesia Risks, Infection, Need for Future C-Sections, Permanency, Failure Rate of 1 to 2%, Injury to surrounding structure(s) including bowel and bladder and Availability of other non-permanent control options Multi Select Codes Urinary/Genital Urinary/Genital CPT Codes: 82788 PPTL (bilateral salpingectomy) and 60820 delivery+ Care([facility])
[2020-10-02] MEDS: Ketorolac 30 MG/ML Syringe IV ×3 (09:55→22:08)
[2020-10-02] MEDS: Oxytocin 30 units/NS 500 ml 30 UNITS/500 ML IV.SOLN 167 UNITS IV (09:58)
[2020-10-02] MEDS: oxyCODONE 5 MG Tablet PO ×3 (10:39→20:50)
[2020-10-02] MEDS: HYDROmorphone 0.5 MG/0.5 ML SYRINGE IV ×3 (11:26→22:57)
[2020-10-02 11:44] LABS: Pathology Specimen OB SEE PATHOLOGY REPORT
[2020-10-02] MEDS: Senna/Docusate Sodium 1 Tablet PO (12:45)
[2020-10-02] MEDS: Lactated Ringers 1,000 ML 100 ML IV (13:50)
[2020-10-02] MEDS: 0.9% Saline Lock 10 ML Syringe IV ×3 (15:30→22:57)
[2020-10-02] MEDS: Enoxaparin 40 MG/0.4 ML Syringe SC (19:56)
--- NOTE | 2020-10-02 23:04 | PCM.DC ---
Discharge Instructions Diet Discharge Diet: No restrictions Activity Discharge Activity: May Not Drive (for 2 weeks or while taking narcotic pain meds.), May Shower and May Take a Tub Bath (in 7 days.) May resume sexual activity in: 4-6 weeks Lifting Restrictions: 20 pounds Additional Activity Instructions:: Nothing in the vagina for 4-6 weeks. You may return to work/school in 6 weeks. Dressing / Incision Call your doctor if your incision/area has: Continuous Slow Oozing, Sudden Increased Bleeding, Increased Pain/ Swelling, Increased Redness and Foul Smelling Discharge Call your doctor if you observe: Fever of 101 or Higher Suture Line Care: Avoid Pulling/Pushing and Avoid Pinching/Bending Follow Up Care Test Results: Test results from this visit will be discussed in further detail at your follow-up appointment, if applicable. Discharge Plan Admission Admit Date/Time: 10/02/20 05:05 Primary Reason for Your Visit: Repeat Attending Provider: Loretta Castro Primary Care Provider: Jose Alberto Physician,No Primary Instructions Patient Instructions: After a Discharge Orders/Prescriptions Prescriptions: New naproxen 250 MG tablet 250 - 500 mg PO Q8H PRN PRN (Reason: MILD PAIN) Qty: 30 RF: 1 oxycodone 5 mg capsule 5 mg PO Q6H PRN (Reason: pain) 7 Days Qty: 15 RF: 0 Continued aspirin [Adult Aspirin Regimen] 81 mg tablet,delayed release (DR/EC) 81 mg PO DAILY RF: 0 (DME) compr.stocking,knee,long,x-lrg Misc See Rx Instructions .ROUTE .MEDSUPPLY Qty: 2 RF: 0 ferrous sulfate 325 mg (65 mg iron) tablet 325 mg PO DAILY RF: 0 vit,mudn31-fhty-avxct 1 TABLET tablet 1 tablet PO DAILY RF: 0 Referrals / Follow Up: Care Physician,No Primary [Primary Care Provider] -
[2020-10-03 00:35] VITALS: BP 119/56; PULSE 78; RESP 16; TEMP 36.1; O2SAT 98
[2020-10-03] MEDS: Acetaminophen 500 MG Tablet 1000 MG PO ×4 (00:35→18:10)
[2020-10-03 03:47] VITALS: BP 121/55; PULSE 78; RESP 18; O2SAT 97
[2020-10-03] MEDS: 0.9% Saline Lock 10 ML Syringe IV ×2 (03:53→16:55)
[2020-10-03] MEDS: Ketorolac 30 MG/ML Syringe IV (03:53)
[2020-10-03 04:00] VITALS: TEMP 36.2
[2020-10-03 04:14] LABS: Hematocrit 29.2 % (37-47); Hemoglobin 8.9 g/dL (12.0-15.0); Mean Corp Hgb Conc 30.5 g/dL (32-36); Mean Corpuscular Hgb 27.6 pg (27.0-32.0); Mean Corpuscular Volume 90.4 fL (81-99); Mean Platelet Vol. 9.4 fl (6.2-12.0); Platelet Count 243 K/mm3 (150-450); RBC Distribution Width CV 17.2 % (11.6-14.6); RBC Distribution Width SD 56.1 fl (35.1-43.9); Red Blood Count 3.23 M/mm3 (4.2-5.4); White Blood Count 8.7 K/mm3 (4.4-11.0)
[2020-10-03] MEDS: oxyCODONE 5 MG Tablet PO ×5 (04:16→21:18)
[2020-10-03 08:30] VITALS: BP 133/80; PULSE 74; RESP 18; TEMP 36.8; O2SAT 97
[2020-10-03] MEDS: Senna/Docusate Sodium 1 Tablet PO (10:13)
[2020-10-03] MEDS: Enoxaparin 40 MG/0.4 ML Syringe SC ×2 (10:13→21:19)
[2020-10-03] MEDS: Naproxen 500 MG Tablet PO ×2 (10:13→18:10)
--- NOTE | 2020-10-03 10:16 | PCM.PN.OB ---
Subjective Subjective Patient doing well without complaints. Tolerating PO. Ambulating and voiding without difficulty. Breast feeding well. Denies chest pain, shortness of breath, calf pain/swelling, fevers, chills, lightheadedness. Objective Data Objective Data Vital Signs: Vital Signs Temp Pulse Resp BP Pulse Ox 98.3 F 74 18 133/80 H 97 10/03/20 08:30 10/03/20 08:30 10/03/20 08:30 10/03/20 08:30 10/03/20 08:30 Oxygen Delivery Method Room Air Weight: 396 lb 3.2 oz Body Mass Index (BMI) 68.0 Intake & Output: Intake and Output for Last 24 Hours 10/01/20 10/02/20 10/03/20 23:59 23:59 23:59 Intake Total 2667.5 / 2667.5 Output Total 551 / 551 600 / 600 Balance 2116.5 / 2116.5 -600 / -600 Lab / Micro Data Result Diagrams: 10/03/20 04:10 Labs: Laboratory Results - last 24 hr 10/03/20 04:10 WBC 8.7 RBC 3.23 L Hgb 8.9 L Hct 29.2 L MCV 90.4 MCH 27.6 MCHC 30.5 L RDW Std Deviation 56.1 H RDW Coeff of Adin 17.2 H Plt Count 243 MPV 9.4 ROS Constitutional Constitutional: Denies fever(s) Cardiovascular Cardiovascular: Denies chest pain, dyspnea or lightheadedness Gastrointestinal Gastrointestinal: Reports abdominal pain; Denies constipation or diarrhea Neurologic Neurologic: Denies dizziness or headache(s) Physical Exam Const alert, oriented x3, no apparent distress, average body habitus, healthy appearing and well nourished HEENT normocephalic Head and Scalp: atraumatic Eyes PERRL and EOMs intact bilaterally Neck full ROM Lymph Lymphatic: no lymphadenopathy noted Resp normal respiratory effort, no retractions and no use of accessory muscles Cardio regular rate GI soft to palpation, non-tender and non-distended Inspection: incision intact and other (dressing in place) Palpation: other Other Details: fundus firm Extremity normal to inspection and no clubbing, cyanosis or edema Skin no rashes or lesions noted Neuro no focal motor deficits and no sensory deficits noted Psych mental status grossly normal, affect normal and speech normal Assessment & Plan (1) delivery delivered: PLAN: s/p LTCS PPD # 1 1. routine post care 2. breast feeding- support given 3. rh positive 4. rubella immune
[2020-10-03 14:15] VITALS: BP 125/65; PULSE 72; RESP 20; TEMP 36.1; O2SAT 97
[2020-10-03 20:35] VITALS: BP 134/60; PULSE 83; RESP 16; TEMP 36; O2SAT 96
[2020-10-04] MEDS: Acetaminophen 500 MG Tablet 1000 MG PO ×3 (00:30→11:57)
[2020-10-04 02:50] VITALS: BP 115/53; PULSE 83; RESP 16; TEMP 36.3; O2SAT 96
[2020-10-04] MEDS: oxyCODONE 5 MG Tablet PO (03:22)
[2020-10-04] MEDS: Naproxen 500 MG Tablet PO ×2 (03:22→10:49)
[2020-10-04 08:50] VITALS: BP 104/51; PULSE 83; RESP 18; TEMP 36.2; O2SAT 97
--- NOTE | 2020-10-04 08:50 | PCM.PN.OB ---
Subjective Subjective Patient doing well without complaints. Tolerating PO. Ambulating and voiding without difficulty. Breast feeding well. Denies chest pain, shortness of breath, calf pain/swelling, fevers, chills, lightheadedness. Objective Data Objective Data Vital Signs: Vital Signs Temp Pulse Resp BP Pulse Ox 97.3 F L 83 16 115/53 L 96 10/04/20 02:50 10/04/20 02:50 10/04/20 02:50 10/04/20 02:50 10/04/20 02:50 Oxygen Delivery Method Room Air Weight: 396 lb 3.2 oz Body Mass Index (BMI) 68.0 Intake & Output: Intake and Output for Last 24 Hours 10/02/20 10/03/20 10/04/20 23:59 23:59 23:59 Intake Total 2667.5 / 2667.5 Output Total 551 / 551 600 / 600 Balance 2116.5 / 2116.5 -600 / -600 Lab / Micro Data Result Diagrams: 10/03/20 04:10 ROS Constitutional Constitutional: Denies fever(s) Cardiovascular Cardiovascular: Denies chest pain, dyspnea or lightheadedness Gastrointestinal Gastrointestinal: Reports abdominal pain; Denies constipation or diarrhea Neurologic Neurologic: Denies dizziness or headache(s) Physical Exam Const alert, oriented x3, no apparent distress, average body habitus, healthy appearing and well nourished HEENT normocephalic Head and Scalp: atraumatic Eyes PERRL and EOMs intact bilaterally Neck full ROM Lymph Lymphatic: no lymphadenopathy noted Resp normal respiratory effort, no retractions and no use of accessory muscles Cardio regular rate GI soft to palpation, non-tender and non-distended Inspection: incision intact and other (dressing in place) Palpation: other Other Details: fundus firm Extremity normal to inspection and no clubbing, cyanosis or edema Skin no rashes or lesions noted Neuro no focal motor deficits and no sensory deficits noted Psych mental status grossly normal, affect normal and speech normal Assessment & Plan (1) delivery delivered: PLAN: s/p LTCS PPD #2 1. routine post care 2. breast feeding- support given 3. rh positive 4. rubella immune
[2020-10-04] MEDS: Enoxaparin 40 MG/0.4 ML Syringe SC (10:48)
[2020-10-04] MEDS: Senna/Docusate Sodium 1 Tablet PO (10:49)
[2020-10-04 13:00] VITALS: BP 104/51; PULSE 76; RESP 18; TEMP 36.3; O2SAT 96
== END 2020-10-04 13:15 | disposition home or self-care (01) | DRG 539 ==
PROVIDERS: Admitting Provider Obstetrics & Gynecology; Visit Provider Obstetrics & Gynecology
PROC: 10D00Z1 Extraction of Products of Conception, Low, Open Approach (ICD-10-PCS; CPT 59514; principal; 2020-10-02 07:15)
DX: O82 Encounter for cesarean delivery without indication (principal); Z3A.39 39 weeks gestation of pregnancy; Z37.0 Single live birth
CPT/HCPCS: 85025; 85027; 86850; 86900; 86901; 88302; 99218; J7120; A4216; G0378; J2405

== ENCOUNTER 2020-10-12 18:14 | Emergency (ER) | payer MEDICAID, SELFPAY ==
[2020-10-02 05:16] VITALS: BMI 68.0
[2020-10-12] VITALS (7 sets, daily range): BP systolic 134–160; BP diastolic 63–94; PULSE 44–56; RESP 18–21; TEMP 36.3–36.6; O2SAT 96–99; BMI 67.3
--- NOTE | 2020-10-12 18:18 | CM.ED ---
Addendum entered by Juliana Lewis 10/12/20 18:24: Entered in Error. Wrong chart. Juliana Lewis Original Note: SW Note SW Referral Source: Case Find SW Referral Reason: Mental Health SW called [facility] and left message for staff to call this life insurance underwriter.MAXINE received call from Suzi at [facility]. She said that they are out of funds for outside placement and that she had just called [facility] and spoke to Deandre. Deandre advised Suzi that they have everything they need for placement but may not have bed till Wednesday or Wednesday. radio electrician Sheela advised. Plan: [facility] placement at [facility] Juliana TRAN
--- NOTE | 2020-10-12 18:29 | CT_ITS ---
INDICATION: pleuritic cp post 10-02-20 ?? PE EXAMINATION: CTA Chest WO/W Contrast Injection TECHNIQUE: Helically acquired images were obtained of the chest following administration of IV contrast. A radiation dose optimization technique was used for this scan. 3D postprocessing images including MIPS were reviewed. IV Contrast dosage and agent: IV 100mL Isovue-370 COMPARISON: None. FINDINGS: Lungs: Airspace opacities in the right lung base could represent atelectasis versus infection. Diffuse bilateral groundglass opacities. Mediastinum: The cardiomediastinal silhouette is not enlarged. No mediastinal, hilar or axillary adenopathy. The thoracic aorta is unremarkable. No obvious filling defect seen within the visualized pulmonary arteries. Pleura: Unremarkable Bones/Soft tissues: No suspicious osseous or soft tissue lesions Upper abdomen: No visualized abnormalities in the upper abdomen. CT/CTA Chest W/WO Contrast IMPRESSION: No evidence of acute pulmonary emboli to segmental level. Diffuse groundglass opacities could represent interstitial edema. Airspace opacification in the right lung base could represent atelectasis versus infection. Electronically Signed: Steven Craven MD at 20:06 EDT Tel , Service support ,
--- NOTE | 2020-10-12 18:30 | EKG12_ITS ---
Test Reason : DYSRHYTHMIA Blood Pressure : / mmHG Vent. Rate : 051 BPM Atrial Rate : 051 BPM P-R Int : 156 ms QRS Dur : 092 ms QT Int : 424 ms P-R-T Axes : 019 030 052 degrees QTc Int : 390 ms Sinus bradycardia Otherwise normal ECG Confirmed by ARABELLA RESENDIZ, MICHELLE ([id number]), film editor BOB NUNO ([id number]) on 10/15/2020 10:10:44 AM Referred By: JOSE CARLOS Confirmed By:MICHELLE BELL MD
--- NOTE | 2020-10-12 18:32 | EDS_ITS ---
HPI History of Present Illness Chief Complaint: Shortness of Breath Informant: patient Onset/Context/Timing Onset: Days Context: Gradual Onset Timing: Continuous Current Severity: Mild Maximum Severity: Mild Narrative Narrative: 30-year-old female no significant past medical history. Recent C- section on October 02. States the last several days has had pain in her mid back and upper abdomen. Worse with deep breathing. Patient feels short of breath but that she cannot take a deep breath. No prior history of DVT or PE. She does have risk factors with her body habitus, recent recent hospitalization and recent surgery. She spoke to her [employer]ER today over the phone who sent her into the emergency department and wanted us to rule out a PE. Patient denies any fever, chills or cough. No hemoptysis. Prior similar symptoms: No Recent Illness/Hospitalization: No PFSH PFSH Medical History Hypertension affecting in second trimester Insulin resistance complicating Lab test positive for detection of COVID-19 virus Obesity affecting Supervision of high risk , antepartum Syncope Home Medications NK 10/12/20 [History Last Taken Unknown] Allergy/AdvReac Type Severity Reaction Status Date / Time latex Allergy Mild Rash Verified 10/12/20 18:18 Penicillins Allergy Other Verified 10/12/20 18:18 codeine AdvReac Unknown Other Verified 10/12/20 18:18 hydrocodone [From Vicodin] AdvReac Other Verified 10/12/20 18:18 Surgical History History of delivery History of placement of ear tubes History of tonsillectomy Hx of cholecystectomy Social History adopted: No household members: family number of children: 1 Smoking Status: Never smoker second hand exposure: No alcohol intake: never substance use type: does not use caffeine: Yes seatbelt use: always do you feel safe at home: Yes additional social history: Kristopher SANCHEZ ROS ED ROS Narrative Patient denies any recent illness. Review of Systems ROS Unobtainable: Denies due to encephalopathy Constitutional Constitutional ED: Denies fever(s), subjective or sweats Eyes Eyes: Denies change in vision ENT ENT ED: Denies ear pain or sore throat Cardiovascular Cardiovascular: Denies chest pain or palpitations Respiratory/Chest Respiratory/Chest: Reports dyspnea; Denies cough or sputum Gastrointestinal Gastrointestinal: Denies abdominal pain, constipation, diarrhea, nausea or vomiting Genitourinary Genitourinary ED: Denies dysuria Musculoskeletal Musculoskeletal: Denies myalgias Integumentary Denies rash Neurologic Neurologic: Denies headache(s) Psychiatric Psychiatric: Denies depression Endocrine Endocrinology: Denies polyuria Allergic/Immunologic Allergic/Immunologic ED: Denies urticaria EXAM Physical Exam Narrative Exam Narrative: Young female no acute distress vital signs stable and afebrile. Pulse ox 90% on room air no signs hypoxia. Lungs are clear to auscultation bilaterally. Heart rate about 60. No murmur. Abdomen soft. Her incision is dry and clean and actually is healing nicely. She still has some tenderness about the site. There is no signs of infection. She is moving all 4 extremities. Calves are nontender without edema or cords. Back nontender. Neurologically she is awake and alert. Const Vital Signs: 10/12/20 18:15 10/12/20 18:18 10/12/20 18:25 Temperature 98 F 98 F Temperature Source Temporal Temporal Pulse Rate 52 L 52 L Respiratory Rate 18 18 Respiratory Effort Normal Non-Labored Respiratory Depth Normal Respiratory Pattern Normal Blood Pressure 160/94 H 160/94 H Blood Pressure Mean 116 116 Pulse Ox 98 98 Oxygen Delivery Method Room Air Room Air Room Air 10/12/20 18:42 10/12/20 19:18 Temperature 97.3 F L Temperature Source Temporal Pulse Rate 56 L 52 L Respiratory Rate 18 Respiratory Effort Respiratory Depth Respiratory Pattern Blood Pressure 146/75 H 134/63 H Blood Pressure Mean 98 86 Pulse Ox 99 Oxygen Delivery Method Room Air HEENT tenderness; Negative for trauma Eyes PERRL and EOMs intact bilaterally Neck no lymphadenopathy, supple and no JVD General: Negative for tenderness Chest Wall inspection of chest normal and palpation of chest normal Resp normal respiratory effort and clear to auscultation bilaterally Cardio regular rate, regular rhythm, S1 normal heart sound, S2 normal heart sound and no murmurs GI normal to inspection, nondistended, normoactive bowel sounds and non-distended GI Narrative: incision dry and clean. Mild tenderness. Palpation: soft Back/Spine no CVA tenderness General Back: Negative for CVA tenderness Extremity normal to inspection General Extremety ED: Negative for tenderness Neuro oriented x3 and CN's II-XII intact bilaterally Sensorium / Orientation: alert Motor Exam: strength 5/5 throughout Psych mental status grossly normal Skin no rashes or lesions noted MDM MDM MDM Narrative Medical decision making narrative: 30-year-old female status post and on 526. Complaining of pleuritic upper abdominal and mid to lower back discomfort. Somewhat atypical the way she describes it but PE is in the differential. Her abdomen is benign there is no right upper quadrant tenderness. There is mild epigastric tenderness. Her looks well- healing. She undergo work-up and will rule out PE. Repeat exam at 8:10 PM the patient is doing well. Went over all of her test results. She will be discharged home. I will discuss test results also with her [employer]. Lab Data Lab results narrative: CBC normal white count. Hemoglobin 8.4 consistent with her recent and -induced anemia. D-dimer elevated 3.7. Electrolytes unremarkable normal creatinine and gap. Liver enzymes unremarkable. CTA of the chest is read by the radiologist shows no PE. Labs: Laboratory Results - last 24 hr 10/12/20 10/12/20 10/12/20 18:55 18:55 18:55 WBC 8.9 RBC 3.14 L Hgb 8.4 L Hct 27.4 L MCV 87.3 MCH 26.8 L MCHC 30.7 L RDW Std Deviation 50.4 H RDW Coeff of Adin 15.9 H Plt Count 317 MPV 9.8 Immature Gran % (Auto) 1.200 H Neut % (Auto) 67.1 Lymph % (Auto) 21.9 Young % (Auto) 6.1 Eos % (Auto) 3.3 Baso % (Auto) 0.4 Absolute Neuts (auto) 6.0 Absolute Lymphs (auto) 1.95 Nucleated RBC % 0 D-Dimer Quant (PE/DVT) 3.72 H* Sodium 144 Potassium 4.2 Chloride 111 H Carbon Dioxide 26.0 Anion Gap 7 BUN 17 Creatinine 0.82 Estim Creat Clear Calc 86.63 Est GFR (MDRD) Af Amer 106 Est GFR (MDRD) Non-Af 87 BUN/Creatinine Ratio 20.8 H Glucose 100 Calcium 8.2 L Total Bilirubin 0.30 AST 27 ALT 44 Alkaline Phosphatase 103 Total Protein 6.5 Albumin 2.8 L Globulin 3.7 Albumin/Globulin Ratio 0.8 L Radiography Diagnostic Testing: Radiology Impression Chest CTA 10/12/20 18:29 IMPRESSION: No evidence of acute pulmonary emboli to segmental level. Diffuse groundglass opacities could represent interstitial edema. Airspace opacification in the right lung base could represent atelectasis versus infection. Electronically Signed: Steven Craven MD at 20:06 EDT Tel , Service support , EKG Initial EKG: Attestation: I personally reviewed and interpreted this EKG as follows: Interpretation: Sinus Rhythm, No Acute Injury Pattern and Sinus Bradycardia Comments: Sinus bradycardia rate of 51 no acute signs of LA or ischemia. No [id number]. Prior EKG tracings: not available for review Prior: No Prior Discharge Plan Triage Chief Complaint: Shortness of Breath ED Provider: Favio Pedro Dx/Rx/DC Orders Clinical Impression: Chest pain of unknown etiology Instructions: ED Chest Pain, Uncertain Cause Prescriptions: No Action NK RF: 0 Primary Care Provider: Loretta Castro Referrals: Loretta Castro MD [Primary Care Provider] - 3-5 Days Activity Restrictions/Additional Instructions: Follow-up with your [employer]ER. No signs of blood clot tonight.
[2020-10-12] MEDS: 0.9% Normal Saline 1,000 ML 1000 ML IV (18:57)
[2020-10-12 19:09] LABS: Absolute Lymphocyte Count 1.95 X10^3/uL (0.83-4.51); Basophil# 0.04 X10^3/uL; Basophil% 0.4 % (0-1); Eosinophil# 0.29 X10^3/uL; Eosinophils% 3.3 % (0-5); Hematocrit 27.4 % (37-47); Hemoglobin 8.4 g/dL (12.0-15.0); Lymphocyte # 1.95 X10^3/ul (0.83-4.51); Lymphocyte % 21.9 % (19-41); Mean Corp Hgb Conc 30.7 g/dL (32-36); Mean Corpuscular Hgb 26.8 pg (27.0-32.0); Mean Corpuscular Volume 87.3 fL (81-99); Mean Platelet Vol. 9.8 fl (6.2-12.0); Monocyte# 0.54 X10^3/uL; Monocyte% 6.1 % (0-10); NRBC Flagged by Analyzer 0 % (0-5); Neutrophil # 5.99 X10^3/uL (2.7-7.7); Neutrophil % 67.1 % (47-70); Platelet Count 317 K/mm3 (150-450); RBC Distribution Width CV 15.9 % (11.6-14.6); RBC Distribution Width SD 50.4 fl (35.1-43.9); Red Blood Count 3.14 M/mm3 (4.2-5.4); White Blood Count 8.9 K/mm3 (4.4-11.0)
[2020-10-12 19:20] LABS: ALB/GLOB Ratio 0.8 RATIO (0.9-2.4); AST(SGOT) 27 U/L (15-37); Alanine Aminotransfer ALT/SGPT 44 U/L (13-56); Albumin, Serum 2.8 g/dL (3.2-5.0); Alkaline Phosphatase 103 U/L (45-117); Anion Gap 7 (5-15); BUN 17 mg/dL (7-18); BUN/Creat Ratio 20.8 RATIO (10-20); Calcium,Total 8.2 mg/dL (8.5-10.1); Chloride 111 mmol/L (98-107); Creatinine, Serum 0.82 mg/dL (0.55-1.02); EST Glomerular Filtration Rate 87 mL/min (>60); Est Glom Filt Rate - Afr Amer 106 mL/min (>60); Estimated Creatinine Clearance 86.63 ml/min; Globulin 3.7 g/dL (2.2-4.2); Glucose 100 mg/dL (74-106); Potassium 4.2 mmol/L (3.5-5.1); Protein, Total 6.5 g/dL (6.4-8.2); Sodium Level 144 mmol/L (136-145)
[2020-10-12 20:02] LABS: D-Dimer Quantitative (DVT/PE) 3.72 FEU/ug/m (0.27-0.49)
== END 2020-10-12 21:00 | disposition home or self-care (01) ==
LOC: ED 19:23
PROVIDERS: Emergency Provider Emergency Medicine; PCP Obstetrics & Gynecology
DX: O90.89 Other complications of the puerperium, not elsewhere classified (principal); R07.9 Chest pain, unspecified; R06.02 Shortness of breath; R10.10 Upper abdominal pain, unspecified; R10.816 Epigastric abdominal tenderness; M54.5 Low back pain; O99.215 Obesity complicating the puerperium; E66.9 Obesity, unspecified
CPT/HCPCS: 71275; 80053; 85025; 85379; 93005; 96360; 99284; J7030; Q9967; A4216

== ENCOUNTER → 2020-10-24 | Outpatient (CLI) | payer MEDICAID, SELFPAY ==
[2020-10-24 11:57] VITALS: BMI 67.3
== END | disposition home or self-care (01) ==
PROVIDERS: PCP Obstetrics & Gynecology; Referring Provider Nurse Practitioner Women's Health; Visit Provider Nurse Practitioner Women's Health
DX: T81.49XA Infection following a procedure, other surgical site, initial encounter (principal)
CPT/HCPCS: 87070; 87077; 87186; 87205